=== PATIENT | male | born 1985 | race Caucasian/White ===

== ENCOUNTER → 2016-05-17 | Outpatient (CLI) | payer MEDICARE, OTHER ==
--- NOTE | 2016-05-20 13:51 | XR ---
EXAMINATION TYPE: XR knee complete LT DATE OF EXAM: 05/17/2016 4:42 PM COMPARISON: NONE HISTORY: Injury, pain, fall TECHNIQUE: 3 views left knee FINDINGS: No acute fractures are evident. Joint spaces are preserved. No joint effusion is evident. F ollow-up study can be performed 7-10 days from acute trauma for continued pain. IMPRESSION: 1. Normal left knee
--- NOTE | 2016-05-20 13:52 | XR ---
EXAMINATION TYPE: XR ankle complete LT DATE OF EXAM: 05/17/2016 4:42 PM COMPARISON: 09/09/2013 HISTORY: Fall, pain TECHNIQUE: 3 views left ankle FINDINGS: No acute fractures are evident. Plate and screws from prior open reduction internal fixatio n of the distal fibula is evident. The ankle mortise is intact. Some degenerative change of the talot ibial junction may be present. IMPRESSION: 1. No acute osseous abnormality.
== END | disposition home or self-care (01) ==
LOC: RADXRYALE 16:14
PROVIDERS: ATTEND Physician Assistant Medical
DX: S89.92XA Unspecified injury of left lower leg, initial encounter (principal); S99.912A Unspecified injury of left ankle, initial encounter

== ENCOUNTER → 2016-05-23 | Outpatient (CLI) | payer MEDICARE, OTHER ==
--- NOTE | 2016-05-24 07:37 | XR ---
EXAMINATION TYPE: XR ankle limited LT DATE OF EXAM: 05/23/2016 9:35 AM COMPARISON: NONE HISTORY: Pain TECHNIQUE: 3 views of the left ankle are submitted for evaluation. FINDINGS: There is no evidence for fracture or dislocation. Postoperative plate fixation of the dista l fibula. Ankle mortise is intact. Soft tissues are within normal limits. IMPRESSION: 1. No evidence for acute fracture.
== END | disposition home or self-care (01) ==
LOC: RADXRYALE 09:16
PROVIDERS: ATTEND Physician Assistant Medical
DX: S99.912D Unspecified injury of left ankle, subsequent encounter (principal); M25.572 Pain in left ankle and joints of left foot; X58.XXXD Exposure to other specified factors, subsequent encounter

== ENCOUNTER → 2016-06-20 | Outpatient (CLI) | payer MEDICARE, OTHER ==
--- NOTE | 2016-06-21 07:29 | XR ---
EXAMINATION TYPE: XR wrist complete RT DATE OF EXAM: 06/20/2016 3:25 PM CLINICAL HISTORY: Fall injury last night with pain centered over distal ulna. TECHNIQUE: Frontal, lateral and oblique images of the right wrist are obtained. COMPARISON: None FINDINGS: There is no acute fracture/dislocation evident in the right wrist. The joint spaces in th e right wrist appear within normal limits. The overlying soft tissue appears unremarkable. IMPRESSION: There is no acute fracture or dislocation in the right wrist.
== END | disposition home or self-care (01) ==
LOC: RADXRYALE 15:14
PROVIDERS: ATTEND Physician Assistant Medical
DX: S69.91XA Unspecified injury of right wrist, hand and finger(s), initial encounter (principal)

== ENCOUNTER 2016-11-24 02:30 | Emergency (ER) | payer MEDICARE, OTHER ==
[2016-11-24] MEDS ORDERED: KETOROLAC 60 MG/2 ML VIAL IM STA (02:49)
[2016-11-24] MEDS ORDERED: ORPHENADRINE 30 MG/ML 2 ML VIAL IM STA (02:49)
--- NOTE | 2016-11-24 02:52 | ED ---
General Adult HPI - General Chief complaint: Back Pain/Injury Stated complaint: back/neck pain Time Seen by Provider: 11/24/16 02:45 Source: patient, RN notes reviewed Mode of arrival: ambulatory Limitations: no limitations - History of Present Illness Initial comments: 31-year-old male presents to the emergency Department chief complaint of low back pain that radiates up into the neck. Patient states this started on Friday after he was eating and mowing the weeds in his yard he did have a few falls. Patient states there is been no loss of bowel or bladder function. Patient states he does have back pain from time to time this seems much like that pain is just more intense than his normal pain. Patient states there is no other injuries from his fall. Patient states that he was concerned due to his pains without that he should be seen. Patient states he did not take anything for the pain.Patient denies any recent fever, chills, shortness of breath, chest pain, abdominal pain, nausea vomiting, numbness or tingling, dysuria or hematuria, constipation or diarrhea, headaches or visual changes, or any other current symptoms. - Related Data Previous Rx's Medication Instructions Recorded Ibuprofen [Motrin] 600 mg PO Q6HR PRN #20 tab 11/24/16 Allergies Allergy/AdvReac Type Severity Reaction Status Date / Time No Known Allergies Allergy Verified 11/24/16 02:42 Review of Systems ROS Statement: Those systems with pertinent positive or pertinent negative responses have been documented in the HPI. ROS Other: All systems not noted in ROS Statement are negative. Past Medical History Past Medical History: No Reported History Additional Past Medical History / Comment(s): neuropathy History of Any Multi-Drug Resistant Organisms: None Reported Past Surgical History: Orthopedic Surgery, Tonsillectomy Additional Past Surgical History / Comment(s): left ankle Past Psychological History: Depression Smoking Status: Never smoker Past Alcohol Use History: None Reported Past Drug Use History: None Reported - Past Family History Mother Family Medical History: Hearing Disorder / Deafness Father Family Medical History: Cancer General Exam Limitations: no limitations General appearance: alert, in no apparent distress Head exam: Present: atraumatic, normocephalic, normal inspection ENT exam: Present: normal exam, mucous membranes moist Neck exam: Present: normal inspection. Absent: tenderness, meningismus, lymphadenopathy Respiratory exam: Present: normal lung sounds bilaterally. Absent: respiratory distress, wheezes, rales, rhonchi, stridor Cardiovascular Exam: Present: regular rate, normal rhythm, normal heart sounds. Absent: systolic murmur, diastolic murmur, rubs, gallop, clicks Extremities exam: Present: normal inspection, full ROM, normal capillary refill. Absent: tenderness, pedal edema, joint swelling, calf tenderness Back exam: Present: normal inspection, full ROM, tenderness (Over the midline lumbar spine). Absent: CVA tenderness (R), CVA tenderness (L), muscle spasm, paraspinal tenderness, rash noted Neurological exam: Present: alert, oriented X3 Psychiatric exam: Present: normal affect, normal mood Skin exam: Present: warm, dry, intact, normal color. Absent: rash Course Vital Signs 11/24/16 02:39 Temperature 99 F Pulse Rate 100 Respiratory 18 Rate Blood Pressure 123/79 O2 Sat by Pulse 97 Oximetry Medical Decision Making - Medical Decision Making 30-year-old male presents with back pain. This time patient appears to have a lumbar strain. This time we discussed Motrin Tylenol for pain control. We discussed return parameters and follow-up and all his questions. He stated he understood and he is very plan. This time patient will be discharged home. - Radiology Data Radiology results: image reviewed Interpreted by me: Interpreted by me: Lumbar spine xray: 3 view, no fracture, no dislocation, no bony lesions, no foreign bodies, no soft tissue damage. Waiting official radiology read. Disposition Clinical Impression: Lumbar strain Disposition: HOME SELF-CARE Condition: Stable Instructions: Low Back Strain (ED), Lower Back Exercises (ED) Additional Instructions: Please use medication as discussed. Please follow up with family doctor if symptoms have not improved over the next two days. Please return to the emergency room if your symptoms increase or worsen or for any other concerns. Prescriptions: Ibuprofen [Motrin] 600 mg PO Q6HR PRN #20 tab PRN Reason: Pain Referrals: Titi Aguilar DO [Primary Care Provider] - 1-2 days Time of Disposition: 03:44
--- NOTE | 2016-11-24 03:51 | XR ---
EXAM: XR Lumbar Spine, 2 or 3 Views CLINICAL HISTORY: Reason: Low back pain 3 days. No injury. TECHNIQUE: Frontal and lateral views of the lumbar spine. COMPARISON: Lumbar spine radiographs on 12/03/2015 FINDINGS: Bones: No acute fracture or subluxation identified. No bony lesion. Disc spaces: Stable minimal retrolisthesis of L5 on S1. Stable mild degenerative disc disease. IMPRESSION: No acute abnormality identified.
[2016-11-24 04:02] VITALS: BP 142/68; PULSE 68; RESP 16; TEMP 98.4
== END 2016-11-24 04:00 | disposition home or self-care (01) ==
LOC: EC 02:30
DX: S39.012A Strain of muscle, fascia and tendon of lower back, initial encounter (principal); X58.XXXA Exposure to other specified factors, initial encounter
CPT/HCPCS: 72100; 99283; 96372 ×2; J2360; J1885

== ENCOUNTER 2017-02-01 19:22 | Emergency (ER) | payer MEDICARE, OTHER ==
[2017-02-01 19:57] LABS: Appearance,Urine Clear (Clear); Bilirubin,Urine Negative (Negative); Glucose,Urine (UA) Negative (Negative); Ketones,Urine Negative (Negative); Leukocyte Esterase,Urine Negative (Negative); Nitrite,Urine Negative (Negative); PH, Urine 5.5 (5.0-8.0); Protein,Urine Negative (Negative); Specific Gravity,Urine 1.018 (1.001-1.035); UA Billing (MACRO vs. MICRO) CHEM; Urobilinogen,Urine <2.0 mg/dL (<2.0)
--- NOTE | 2017-02-01 20:35 | ED ---
General Adult HPI - General Chief complaint: Abdominal Pain Stated complaint: Male Time Seen by Provider: 02/01/17 19:48 Source: patient, RN notes reviewed Mode of arrival: ambulatory Limitations: no limitations - History of Present Illness Initial comments: Chief complaint and history of present illness a 31-year-old male here with a complaint of testicular discomfort and low back pain. He reports this started acutely around 5 PM. Patient does have peripheral neuropathy which causes him to have bilateral foot drop. Patient denies any low back injury lifting twisting turning. Denies any nausea sweats or vomiting. No abdominal pain. - Related Data Home Medications Medication Instructions Recorded Confirmed Ibuprofen [Motrin] 800 mg PO TID PRN 02/01/17 02/01/17 Previous Rx's Medication Instructions Recorded Ibuprofen [Motrin] 600 mg PO Q6HR PRN #20 tab 02/01/17 Allergies Allergy/AdvReac Type Severity Reaction Status Date / Time No Known Allergies Allergy Verified 02/01/17 19:42 Review of Systems ROS Statement: Those systems with pertinent positive or pertinent negative responses have been documented in the HPI. Review of systems no visual acuity changes no headache no stiff neck no chest pain or shortness of breath no GI problems. problems include just discomfort to his testes. Patient denies any injuries. Denies being sexually active. No new neuro deficits. All systems were reviewed. Past medical problems significant for neuropathy and history of inherited through the family his grandmother had the same problem. He reports that since age 3 he's had bilateral foot drop. He wears prosthetic devices to keep his ankles at right angles. Nonsmoker nondrinker. ALLERGIES none. ROS Other: All systems not noted in ROS Statement are negative. Past Medical History Past Medical History: No Reported History Additional Past Medical History / Comment(s): neuropathy History of Any Multi-Drug Resistant Organisms: None Reported Past Surgical History: Orthopedic Surgery, Tonsillectomy Additional Past Surgical History / Comment(s): left ankle Past Psychological History: Depression Smoking Status: Never smoker Past Alcohol Use History: None Reported Past Drug Use History: None Reported - Past Family History Mother Family Medical History: Hearing Disorder / Deafness Father Family Medical History: Cancer General Exam - General Exam Comments Initial Comments: General: The patient is awake and alert, and discomfort to both testicles. Starting approximately 5 PM. No direct injury. Left and right field equally uncomfortable. He also complains of mild low back discomfort. States he occasionally has a Linda urinating. Vital signs are temperature 98.5 pulse 97 respiratory rate 16 pulse ox 97% room air blood pressure 157/90 Eye: Pupils are equal, , extra-ocular movements are intact; there is normal conjunctiva bilaterally. No signs of icterus. Ears, nose, mouth and throat: There are moist mucous membranes Neck: The neck is supple, there is no tenderness. Cardiovascular: There is a regular rate and rhythm. No murmur, rub or gallop is appreciated. Respiratory: Lungs are clear to auscultation, respirations are non-labored, breath sounds are equal. No wheezes, stridor, rales, or rhonchi. Gastrointestinal: Soft, non-distended, non-tender abdomen without masses or organomegaly noted. There is no rebound or guarding present. No CVA tenderness. Bowel sounds are unremarkable. [place] normal. Testes normal in size. No pain with examination of the inguinal areas. Normal prostatic reflexes bilaterally. No penile discharge. Back: Mild low back pain Musculoskeletal: Chronic neuropathy necessitating prosthetic devices so he can walk. Neurological: CN II-XII intact, There are no obvious motor or sensory deficits. Coordination appears grossly intact. Speech is normal. No new neurological deficits. Skin: Skin is warm and dry and no rashes or lesions are noted. Limitations: no limitations Course Vital Signs 02/01/17 19:34 Temperature 98.5 F Pulse Rate 97 Respiratory 16 Rate Blood Pressure 157/90 O2 Sat by Pulse 97 Oximetry Medical Decision Making - Medical Decision Making Patient is urine is clean no signs of infection or blood. Patient is also having low back discomfort. No neuro deficits. The patient will this time be placed on ibuprofen 600 mg 1 tablet every 6 hours. Advised to call follow up with his family physician or return emergency room as needed. Clinically no evidence of any pathology to his testicles. Patient states discomfort to his testicles is minimal. He will be treated with ibuprofen advised follow-up with family physician. The pain returns or changes in any fashion to return emergency room as needed. - Lab Data Lab Results 02/01/17 Range/Units 19:45 Urine Color Yellow Urine Appearance Clear (Clear) Urine pH 5.5 (5.0-8.0) Ur Specific [place] 1.018 (1.001-1.035) Urine Protein Negative (Negative) Urine Glucose (UA) Negative (Negative) Urine Ketones Negative (Negative) Urine Blood Negative (Negative) Urine Nitrite Negative (Negative) Urine Bilirubin Negative (Negative) Urine Urobilinogen <2.0 (<2.0) mg/dL Ur Leukocyte Esterase Negative (Negative) Disposition Clinical Impression: Low back pain Disposition: HOME SELF-CARE Condition: Fair Instructions: Low Back Strain (ED), Testicle Pain (ED) Additional Instructions: Take ibuprofen for pain. Follow family physician. Discomfort increases return emergency room. Prescriptions: Ibuprofen [Motrin] 600 mg PO Q6HR PRN #20 tab PRN Reason: Pain Referrals: Titi Aguilar DO [Primary Care Provider] - 1-2 days Time of Disposition: 20:54
[2017-02-01] MEDS ORDERED: IBUPROFEN 600 MG STARTER PACK 4 TAB BTL PO STA (20:51)
[2017-02-01 21:04] VITALS: BP 132/66; PULSE 84; RESP 20; TEMP 98
== END 2017-02-01 21:04 | disposition home or self-care (01) ==
LOC: EC 19:22
DX: M54.5 Low back pain (principal); N50.89 Other specified disorders of the male genital organs; G62.9 Polyneuropathy, unspecified; M21.372 Foot drop, left foot; M21.371 Foot drop, right foot
CPT/HCPCS: 81003; 87086; 99284

== ENCOUNTER 2017-02-18 04:57 | Emergency (ER) | payer MEDICARE, OTHER ==
--- NOTE | 2017-02-18 05:12 | ED ---
General Adult HPI - General Stated complaint: chest pain,arm pain Time Seen by Provider: 02/18/17 05:00 Source: RN notes reviewed - History of Present Illness Initial comments: This is a 31-year-old male comes in stating he has had some chest pain for 3 weeks. Patient states it occurs when he wakes up with a little anxiety. Patient states he sometimes feels short of breath with the pain. Patient states taking a deep breath or moving his arms seems to make the pain worse. And he sometimes gets tingling in both of his fingers. Patient denies any smoking history. Patient denies any diabetes high blood pressure high cholesterol. Patient states he has had this tightness in the middle the night many times before. Patient denies any recent fever chills or cough. Patient denies abdominal pain patient denies nausea vomiting diarrhea. Patient denies any episode diaphoresis. - Related Data Home Medications Medication Instructions Recorded Confirmed Ibuprofen [Motrin] 800 mg PO TID PRN 02/01/17 02/01/17 Previous Rx's Medication Instructions Recorded Ibuprofen [Motrin] 600 mg PO Q6HR PRN #20 tab 02/01/17 Allergies Allergy/AdvReac Type Severity Reaction Status Date / Time No Known Allergies Allergy Verified 02/18/17 05:12 Review of Systems ROS Statement: Those systems with pertinent positive or pertinent negative responses have been documented in the HPI. ROS Other: All systems not noted in ROS Statement are negative. Past Medical History Past Medical History: No Reported History Additional Past Medical History / Comment(s): neuropathy History of Any Multi-Drug Resistant Organisms: None Reported Past Surgical History: Orthopedic Surgery, Tonsillectomy Additional Past Surgical History / Comment(s): left ankle Past Psychological History: Depression Smoking Status: Never smoker Past Alcohol Use History: None Reported Past Drug Use History: None Reported - Past Family History Mother Family Medical History: Hearing Disorder / Deafness Father Family Medical History: Cancer General Exam - General Exam Comments Initial Comments: GENERAL: Patient is well-developed and well-nourished. Patient is nontoxic and well- hydrated and is in no acute distress. ENT: Neck is soft and supple. No significant lymphadenopathy is noted. Oropharynx is clear. Moist mucous membranes. Neck has full range of motion without eliciting any pain. EYES: The sclera were anicteric and conjunctiva were pink and moist. Extraocular movements were intact and pupils were equal round and reactive to light. Eyelids were unremarkable. PULMONARY: Unlabored respirations. Good breath sounds bilaterally. No audible rales rhonchi or wheezing was noted. CARDIOVASCULAR: There is a regular rate and rhythm without any murmurs gallops or rubs. Palpating the patient's chest reproduced the pain. ABDOMEN: Soft and nontender with normal bowel sounds. No palpable organomegaly was noted. There is no palpable pulsatile mass. SKIN: Skin is clear with no lesions or rashes and otherwise unremarkable. NEUROLOGIC: Patient is alert and oriented x3. Cranial nerves II through XII are grossly intact. Motor and sensory are also intact. Normal speech, volume and content. Symmetrical smile. MUSCULOSKELETAL: Normal extremities with adequate strength and full range of motion. No lower extremity swelling or edema. No calf tenderness. LYMPHATICS: No significant lymphadenopathy is noted PSYCHIATRIC: Normal psychiatric evaluation. Normal interpersonal interactions appears functionally intact in deals appropriately with others. No signs of depression. Mild anxiety Course Vital Signs 02/18/17 05:00 Temperature 98.4 F Pulse Rate 96 Respiratory 20 Rate Blood Pressure 149/92 O2 Sat by Pulse 97 Oximetry Medical Decision Making - Medical Decision Making EKG shows normal sinus rhythm at 97 bpm IA interval is 136 dresses 94 QT interval 348 QTC is 441. Patient's EKG shows no ST segment elevation or depression or T wave abnormalities are noted. - Lab Data Result diagrams: 02/18/17 05:30 02/18/17 05:30 Lab Results 02/18/17 02/18/17 02/18/17 Range/Units 05:30 05:30 05:30 WBC 10.5 (3.8-10.6) k/uL RBC 4.25 L (4.30-5.90) m/uL Hgb 14.4 (13.0-17.5) gm/dL Hct 42.7 (39.0-53.0) % MCV 100.4 H (80.0-100.0) fL MCH 33.8 (25.0-35.0) pg MCHC 33.7 (31.0-37.0) g/dL RDW 15.1 (11.5-15.5) % Plt Count 227 (150-450) k/uL Neutrophils % 75 % Lymphocytes % 18 % Monocytes % 4 % Eosinophils % 1 % Basophils % 0 % Neutrophils # 7.9 H (1.3-7.7) k/uL Lymphocytes # 1.8 (1.0-4.8) k/uL Monocytes # 0.4 (0-1.0) k/uL Eosinophils # 0.2 (0-0.7) k/uL Basophils # 0.0 (0-0.2) k/uL Macrocytosis Slight PT (9.0-12.0) sec INR (<1.2) APTT (22.0-30.0) sec Sodium 137 (137-145) mmol/L Potassium 4.2 (3.5-5.1) mmol/L Chloride 104 (98-107) mmol/L Carbon Dioxide 22 (22-30) mmol/L Anion Gap 11 mmol/L BUN 14 (9-20) mg/dL Creatinine 0.60 L (0.66-1.25) mg/dL Est GFR (MDRD) Af Amer >60 (>60 ml/min/1.73 sqM) Est GFR (MDRD) Non-Af >60 (>60 ml/min/1.73 sqM) Glucose 132 H (74-99) mg/dL Calcium 9.5 (8.4-10.2) mg/dL Magnesium 1.9 (1.6-2.3) mg/dL Total Bilirubin 0.4 (0.2-1.3) mg/dL AST 19 (17-59) U/L ALT 42 (21-72) U/L Alkaline Phosphatase 83 (38-126) U/L Total Creatine Kinase 92 (55-170) U/L CK-MB (CK-2) 3.0 H* (0.0-2.4) ng/mL CK-MB (CK-2) Rel Index 3.3 Troponin I <0.012 (0.000-0.034) ng/mL Total Protein 6.8 (6.3-8.2) g/dL Albumin 3.9 (3.5-5.0) g/dL 02/18/17 Range/Units 05:30 WBC (3.8-10.6) k/uL RBC (4.30-5.90) m/uL Hgb (13.0-17.5) gm/dL Hct (39.0-53.0) % MCV (80.0-100.0) fL MCH (25.0-35.0) pg MCHC (31.0-37.0) g/dL RDW (11.5-15.5) % Plt Count (150-450) k/uL Neutrophils % % Lymphocytes % % Monocytes % % Eosinophils % % Basophils % % Neutrophils # (1.3-7.7) k/uL Lymphocytes # (1.0-4.8) k/uL Monocytes # (0-1.0) k/uL Eosinophils # (0-0.7) k/uL Basophils # (0-0.2) k/uL Macrocytosis PT 11.3 (9.0-12.0) sec INR 1.1 (<1.2) APTT 19.5 L (22.0-30.0) sec Sodium (137-145) mmol/L Potassium (3.5-5.1) mmol/L Chloride (98-107) mmol/L Carbon Dioxide (22-30) mmol/L Anion Gap mmol/L BUN (9-20) mg/dL Creatinine (0.66-1.25) mg/dL Est GFR (MDRD) Af Amer (>60 ml/min/1.73 sqM) Est GFR (MDRD) Non-Af (>60 ml/min/1.73 sqM) Glucose (74-99) mg/dL Calcium (8.4-10.2) mg/dL Magnesium (1.6-2.3) mg/dL Total Bilirubin (0.2-1.3) mg/dL AST (17-59) U/L ALT (21-72) U/L Alkaline Phosphatase (38-126) U/L Total Creatine Kinase (55-170) U/L CK-MB (CK-2) (0.0-2.4) ng/mL CK-MB (CK-2) Rel Index Troponin I (0.000-0.034) ng/mL Total Protein (6.3-8.2) g/dL Albumin (3.5-5.0) g/dL Disposition Clinical Impression: Anxiety, Chest wall pain Disposition: HOME SELF-CARE Instructions: Chest Pain (ED) Referrals: Titi Aguilar DO [Primary Care Provider] - 1-2 days Time of Disposition: 06:31
[2017-02-18 05:37] LABS: Basophils % (A) 0 %; CH 34.6; CHCM 34.6; Eosinophils # (A) 0.2 k/uL (0-0.7); Eosinophils % (A) 1 %; HCT 42.7 % (39.0-53.0); HDW 3.14; HGB 14.4 gm/dL (13.0-17.5); Luc # (Auto) 0.16; Luc % (Auto) 2; Lymphocytes # (A) 1.8 k/uL (1.0-4.8); Lymphocytes % (A) 18 %; MCH 33.8 pg (25.0-35.0); MCHC 33.7 g/dL (31.0-37.0); MCV 100.4 fL (80.0-100.0); Macrocytosis Slight; Mean Platelet Volume 6.6; Monocytes # (A) 0.4 k/uL (0-1.0); Monocytes % (A) 4 %; Neutrophils # (A) 7.9 k/uL (1.3-7.7); Neutrophils % (A) 75 %; RBC 4.25 m/uL (4.30-5.90); RDW 15.1 % (11.5-15.5); WBC 10.5 k/uL (3.8-10.6); WBC (Perox) 10.04
[2017-02-18 05:45] LABS: ALT 42 U/L (21-72); AST 19 U/L (17-59); Alkaline Phosphatase 83 U/L (38-126); Anion Gap 11 mmol/L; Blood Urea Nitrogen 14 mg/dL (9-20); Calcium 9.5 mg/dL (8.4-10.2); Carbon Dioxide 22 mmol/L (22-30); Chloride 104 mmol/L (98-107); Glucose 132 mg/dL (74-99); INR 1.1 (<1.2); Magnesium 1.9 mg/dL (1.6-2.3); Non-African American GFR(MDRD) >60 (>60 ml/min/1.73 sqM); Potassium 4.2 mmol/L (3.5-5.1); Prothrombin Time 11.3 sec (9.0-12.0); Sodium 137 mmol/L (137-145); Total Bilirubin 0.4 mg/dL (0.2-1.3); Total Protein 6.8 g/dL (6.3-8.2)
[2017-02-18 06:00] LABS: Partial Thromboplastin Time 19.5 sec (22.0-30.0)
--- NOTE | 2017-02-18 06:03 | XR ---
EXAM: XR Chest, 2 Views CLINICAL HISTORY: Chest pain TECHNIQUE: Frontal and lateral views of the chest. COMPARISON: Chest x-ray dated 10/31/2014 FINDINGS: Lungs: Unremarkable. No consolidation. Pleural space: Unremarkable. No pneumothorax. Heart: Unremarkable. No cardiomegaly. Mediastinum: Unremarkable. Bones/joints: Unremarkable. IMPRESSION: Normal chest x-rays.
[2017-02-18 06:04] LABS: Creatine Kinase 92 U/L (55-170)
[2017-02-18 06:17] LABS: Troponin I <0.012 ng/mL (0.000-0.034)
[2017-02-18 06:40] VITALS: BP 124/58; PULSE 79; RESP 16; TEMP 96.9
== END 2017-02-18 06:39 | disposition home or self-care (01) ==
LOC: EC 04:57
DX: F41.9 Anxiety disorder, unspecified (principal); R07.89 Other chest pain; R06.02 Shortness of breath
CPT/HCPCS: 36415; 71020; 80053; 82550; 82553; 83735; 84484; 85025; 85610; 85730; 93005; 99285

== ENCOUNTER 2017-11-03 15:41 | Emergency (ER) | payer MEDICARE, OTHER ==
[2017-11-03 15:50] VITALS: BP 132/83; PULSE 114; RESP 18; TEMP 98
--- NOTE | 2017-11-03 15:56 | ED ---
Lower Extremity Injury HPI - General Chief Complaint: Extremity Injury, Lower Stated Complaint: foot injury Time Seen by Provider: 11/03/17 15:46 Source: patient, RN notes reviewed Mode of arrival: ambulatory Limitations: no limitations - History of Present Illness Initial Comments: This is a 32-year-old male presents emergency Department with chief complaint of right foot and ankle pain. Patient states that he injured it while mowing the grass. Patient states he tripped and fell. Patient denies any other injuries. Patient states he always wears braces to his lower extremity secondary to neuropathy. Patient denies any notable swelling, bruising. Patient states the pain is along the lateral aspect of his ankle and foot. - Related Data Home Medications Medication Instructions Recorded Confirmed Ibuprofen [Motrin] 800 mg PO TID PRN 02/01/17 02/01/17 Previous Rx's Medication Instructions Recorded Ibuprofen [Motrin] 600 mg PO Q6HR PRN #20 tab 02/01/17 Allergies Allergy/AdvReac Type Severity Reaction Status Date / Time No Known Allergies Allergy Verified 02/18/17 05:12 Review of Systems ROS Statement: Those systems with pertinent positive or pertinent negative responses have been documented in the HPI. ROS Other: All systems not noted in ROS Statement are negative. Past Medical History Past Medical History: No Reported History Additional Past Medical History / Comment(s): neuropathy History of Any Multi-Drug Resistant Organisms: None Reported Past Surgical History: Orthopedic Surgery, Tonsillectomy Additional Past Surgical History / Comment(s): left ankle Past Psychological History: Depression Smoking Status: Never smoker Past Alcohol Use History: Rare Past Drug Use History: None Reported - Past Family History Mother Family Medical History: Hearing Disorder / Deafness Father Family Medical History: Cancer General Exam Limitations: no limitations General appearance: alert, in no apparent distress Head exam: Present: atraumatic, normocephalic, normal inspection Respiratory exam: Present: normal lung sounds bilaterally. Absent: respiratory distress, wheezes, rales, rhonchi, stridor Cardiovascular Exam: Present: regular rate, normal rhythm, normal heart sounds. Absent: systolic murmur, diastolic murmur, rubs, gallop, clicks Extremities exam: Present: other (Right ankle there is tenderness of lateral malleolus and tenderness to lateral right foot there is no obvious deformity no ecchymosis no swelling pedal pulses are present 2+) Skin exam: Present: warm, dry, intact, normal color. Absent: rash Course Vital Signs 11/03/17 15:47 Temperature 98 F Pulse Rate 114 H Respiratory 18 Rate Blood Pressure 132/83 O2 Sat by Pulse 97 Oximetry Medical Decision Making - Medical Decision Making This is a 32-year-old male that presented for right foot and ankle injury. X- rays reviewed by me and radiologist no acute fracture. Patient has a right foot sprain will be discharged this time with conservative treatment rest, ice elevation and ibuprofen. Return parameters were discussed. Disposition Clinical Impression: Right foot sprain Disposition: HOME SELF-CARE Condition: Stable Instructions: Foot Sprain (ED) Additional Instructions: Please return to the Emergency Department if symptoms worsen or any other concerns. Is patient prescribed a controlled substance at d/c from ED?: No Referrals: Titi Aguilar DO [Primary Care Provider] - 1-2 days Time of Disposition: 16:48
--- NOTE | 2017-11-03 16:38 | XR ---
EXAMINATION TYPE: XR foot complete RT DATE OF EXAM: 11/03/2017 COMPARISON: NONE HISTORY: Ankle pain TECHNIQUE: 3 views FINDINGS: I see no fracture nor dislocation. Metatarsals are intact. Joint spaces are normal. IMPRESSION: Normal right foot
--- NOTE | 2017-11-03 16:39 | XR ---
EXAMINATION TYPE: XR ankle complete RT DATE OF EXAM: 11/03/2017 COMPARISON: NONE HISTORY: Ankle pain TECHNIQUE: 3 views FINDINGS: I see no fracture nor dislocation. Joint spaces are normal. Ankle mortise is anatomic. IMPRESSION: Negative right ankle exam
== END 2017-11-03 16:55 | disposition home or self-care (01) ==
LOC: EC 15:41
DX: S93.601A Unspecified sprain of right foot, initial encounter (principal); W01.0XXA Fall on same level from slipping, tripping and stumbling without subsequent striking against object, initial encounter; Y93.89 Activity, other specified
CPT/HCPCS: 99283

== ENCOUNTER → 2017-12-11 | Outpatient (CLI) | payer MEDICARE, OTHER ==
--- NOTE | 2017-12-11 10:52 | XR ---
EXAMINATION TYPE: XR knee complete LT DATE OF EXAM: 12/11/2017 CLINICAL HISTORY: Knee pain after fall injury last week. TECHNIQUE: Three views of the left knee are obtained. COMPARISON: Prior left knee x-ray May 17, 2016 FINDINGS: There is no acute fracture/dislocation evident in left knee. The tri-compartment joint sp aces appear within normal limits. There are 2 persistent ossific densities projecting over the centra l distal femoral epiphysis on frontal view appear to be posterior in location on lateral view, they a re localized to bone on lateral view, frontal view shows some soft tissue extension on current study. Suspect predominantly intraosseous lesions, would favor a nonaggressive etiology. They were present on prior, lateral lesion is seen better on current study however. Sclerotic thin margins are noted. T he overlying soft tissue appears unremarkable. IMPRESSION: There is no acute fracture or dislocation in the left knee. Possible intraosseous lesion s distal femur versus adjacent ossification favoring benign, differential includes prominent fabellas . If patient has persistent pain not related to injury consider further investigation with CT and/or MRI.
== END | disposition home or self-care (01) ==
LOC: RADXRYALE 10:13
PROVIDERS: ATTEND Physician Assistant Medical
DX: M25.562 Pain in left knee (principal)

== ENCOUNTER 2018-01-02 21:18 | Emergency (ER) | payer MEDICARE, OTHER ==
[2018-01-02 21:26] VITALS: BP 145/88; RESP 20; TEMP 98.3
--- NOTE | 2018-01-02 21:56 | XR ---
EXAMINATION TYPE: XR finger RT DATE OF EXAM: 01/02/2018 COMPARISON: NONE HISTORY: Laceration TECHNIQUE: 3 views FINDINGS: 3 views of the right middle finger were obtained. I see no fracture nor dislocation. There is no sign of a foreign body. Joint spaces are normal. IMPRESSION: Minimal soft tissue deformity at the tip of the middle finger. Otherwise negative exam.
--- NOTE | 2018-01-02 21:56 | ED ---
General Adult HPI - General Chief complaint: Wound/Laceration Stated complaint: Lac/Finger Time Seen by Provider: 01/02/18 21:27 Source: patient, RN notes reviewed Mode of arrival: ambulatory Limitations: no limitations - History of Present Illness Initial comments: 32-year-old male presents to the emergency determine for chief complaint of laceration to the distal right third digit. Patient states this occurred when he was closing his screen door after letting his dog again. Patient states he has some tenderness in the distal phalanx of the right third digit. Patient denies any other injuries. Patient states his tetanus is up-to-date in the past 4 years. Patient denies difficulty moving the right third digit. Patient denies history of diabetes. Patient has no other complaints at this time including shortness of breath, chest pain, abdominal pain, nausea or vomiting, headache, or visual changes. - Related Data Home Medications Medication Instructions Recorded Confirmed Ibuprofen [Motrin] 800 mg PO TID PRN 02/01/17 02/01/17 Previous Rx's Medication Instructions Recorded Ibuprofen [Motrin] 600 mg PO Q6HR PRN #20 tab 02/01/17 Allergies Allergy/AdvReac Type Severity Reaction Status Date / Time No Known Allergies Allergy Verified 01/02/18 21:24 Review of Systems ROS Statement: Those systems with pertinent positive or pertinent negative responses have been documented in the HPI. ROS Other: All systems not noted in ROS Statement are negative. Past Medical History Past Medical History: No Reported History Additional Past Medical History / Comment(s): neuropathy History of Any Multi-Drug Resistant Organisms: None Reported Past Surgical History: Orthopedic Surgery, Tonsillectomy Additional Past Surgical History / Comment(s): left ankle Past Psychological History: Depression Smoking Status: Never smoker Past Alcohol Use History: Rare Past Drug Use History: None Reported - Past Family History Mother Family Medical History: Hearing Disorder / Deafness Father Family Medical History: Cancer General Exam Limitations: no limitations General appearance: alert, in no apparent distress Head exam: Present: atraumatic, normocephalic, normal inspection Eye exam: Present: normal appearance. Absent: scleral icterus, conjunctival injection ENT exam: Present: normal exam, mucous membranes moist Neck exam: Present: normal inspection, full ROM. Absent: tenderness, meningismus, lymphadenopathy Respiratory exam: Present: normal lung sounds bilaterally. Absent: respiratory distress, wheezes, rales, rhonchi, stridor Cardiovascular Exam: Present: regular rate, normal rhythm, normal heart sounds. Absent: systolic murmur, diastolic murmur, rubs, gallop, clicks Extremities exam: Present: full ROM (Full range of motion of the right third digit including the MCP, PIP, and DIP joints.), tenderness (Mild tenderness to the distal phalanx of the right third digit), normal capillary refill ( Capillary refill less than 2 seconds and radial pulse 2+ in the right upper extremity), other (Sensation intact in the right third digit. There is a 1 cm superficial laceration to the left third digit. It is well approximated. Bleeding is under control. No drainage or signs of infection such as spreading redness or streaking redness. No foreign bodies noted.) Neurological exam: Present: alert, oriented X3, CN II-XII intact Psychiatric exam: Present: normal affect, normal mood Course Vital Signs 01/02/18 01/02/18 21:24 22:23 Temperature 98.3 F Pulse Rate 116 H 101 H Respiratory 20 Rate Blood Pressure 145/88 O2 Sat by Pulse 98 Oximetry Medical Decision Making - Medical Decision Making 32-year-old male presents to the emergency department for a laceration of the distal right third finger of her about one hour ago. Patient states he slammed it in a sliding door. Patient's tetanus is up-to-date. Patient is a 1 cm laceration to the distal phalanx of the third finger of the right hand. Laceration appears superficial. Patient has full range of motion of the right third digit.. X-ray of the right finger shows no sign of foreign body. Minimal soft tissue deformity at the tip of the 3rd finger. Otherwise negative exam. Patient was soaked in soap and water and cleaned with iodine. Wound was inspected for foreign bodies and none were found as it is very superficial. Laceration was then repaired with Exofin. Patient tolerated this well. I did discuss monitoring for signs of infection such as spreading redness or streaking redness and to return if this occurs. Patient will likely fall off on its own. He will follow-up with primary care in 1-2 days. He is aware to return if he has any worsening symptoms. Patient's heart rate did decrease from 116 to 101, patient states he is still feeling nervous after hitting his finger in the door which is likely the cause of minor tachycardia. Disposition Clinical Impression: Laceration Disposition: HOME SELF-CARE Condition: Good Instructions: Laceration (ED), Skin Adhesive Care (ED) Additional Instructions: Please let glue fall off on its own. Monitor for signs of infection such as spreading redness or streaking redness and return if these occur. Follow-up with primary care in 1-2 days. Return to the emergency department if you have any worsening symptoms. Is patient prescribed a controlled substance at d/c from ED?: No Referrals: Titi Aguilar DO [Primary Care Provider] - 1-2 days Time of Disposition: 22:21
[2018-01-02] MEDS ORDERED: TOPICAL SKIN ADHESIVE 1 EACH AMP TOPICAL ONE (21:59)
[2018-01-02 22:23] VITALS: PULSE 101
== END 2018-01-02 22:25 | disposition home or self-care (01) ==
LOC: EC 21:18
DX: S61.212A Laceration without foreign body of right middle finger without damage to nail, initial encounter (principal); W22.8XXA Striking against or struck by other objects, initial encounter; Y92.009 Unspecified place in unspecified non-institutional (private) residence as the place of occurrence of the external cause
CPT/HCPCS: 99283

== ENCOUNTER 2019-09-20 02:56 | Emergency (ER) | payer MEDICARE, OTHER ==
[2019-09-20 03:13] VITALS: PULSE 86; RESP 18; TEMP 97.9
--- NOTE | 2019-09-20 03:32 | ED ---
Fall HPI - General Chief Complaint: Back Pain/Injury Stated Complaint: fall Time Seen by Provider: 09/20/19 02:58 Source: patient, RN notes reviewed, old records reviewed Mode of arrival: ambulatory - History of Present Illness Initial Comments: This is a 33-year-old male presented with mechanical trip and fall trip and fall falling backwards causing back pain and Botox pain. Patient is able ambulate does present to ER under own power. No loss of bowel or bladder neurological complaint. 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, recurrent falls Fall Witnessed: no Place Fall Occurred: work Loss of Consciousness: none Prolonged Down Time?: no Symptoms Prior to Fall: none Location: back, buttocks Severity: moderate, severe Quality: aching Context: tripped/slipped Associated Symptoms: denies - Related Data Home Medications Medication Instructions Recorded Confirmed Ibuprofen [Motrin] 800 mg PO TID PRN 02/01/17 02/01/17 Previous Rx's Medication Instructions Recorded Ibuprofen [Motrin] 600 mg PO Q6HR PRN #20 tab 02/01/17 Allergies Allergy/AdvReac Type Severity Reaction Status Date / Time No Known Allergies Allergy Verified 09/20/19 03:12 Review of Systems ROS Statement: Those systems with pertinent positive or pertinent negative responses have been documented in the HPI. ROS Other: All systems not noted in ROS Statement are negative. Past Medical History Past Medical History: No Reported History Additional Past Medical History / Comment(s): neuropathy History of Any Multi-Drug Resistant Organisms: None Reported Past Surgical History: Orthopedic Surgery, Tonsillectomy Additional Past Surgical History / Comment(s): left ankle Past Psychological History: Depression Smoking Status: Never smoker Past Alcohol Use History: Rare Past Drug Use History: None Reported - Past Family History Mother Family Medical History: Hearing Disorder / Deafness Father Family Medical History: Cancer General Exam Limitations: no limitations General appearance: alert, in no apparent distress Head exam: Present: atraumatic, normocephalic, normal inspection Eye exam: Present: normal appearance, PERRL, EOMI. Absent: scleral icterus, conjunctival injection, periorbital swelling ENT exam: Present: normal exam, mucous membranes moist Neck exam: Present: normal inspection. Absent: tenderness, meningismus, lymphadenopathy Respiratory exam: Present: normal lung sounds bilaterally. Absent: respiratory distress, wheezes, rales, rhonchi, stridor Cardiovascular Exam: Present: regular rate, normal rhythm, normal heart sounds. Absent: systolic murmur, diastolic murmur, rubs, gallop, clicks GI/Abdominal exam: Present: soft, normal bowel sounds. Absent: distended, tenderness, guarding, rebound, rigid Extremities exam: Present: normal inspection, full ROM, normal capillary refill. Absent: tenderness, pedal edema, joint swelling, calf tenderness Back exam: Present: normal inspection Neurological exam: Present: alert, oriented X3, CN II-XII intact Psychiatric exam: Present: normal affect, normal mood Skin exam: Present: warm, dry, intact, normal color. Absent: rash Course Vital Signs 09/20/19 09/20/19 03:06 05:08 Temperature 97.9 F 97.9 F Pulse Rate 86 86 Respiratory 18 18 Rate Blood Pressure 138/88 138/84 O2 Sat by Pulse 99 99 Oximetry - Reevaluation(s) Reevaluation #1: Medical records reviewed Patient asymptomatic pain is improved with no neurological findings, able to ambulate Medical Decision Making - Medical Decision Making 33 male DF status post mechanical fall a few days. No complaints pain was just been persistent. - Radiology Data Radiology results: report reviewed (X-rays of the spine is negative for acute disease), image reviewed Disposition Clinical Impression: Mechanical back pain, Mid back pain, Thoracic back pain, Fall Disposition: HOME SELF-CARE Condition: Good Instructions (If sedation given, give patient instructions): Acute Low Back Pain (ED) Is patient prescribed a controlled substance at d/c from ED?: No Referrals: Nonstaff,Physician [Primary Care Provider] - 1-2 days
[2019-09-20] MEDS ORDERED: HYDROcodone/APAP 5-325MG 1 EACH TAB PO STA (03:41)
[2019-09-20] MEDS ORDERED: KETOROLAC 60 MG/2 ML VIAL IM STA (03:41)
--- NOTE | 2019-09-20 04:32 | XR ---
EXAMINATION TYPE: XR spine complete AP and Lat DATE OF EXAM: 09/20/2019 COMPARISON: NONE HISTORY: Fall. Neck pain. TECHNIQUE: 9 views FINDINGS: Cervical thoracic and lumbar vertebra have normal alignment. There is mild anterior spurrin g at C5-6 endplates. Posterior elements are intact. There is no thoracic paraspinal mass. There is no compression fracture. The sacroiliac joints appear intact. There are no cervical ribs. IMPRESSION: Minor degenerative disc changes C5-6. Negative exam. No fracture.
[2019-09-20 05:09] VITALS: BP 138/84
== END 2019-09-20 05:20 | disposition home or self-care (01) ==
LOC: EC 02:56
DX: M54.6 Pain in thoracic spine (principal); Z98.890 Other specified postprocedural states; W01.0XXA Fall on same level from slipping, tripping and stumbling without subsequent striking against object, initial encounter; Y93.89 Activity, other specified; Y92.096 Garden or yard of other non-institutional residence as the place of occurrence of the external cause
CPT/HCPCS: 72082; 99284; 96372; J1885

== ENCOUNTER 2021-01-13 06:56 | Emergency (ER) | payer MEDICARE, OTHER ==
[2021-01-13 07:04] VITALS: BP 124/83; PULSE 99; RESP 22; TEMP 98
[2021-01-13] MEDS ORDERED: DICYCLOMINE 20 MG TAB PO STA (07:15)
--- NOTE | 2021-01-13 07:39 | XR ---
EXAMINATION TYPE: XR KUB DATE OF EXAM: 01/13/2021 7:30 AM CLINICAL HISTORY: Lower back pain and constipation. TECHNIQUE: 3 Upright KUB images of the abdomen are obtained. COMPARISON: None. FINDINGS: Some paucity of bowel gas. Gas seen in nondistended stomach. Scattered gas seen in nondiste nded small and large bowel loops. There is no visceromegaly, pneumoperitoneum, or abnormal calcificat ion appreciated. The lung bases are clear and the osseous structures are intact. IMPRESSION: Overall nonspecific strongly favor nonobstructive bowel gas pattern.
[2021-01-13 07:43] LABS: Appearance,Urine Clear (Clear); Bilirubin,Urine Negative (Negative); Blood,Urine Negative (Negative); Color,Urine Yellow; Glucose,Urine (UA) Negative (Negative); Ketones,Urine Negative (Negative); Leukocyte Esterase,Urine Negative (Negative); Nitrite,Urine Negative (Negative); PH, Urine 5.5 (5.0-8.0); Protein,Urine Negative (Negative); Specific Gravity,Urine 1.026 (1.001-1.035); Urobilinogen,Urine <2.0 mg/dL (<2.0)
--- NOTE | 2021-01-13 07:54 | ED ---
Abdominal Pain HPI - General Chief Complaint: Abdominal Pain Stated Complaint: ABD Pain Time Seen by Provider: 01/13/21 07:05 Source: patient, RN notes reviewed Mode of arrival: ambulatory Limitations: no limitations - History of Present Illness Initial Comments: 35-year-old male presents emergency Department with chief complaint lower abdominal cramping. Patient states started approximate one hour prior arrival. No fevers chills denies any nausea vomiting diarrhea or dysuria no hematuria patient states he feels constipated which is not a usual. Patient offers no other complaints. No prior abdominal surgeries. - Related Data Home Medications Medication Instructions Recorded Confirmed Ibuprofen [Motrin] 800 mg PO TID PRN 02/01/17 02/01/17 Previous Rx's Medication Instructions Recorded Ibuprofen [Motrin] 600 mg PO Q6HR PRN #20 tab 02/01/17 Dicyclomine [Bentyl] 20 mg PO TID #15 tablet 01/13/21 Allergies Allergy/AdvReac Type Severity Reaction Status Date / Time No Known Allergies Allergy Verified 01/13/21 07:04 Review of Systems ROS Statement: Those systems with pertinent positive or pertinent negative responses have been documented in the HPI. ROS Other: All systems not noted in ROS Statement are negative. Past Medical History Past Medical History: No Reported History Additional Past Medical History / Comment(s): neuropathy History of Any Multi-Drug Resistant Organisms: None Reported Past Surgical History: Orthopedic Surgery, Tonsillectomy Additional Past Surgical History / Comment(s): left ankle Past Psychological History: Depression Smoking Status: Never smoker Past Alcohol Use History: Rare Past Drug Use History: None Reported - Past Family History Mother Family Medical History: Hearing Disorder / Deafness Father Family Medical History: Cancer General Exam Limitations: no limitations General appearance: alert, in no apparent distress Head exam: Present: atraumatic, normocephalic, normal inspection Eye exam: Present: normal appearance, PERRL, EOMI. Absent: scleral icterus, conjunctival injection, periorbital swelling Respiratory exam: Present: normal lung sounds bilaterally. Absent: respiratory distress, wheezes, rales, rhonchi, stridor Cardiovascular Exam: Present: regular rate, normal rhythm, normal heart sounds. Absent: systolic murmur, diastolic murmur, rubs, gallop, clicks GI/Abdominal exam: Present: soft, normal bowel sounds. Absent: distended, tenderness, guarding, rebound, rigid Back exam: Absent: CVA tenderness (R), CVA tenderness (L) Course Vital Signs 01/13/21 07:02 Temperature 98 F Pulse Rate 99 Respiratory 22 Rate Blood Pressure 124/83 O2 Sat by Pulse 97 Oximetry Medical Decision Making - Medical Decision Making X-rays shows moderate stool and gas, urinalysis unremarkable patient feels improved after Bentyl symptoms started 1 hour prior to arrival with normal vitals. Return parameters were discussed. - Lab Data Lab Results 01/13/21 Range/Units 07:00 Urine Color Yellow Urine Appearance Clear (Clear) Urine pH 5.5 (5.0-8.0) Ur Specific [place] 1.026 (1.001-1.035) Urine Protein Negative (Negative) Urine Glucose (UA) Negative (Negative) Urine Ketones Negative (Negative) Urine Blood Negative (Negative) Urine Nitrite Negative (Negative) Urine Bilirubin Negative (Negative) Urine Urobilinogen <2.0 (<2.0) mg/dL Ur Leukocyte Esterase Negative (Negative) Disposition Clinical Impression: Abdominal pain Disposition: HOME SELF-CARE Condition: Stable Instructions (If sedation given, give patient instructions): Abdominal Pain (ED) Additional Instructions: Please return to the Emergency Department if symptoms worsen or any other concerns. Prescriptions: Dicyclomine [Bentyl] 20 mg PO TID #15 tablet Is patient prescribed a controlled substance at d/c from ED?: No Referrals: Louie Stockton MD [Primary Care Provider] - 1-2 days Time of Disposition: 07:53
== END 2021-01-13 08:01 | disposition home or self-care (01) ==
LOC: EC 06:56
DX: R10.30 Lower abdominal pain, unspecified (principal)
CPT/HCPCS: 74018; 81003; 99284

== ENCOUNTER 2021-08-25 13:38 | Emergency (ER) | payer MEDICARE, OTHER ==
[2021-08-25 13:50] VITALS: BP 132/80; PULSE 90; RESP 18; TEMP 98.6
--- NOTE | 2021-08-25 15:56 | XR ---
EXAMINATION TYPE: XR knee complete RT DATE OF EXAM: 08/25/2021 COMPARISON: NONE HISTORY: Pain TECHNIQUE: 3 views FINDINGS: I see no fracture nor dislocation. Knee joint spaces are normal. There are no pathologic ca lcifications. IMPRESSION: Negative right knee exam.
--- NOTE | 2021-08-25 15:57 | XR ---
EXAMINATION TYPE: XR ankle complete RT DATE OF EXAM: 08/25/2021 COMPARISON: 11/03/2017 HISTORY: Pain TECHNIQUE: 3 views FINDINGS: Ankle mortise is anatomic. I see no fracture nor dislocation. Joint spaces are normal. IMPRESSION: Negative right ankle exam. No change.
--- NOTE | 2021-08-25 15:58 | XR ---
EXAMINATION TYPE: XR foot complete RT DATE OF EXAM: 08/25/2021 COMPARISON: NONE HISTORY: Pain TECHNIQUE: 3 views FINDINGS: There is nondisplaced transverse fracture across the base of the third and fourth metatarsa ls. The toes appear intact. Joint spaces are normal. IMPRESSION: Acute metatarsal fractures.
--- NOTE | 2021-08-25 16:29 | ED ---
Lower Extremity Injury HPI - General Chief Complaint: Extremity Injury, Lower Stated Complaint: RT foot and knee pain, Fell Time Seen by Provider: 08/25/21 16:12 Source: patient, RN notes reviewed Mode of arrival: wheelchair Limitations: no limitations - History of Present Illness Initial Comments: This is a pleasant 35-year-old male who presents after tripping and his room and injuring his right foot and right leg. Patient complaining of sharp pain which is exacerbated by attempted ambulation, movement, palpation. Denies any other injuries. No distal paresthesias. No headache, no fever or chills, no changes in vision or hearing, no sore throat or difficulty with speech, no neck pain, no chest pain or shortness of breath, no abdominal pain, no nausea or vomiting, no changes in urination or bowel movements, no numbness or tingling, no skin rashes or lesions. 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 Patient has his own shop clerk. - Related Data Home Medications Medication Instructions Recorded Confirmed Ibuprofen [Motrin] 800 mg PO TID PRN 02/01/17 02/01/17 Previous Rx's Medication Instructions Recorded Ibuprofen [Motrin] 600 mg PO Q6HR PRN #20 tab 02/01/17 Dicyclomine [Bentyl] 20 mg PO TID #15 tablet 01/13/21 Allergies Allergy/AdvReac Type Severity Reaction Status Date / Time No Known Allergies Allergy Verified 08/25/21 13:50 Review of Systems ROS Statement: Those systems with pertinent positive or pertinent negative responses have been documented in the HPI. ROS Other: All systems not noted in ROS Statement are negative. Past Medical History Past Medical History: No Reported History Additional Past Medical History / Comment(s): neuropathy History of Any Multi-Drug Resistant Organisms: None Reported Past Surgical History: Orthopedic Surgery, Tonsillectomy Additional Past Surgical History / Comment(s): left ankle Past Psychological History: Depression Smoking Status: Never smoker Past Alcohol Use History: Rare Past Drug Use History: None Reported - Past Family History Mother Family Medical History: Hearing Disorder / Deafness Father Family Medical History: Cancer General Exam Limitations: no limitations General appearance: alert, in no apparent distress Head exam: Present: atraumatic, normocephalic, normal inspection Eye exam: Present: normal appearance, PERRL, EOMI. Absent: scleral icterus, conjunctival injection, periorbital swelling ENT exam: Present: normal exam, mucous membranes moist Neck exam: Present: normal inspection, full ROM. Absent: tenderness, meningismus, lymphadenopathy Respiratory exam: Present: normal lung sounds bilaterally. Absent: respiratory distress, wheezes, rales, rhonchi, stridor Cardiovascular Exam: Present: regular rate, normal rhythm, normal heart sounds. Absent: systolic murmur, diastolic murmur, rubs, gallop, clicks GI/Abdominal exam: Present: soft, normal bowel sounds. Absent: distended, tenderness, guarding, rebound, rigid Extremities exam: Present: normal inspection, full ROM, tenderness, normal capillary refill, other (Tenderness to the dorsum of the foot which is mild due to the patient's neuropathy. Neurovascular status intact. Skin closed. No crepitus. No proximal or distal injuries.). Absent: pedal edema, joint swelling, calf tenderness Back exam: Present: normal inspection Neurological exam: Present: alert, oriented X3, CN II-XII intact Psychiatric exam: Present: normal affect, normal mood Skin exam: Present: warm, dry, intact, normal color. Absent: rash Course Vital Signs 08/25/21 13:48 Temperature 98.6 F Pulse Rate 90 Respiratory 18 Rate Blood Pressure 132/80 O2 Sat by Pulse 98 Oximetry Procedures - Orthopedic Splinting/Casting Injury #1 Side: right Lower Extremity Injury Location: short leg (Posterior mold), foot Lower Extremity Immobilizer: posterior splint, Gaurav wrap, fiberglass cast Other Orthopedic Equipment: walker (Patient has his own walker, neurovascular status intact both pre-and post-application.) Medical Decision Making - Medical Decision Making Metatarsal fractures per radiology. I did review these films myself. Patient appears to have a fracture to the proximal end of the third and fourth metatarsals. These are closed, nondisplaced. Patient placed in a splint. Patient has known neuropathy due to previous medical condition. Vascular access appears to be normal. - Radiology Data Radiology results: report reviewed, image reviewed Disposition Clinical Impression: Closed fracture of metatarsal of right foot Narrative: Closed, proximal right third and fourth metatarsal fractures right foot, nondisplaced Disposition: HOME SELF-CARE Condition: Good Instructions (If sedation given, give patient instructions): Foot Fracture in Adults (ED), Splint Care (ED) Additional Instructions: Follow-up with your regular physician as directed. Return to the ER immediately if any symptoms worsen, new symptoms arise, or any other problems develop. Use a walker at all times. Follow-up with your shop clerk on Friday as planned. Is patient prescribed a controlled substance at d/c from ED?: No Referrals: Pancho Vega DPM [STAFF PHYSICIAN] - As Soon As Possible Time of Disposition: 16:52
== END 2021-08-25 17:23 | disposition home or self-care (01) ==
LOC: EC 13:38
DX: S92.301A Fracture of unspecified metatarsal bone(s), right foot, initial encounter for closed fracture (principal); W18.30XA Fall on same level, unspecified, initial encounter
CPT/HCPCS: 29515; 99284

== ENCOUNTER 2022-02-20 12:26 | Inpatient (IN) | payer MEDICARE, MEDICAID ==
--- NOTE | 2022-02-20 15:17 | ED ---
Psych HPI - General Chief Complaint: Psychiatric Symptoms Stated Complaint: mental health Time Seen by Provider: 02/20/22 14:47 Source: patient, EMS, RN notes reviewed Mode of arrival: EMS Limitations: no limitations - History of Present Illness Initial Comments: 36-year-old male presents emergency Department with chief complaint of a psychiatric help. Patient is currently very paranoid, having difficulty at home cc orally stress. Patient denies any suicidal or homicidal denies illicit drug use no alcohol abuse. Patient states this is from the stress of taking care of his mother states that he cannot do this anymore. Patient states she's can have a breakdown. - Related Data Home Medications Medication Instructions Recorded Confirmed Clindamycin Phosphate [Cleocin T 1 applic TOPICAL BID 02/20/22 02/20/22 1%] Nugenix Free Testosterone Booster 3 cap PO DAILY 02/20/22 02/20/22 Nugenix Multivitamin 2 tab PO DAILY 02/20/22 02/20/22 Nugenix Pm 4 cap PO HS 02/20/22 02/20/22 Nugenix Ultimate 4 tab PO DAILY 02/20/22 02/20/22 Nugenix Vitality Booster 3 cap PO DAILY 02/20/22 02/20/22 Nystatin [Nystop] 1 applic TOPICAL BID 02/20/22 02/20/22 Omeprazole 40 mg PO DAILY 02/20/22 02/20/22 Semaglutide [Ozempic] See Taper SQ WE 02/20/22 02/20/22 Vitamin D3(Unknown) 1 tab PO DAILY 02/20/22 02/20/22 metFORMIN HCL 1,000 mg PO BID 02/20/22 02/20/22 Allergies Allergy/AdvReac Type Severity Reaction Status Date / Time No Known Allergies Allergy Verified 02/20/22 17:45 Review of Systems ROS Statement: Those systems with pertinent positive or pertinent negative responses have been documented in the HPI. ROS Other: All systems not noted in ROS Statement are negative. Past Medical History Past Medical History: No Reported History Additional Past Medical History / Comment(s): neuropathy History of Any Multi-Drug Resistant Organisms: None Reported Past Surgical History: Orthopedic Surgery, Tonsillectomy Additional Past Surgical History / Comment(s): left ankle Past Psychological History: Depression Smoking Status: Never smoker Past Alcohol Use History: Rare Past Drug Use History: None Reported - Past Family History Mother Family Medical History: Hearing Disorder / Deafness Father Family Medical History: Cancer General Exam Limitations: no limitations General appearance: alert, in no apparent distress Head exam: Present: atraumatic, normocephalic, normal inspection Eye exam: Present: normal appearance, PERRL, EOMI. Absent: scleral icterus, conjunctival injection, periorbital swelling ENT exam: Present: normal exam, mucous membranes moist Neck exam: Present: normal inspection, full ROM. Absent: tenderness, meningismus, lymphadenopathy Respiratory exam: Present: normal lung sounds bilaterally. Absent: respiratory distress, wheezes, rales, rhonchi, stridor Cardiovascular Exam: Present: regular rate, normal rhythm, normal heart sounds. Absent: systolic murmur, diastolic murmur, rubs, gallop, clicks GI/Abdominal exam: Present: soft, normal bowel sounds. Absent: distended, tenderness, guarding, rebound, rigid Course Vital Signs 02/20/22 02/20/22 13:11 19:19 Temperature 98.2 F 98.5 F Pulse Rate 86 97 Respiratory 16 14 Rate Blood Pressure 143/83 116/74 O2 Sat by Pulse 100 97 Oximetry Medical Decision Making - Lab Data Lab Results 02/20/22 02/20/22 Range/Units 15:31 19:18 Urine Opiates Screen Not Detected (NotDetected) Ur Oxycodone Screen Not Detected (NotDetected) Urine Methadone Screen Not Detected (NotDetected) Ur Propoxyphene Screen Not Detected (NotDetected) Ur Barbiturates Screen Not Detected (NotDetected) U Tricyclic Antidepress Not Detected (NotDetected) Ur Phencyclidine Scrn Not Detected (NotDetected) Ur Amphetamines Screen Not Detected (NotDetected) U Methamphetamines Scrn Not Detected (NotDetected) U Benzodiazepines Scrn Not Detected (NotDetected) Urine Cocaine Screen Not Detected (NotDetected) U Marijuana (THC) Screen Not Detected (NotDetected) Coronavirus (PCR) Not Detected (Not Detectd) Disposition Clinical Impression: Depression Disposition: [facility] Time of Disposition: 06:00
[2022-02-20 15:52] LABS: Amphetamine Screen,Urine Not Detected (NotDetected); Barbiturate Screen,Urine Not Detected (NotDetected); Benzodiazepines Screen,Urine Not Detected (NotDetected); Cocaine Screen,Urine Not Detected (NotDetected); Methadone Screen, Urine Not Detected (NotDetected); Opiate Screen,Urine Not Detected (NotDetected); Oxycodone Screen, Urine Not Detected (NotDetected); Phencyclidine Screen,Urine Not Detected (NotDetected); Tricyclic Antidepressant,Urine Not Detected (NotDetected); Urn Cannabinoid Scrn Not Detected (NotDetected)
[2022-02-20] MEDS ORDERED: MAGNESIUM HYDROXIDE 2,400 MG/10 ML CUP PO PRN (21:20)
[2022-02-20] MEDS ORDERED: haloperidoL 5 MG TAB PO PRN (21:20)
[2022-02-20] MEDS ORDERED: HALOPERIDOL LACTATE 5 MG/ML 1 ML VIAL IM PRN (21:20)
[2022-02-20] MEDS ORDERED: LORazepam 1 MG/0.5 ML VIAL IM PRN (21:20)
[2022-02-20] MEDS ORDERED: MAG HYDROX/AL HYDROX/SIMETH 30 ML CUP PO PRN (21:20)
[2022-02-20] MEDS ORDERED: LORazepam 1 MG TAB PO PRN (21:20)
[2022-02-21] MEDS: PANTOPRAZOLE 40 MG TABLET PO SCH (07:40)
[2022-02-21] MEDS: NICOTINE 14MG/24HR PATCH TRANSDERM SCH (07:40)
[2022-02-21] MEDS: metFORMIN 500 MG TAB PO SCH ×2 (07:40→20:05)
[2022-02-21] MEDS: CHOLECALCIFEROL 25 MCG (1000 IU) TABLET PO SCH (07:40)
[2022-02-21 07:41] LABS: Glucose,Whole Blood 117 mg/dL (70-110)
[2022-02-21] MEDS: NYSTATIN 100,000 UNIT/GM POWD 15 GM TOPICAL SCH ×2 (07:41→20:06)
[2022-02-21] MEDS: NON FORMULARY DRUG (Clindamycin Phosphate [Cleocin T 1%] 60 ML Lotion) TOPICAL SCH ×2 (07:42→20:06)
[2022-02-21 10:17] LABS: Basophils % (A) 0 %; Eosinophils # (A) 0.1 k/uL (0-0.7); Eosinophils % (A) 1 %; HCT 41.4 % (39.0-53.0); HGB 14.2 gm/dL (13.0-17.5); Lymphocytes # (A) 1.5 k/uL (1.0-4.8); Lymphocytes % (A) 16 %; MCH 35.4 pg (25.0-35.0); MCHC 34.1 g/dL (31.0-37.0); MCV 103.8 fL (80.0-100.0); Macrocytosis Slight; Mean Platelet Volume 7.4; Monocytes # (A) 0.3 k/uL (0-1.0); Monocytes % (A) 3 %; Neutrophils # (A) 7.2 k/uL (1.3-7.7); Neutrophils % (A) 79 %; Platelet Count 230 k/uL (150-450); RBC 3.99 m/uL (4.30-5.90); RDW 14.7 % (11.5-15.5); WBC 9.2 k/uL (3.8-10.6)
[2022-02-21 10:28] LABS: ALT 51 U/L (4-49); AST 40 U/L (17-59); African American GFR (CKD) >90 (>60 ml/min/1.73 sqM); Albumin 4.4 g/dL (3.5-5.0); Alkaline Phosphatase 88 U/L (38-126); Anion Gap 15 mmol/L; Bilirubin, Delta 0.1 mg/dL (0.0-0.2); Bilirubin,Unconjugated 0.4 mg/dL (0.0-1.1); Blood Urea Nitrogen 15 mg/dL (9-20); Calcium 9.4 mg/dL (8.4-10.2); Carbon Dioxide 24 mmol/L (22-30); Chloride 102 mmol/L (98-107); Glucose 148 mg/dL (74-99); Non-African American GFR(CKD) >90 (>60 ml/min/1.73 sqM); Potassium 4.4 mmol/L (3.5-5.1); Sodium 141 mmol/L (137-145); Total Bilirubin 0.5 mg/dL (0.2-1.3); Total Protein 7.2 g/dL (6.3-8.2)
[2022-02-21 13:00] LABS: Glucose,Whole Blood 86 mg/dL (70-110)
--- NOTE | 2022-02-21 13:00 | P.CONS ---
History of Present Illness - History of Present Illness This is a pleasant 36 years old male with past medical history of bilateral l ower extremity neuropathy since childhood that he uses brace to help him walk, he has also history of depression he was admitted to the mental health unit. Apparently patient was admitted to the mental health unit because of his burn no kinking and difficulty dealing with daily distress. Medical consult was requested 14 medical management. Patient was lying in his bed comfortable. Relaxed and he denies any specific symptoms. No chest pain or dyspnea. No abdominal pain or vomiting or diarrhea. No urgency or burning. No headache weakness numbness or dizziness. Patient states that he has history of bilateral foot and lower extremity neuropathy since childhood, he has bilateral foot drop and he was braces to help him walk and now he has a wheelchair at bedside. Patient was asked medical staff to resume his brace, however because medical team has not experienced about the safety uses .'s of Sandra braces therefore going to ask for physical therapy management. Also patient states that he hasn't seen a neurologist for the last 5 years, we would recommend patient follow up with a neurologist as an outpatient as well. Patient is hemodynamically stable. Vitals unremarkable cbc, bmp and liver enzymes, alt slightly up at 51. tsh normal 2.2. urine drug screen is negative. coronal varus not detected Review of Systems CONSTITUTIONAL: No fever, no malaise, no fatigue. HEENT: No recent visual problems or hearing problems. Denied any sore throat. CARDIOVASCULAR: No orthopnea, PND, no palpitations, no syncope. PULMONARY: No shortness of breath, no cough, no hemoptysis. GASTROINTESTINAL: No diarrhea, no nausea, no vomiting, no abdominal pain. Normoactive bowel sounds. NEUROLOGICAL: No headaches, no weakness, no numbness. HEMATOLOGICAL: Denies any bleeding or petechiae. GENITOURINARY: Denies any burning micturition, frequency, or urgency. MUSCULOSKELETAL/RHEUMATOLOGICAL: Denies any joint pain, swelling, or any muscle pain. ENDOCRINE: Denies any polyuria or polydipsia. Past Medical History Past Medical History: No Reported History Additional Past Medical History / Comment(s): neuropathy History of Any Multi-Drug Resistant Organisms: None Reported Past Surgical History: Orthopedic Surgery, Tonsillectomy Additional Past Surgical History / Comment(s): left ankle Past Psychological History: Depression Smoking Status: Never smoker Past Alcohol Use History: Rare Past Drug Use History: None Reported - Past Family History Mother Family Medical History: Hearing Disorder / Deafness Father Family Medical History: Cancer Medications and Allergies Home Medications Medication Instructions Recorded Confirmed Type Clindamycin Phosphate [Cleocin T 1 applic TOPICAL BID 02/20/22 02/20/22 History 1%] Nugenix Free Testosterone Booster 3 cap PO DAILY 02/20/22 02/20/22 History Nugenix Multivitamin 2 tab PO DAILY 02/20/22 02/20/22 History Nugenix Pm 4 cap PO HS 02/20/22 02/20/22 History Nugenix Ultimate 4 tab PO DAILY 02/20/22 02/20/22 History Nugenix Vitality Booster 3 cap PO DAILY 02/20/22 02/20/22 History Nystatin [Nystop] 1 applic TOPICAL BID 02/20/22 02/20/22 History Omeprazole 40 mg PO DAILY 02/20/22 02/20/22 History Semaglutide [Ozempic] See Taper SQ WE 02/20/22 02/20/22 History Vitamin D3(Unknown) 1 tab PO DAILY 02/20/22 02/20/22 History metFORMIN HCL 1,000 mg PO BID 02/20/22 02/20/22 History Allergies Allergy/AdvReac Type Severity Reaction Status Date / Time No Known Allergies Allergy Verified 02/20/22 17:45 Physical Exam Vitals: Vital Signs Temp Pulse Pulse Resp BP BP Pulse Ox 02/20/22 22:49 97.5 F L 103 H 20 122/85 98 02/20/22 19:19 98.5 F 97 14 116/74 97 02/20/22 13:11 98.2 F 86 16 143/83 100 Intake and Output 02/20/22 02/21/22 02/21/22 22:59 06:59 14:59 Other: Weight 138.9 kg -GENERAL: The patient is alert and oriented x3, not in any acute distress. Obese HEENT: Pupils are round and equally reacting to light. EOMI. No scleral icterus. No conjunctival pallor. Normocephalic, atraumatic. No pharyngeal erythema. No thyromegaly. CARDIOVASCULAR: S1 and S2 present. No murmurs, rubs, or gallops. PULMONARY: Chest is clear to auscultation, no wheezing or crackles. ABDOMEN: Soft, nontender, nondistended, normoactive bowel sounds. No palpable organomegaly. MUSCULOSKELETAL: No joint swelling or deformity. EXTREMITIES: No cyanosis, clubbing, or pedal edema. -NEUROLOGICAL: Gross neurological examination did not reveal any focal deficits. Chronic bilateral foot drops, he has normal dorsi or plantar flexion on either ankle joint SKIN: No rashes. no petechiae. Results CBC & Chem 7: 02/21/22 09:39 02/21/22 09:39 Labs: Abnormal Lab Results - Last 24 Hours (Table) 02/21/22 02/21/22 02/21/22 Range/Units 07:40 09:39 09:39 RBC 3.99 L (4.30-5.90) m/uL MCV 103.8 H (80.0-100.0) fL MCH 35.4 H (25.0-35.0) pg Glucose 148 H (74-99) mg/dL POC Glucose (mg/dL) 117 H (70-110) mg/dL ALT 51 H (4-49) U/L Assessment and Plan Assessment: - Depression, paranoid thinking and other psychiatric illnesses: Management as per sec primary team - Chronic bilateral lower extremity neuropathy since childhood, patient uses a braces As an outpatient, last for physical therapy evaluation and follow-up with the neurologist as an outpatient, Dr. Frank history suggested for the patient - Obesity: Follow-up outpatient We recommend patient follow up with PCP in one week after discharge Thank you for consulting us, we will sign off the case. Please call us as needed
[2022-02-21] MEDS: FERROUS SULFATE 325 MG TAB PO SCH (13:17)
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
[2022-02-21 15:01] LABS: Chol/HDL Ratio 3.87 Ratio; LDL Cholesterol,Calculated 92.2 mg/dL (0.0-131.0)
[2022-02-21 17:37] LABS: Glucose,Whole Blood 113 mg/dL (70-110)
[2022-02-22] MEDS: NYSTATIN 100,000 UNIT/GM POWD 15 GM TOPICAL SCH ×2 (07:55→20:03)
[2022-02-22] MEDS: CHOLECALCIFEROL 25 MCG (1000 IU) TABLET PO SCH (07:55)
[2022-02-22] MEDS: PANTOPRAZOLE 40 MG TABLET PO SCH (07:55)
[2022-02-22] MEDS: metFORMIN 500 MG TAB PO SCH ×2 (07:55→20:03)
[2022-02-22] MEDS: NON FORMULARY DRUG (Clindamycin Phosphate [Cleocin T 1%] 60 ML Lotion) TOPICAL SCH ×2 (07:56→20:02)
[2022-02-22] MEDS: NICOTINE 14MG/24HR PATCH TRANSDERM SCH (09:21)
[2022-02-22] MEDS: ACETAMINOPHEN TAB 325 MG TAB PO PRN (12:59)
[2022-02-22 13:07] LABS: Glucose,Whole Blood 106 mg/dL (70-110)
--- NOTE | 2022-02-22 13:33 | P.PN ---
Progress Note - Text Progress Note Date: 02/22/22 Interval History: Patient was seen wandering the hallways and was directable and agreeable to speak with press writer in the office. Currently, the patient maintains that he does not want to start any medication for depression. He does admit that he continues to feel increased stress in regards to his financial situation as well as his relationship with his mother. However, the patient is currently denying any suicidal or homicidal ideation, intention, and/or plan. He did sign an AMA form for discharge but is up on Friday. We discussed that we will hold him until Friday to observe for any issues or concerns and to address the initial concerns of his homicidal ideation towards his mother. He was informed that we will perform a duty to warn. Mental Status Exam: General Appearance: Patient appears to be stated age is alert, directable, and cooperative. Improved hygiene and grooming today. Behavior: Patient is calmly seated without any agitated behavior. Blank stares. Speech: Patient's speech is fluent and nonpressured. Monotone. Mood/Affect: Mood is improving mildly, affect is congruent and constricted. Slightly oppositional. Suicidality/Homicidality: Patient denies having any suicidal or homicidal ideation intent or plan. Perceptions: Patient denies any visual hallucinations and denies any auditory hallucinations Though content/process: There is no evidence of any delusional thought content and thought process is linear and goal-directed. Memory and concentration: AOX3, grossly intact for the purposes of this session Judgment and insight: Fair Vital Signs Temp 98.4 F 02/22/22 07:02 Pulse 97 02/22/22 07:02 Resp 16 02/22/22 07:02 BP 120/71 02/22/22 07:02 Pulse Ox 98 02/20/22 22:49 FiO2 Laboratory Results WBC 9.2 k/uL (3.8-10.6) 02/21/22 09:39 RBC 3.99 m/uL (4.30-5.90) L 02/21/22 09:39 Hgb 14.2 gm/dL (13.0-17.5) 02/21/22 09:39 Hct 41.4 % (39.0-53.0) 02/21/22 09:39 MCV 103.8 fL (80.0-100.0) H 02/21/22 09:39 MCH 35.4 pg (25.0-35.0) H 02/21/22 09:39 MCHC 34.1 g/dL (31.0-37.0) 02/21/22 09:39 RDW 14.7 % (11.5-15.5) 02/21/22 09:39 Plt Count 230 k/uL (150-450) 02/21/22 09:39 MPV 7.4 02/21/22 09:39 Neutrophils % 79 % 02/21/22 09:39 Lymphocytes % 16 % 02/21/22 09:39 Monocytes % 3 % 02/21/22 09:39 Eosinophils % 1 % 02/21/22 09:39 Basophils % 0 % 02/21/22 09:39 Neutrophils # 7.2 k/uL (1.3-7.7) 02/21/22 09:39 Lymphocytes # 1.5 k/uL (1.0-4.8) 02/21/22 09:39 Monocytes # 0.3 k/uL (0-1.0) 02/21/22 09:39 Eosinophils # 0.1 k/uL (0-0.7) 02/21/22 09:39 Basophils # 0.0 k/uL (0-0.2) 02/21/22 09:39 Macrocytosis Slight 02/21/22 09:39 Sodium 141 mmol/L (137-145) 02/21/22 09:39 Potassium 4.4 mmol/L (3.5-5.1) 02/21/22 09:39 Chloride 102 mmol/L (98-107) 02/21/22 09:39 Carbon Dioxide 24 mmol/L (22-30) 02/21/22 09:39 Anion Gap 15 mmol/L 02/21/22 09:39 BUN 15 mg/dL (9-20) 02/21/22 09:39 Creatinine 0.77 mg/dL (0.66-1.25) 02/21/22 09:39 Est GFR (CKD-EPI)AfAm >90 (>60 ml/min/1.73 sqM) 02/21/22 09:39 Est GFR (CKD-EPI)NonAf >90 (>60 ml/min/1.73 sqM) 02/21/22 09:39 Glucose 148 mg/dL (74-99) H 02/21/22 09:39 POC Glucose (mg/dL) 106 mg/dL (70-110) 02/22/22 13:03 POC Glu Investigator Claims ID Buzz Garcia 02/22/22 13:[address] Glu mg/dL 123 02/21/22 09:39 Hemoglobin A1c 5.9 % (0.0-6.0) 02/21/22 09:39 Calcium 9.4 mg/dL (8.4-10.2) 02/21/22 09:39 Total Bilirubin 0.5 mg/dL (0.2-1.3) 02/21/22 09:39 Conjugated Bilirubin 0.0 mg/dL (0.0-0.3) 02/21/22 09:39 Unconjugated Bilirubin 0.4 mg/dL (0.0-1.1) 02/21/22 09:39 Delta Bilirubin 0.1 mg/dL (0.0-0.2) 02/21/22 09:39 AST 40 U/L (17-59) 02/21/22 09:39 ALT 51 U/L (4-49) H 02/21/22 09:39 Alkaline Phosphatase 88 U/L (38-126) 02/21/22 09:39 Total Protein 7.2 g/dL (6.3-8.2) 02/21/22 09:39 Albumin 4.4 g/dL (3.5-5.0) 02/21/22 09:39 Triglycerides 136.00 mg/dL (0.00-149.00) 02/21/22 09:39 Cholesterol 161.00 mg/dL (0.00-200.00) 02/21/22 09:39 LDL Cholesterol, Calc 92.2 mg/dL (0.0-131.0) 02/21/22 09:39 VLDL Cholesterol, Calc 27.20 mg/dL (5.00-40.00) 02/21/22 09:39 HDL Cholesterol 41.60 mg/dL (40.00-60.00) 02/21/22 09:39 Cholesterol/HDL Ratio 3.87 Ratio 02/21/22 09:39 TSH 2.270 mIU/L (0.465-4.680) 02/21/22 09:39 Urine Opiates Screen Not Detected (NotDetected) 02/20/22 15:31 Ur Oxycodone Screen Not Detected (NotDetected) 02/20/22 15:31 Urine Methadone Screen Not Detected (NotDetected) 02/20/22 15:31 Ur Propoxyphene Screen Not Detected (NotDetected) 02/20/22 15:31 Ur Barbiturates Screen Not Detected (NotDetected) 02/20/22 15:31 U Tricyclic Antidepress Not Detected (NotDetected) 02/20/22 15:31 Ur Phencyclidine Scrn Not Detected (NotDetected) 02/20/22 15:31 Ur Amphetamines Screen Not Detected (NotDetected) 02/20/22 15:31 U Methamphetamines Scrn Not Detected (NotDetected) 02/20/22 15:31 U Benzodiazepines Scrn Not Detected (NotDetected) 02/20/22 15:31 Urine Cocaine Screen Not Detected (NotDetected) 02/20/22 15:31 U Marijuana (THC) Screen Not Detected (NotDetected) 02/20/22 15:31 Coronavirus (PCR) Not Detected (Not Detectd) 02/20/22 19:18 Assessment 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 Patient has signed adult voluntary form. -Medications: We discussed the possible initiation of Cymbalta in order to help address his neuropathy as well as symptoms of depression and anxiety. The patient is not this time. He is voluntary and therefore has a right to refuse medications. -When necessary Ativan and Haldol for agitation/aggression. -SW on board for discharge planning. Encouraged the patient to participate in milieu.
[2022-02-22] MEDS: FERROUS SULFATE 325 MG TAB PO SCH (17:34)
[2022-02-23] MEDS: PANTOPRAZOLE 40 MG TABLET PO SCH (08:02)
[2022-02-23] MEDS: NICOTINE 14MG/24HR PATCH TRANSDERM SCH (08:02)
[2022-02-23] MEDS: CHOLECALCIFEROL 25 MCG (1000 IU) TABLET PO SCH (08:02)
[2022-02-23] MEDS: metFORMIN 500 MG TAB PO SCH ×3 (08:03→18:45)
[2022-02-23] MEDS: NON FORMULARY DRUG (Clindamycin Phosphate [Cleocin T 1%] 60 ML Lotion) TOPICAL SCH ×2 (08:03→20:05)
[2022-02-23] MEDS: NYSTATIN 100,000 UNIT/GM POWD 15 GM TOPICAL SCH ×2 (08:04→20:22)
[2022-02-23] MEDS: ACETAMINOPHEN TAB 325 MG TAB PO PRN (08:06)
[2022-02-23] MEDS: FERROUS SULFATE 325 MG TAB PO SCH (12:57)
[2022-02-24] MEDS: metFORMIN 500 MG TAB PO SCH ×2 (08:36→17:19)
[2022-02-24] MEDS: CHOLECALCIFEROL 25 MCG (1000 IU) TABLET PO SCH (08:37)
[2022-02-24] MEDS: PANTOPRAZOLE 40 MG TABLET PO SCH (08:37)
[2022-02-24] MEDS: NICOTINE 14MG/24HR PATCH TRANSDERM SCH (08:38)
[2022-02-24] MEDS: NYSTATIN 100,000 UNIT/GM POWD 15 GM TOPICAL SCH ×2 (08:38→20:47)
[2022-02-24] MEDS: NON FORMULARY DRUG (Clindamycin Phosphate [Cleocin T 1%] 60 ML Lotion) TOPICAL SCH ×2 (08:38→20:24)
[2022-02-24] MEDS: FERROUS SULFATE 325 MG TAB PO SCH (13:11)
[2022-02-24] MEDS ORDERED: LOPERAMIDE 2 MG CAP PO PRN (14:19)
--- NOTE | 2022-02-24 14:37 | P.PN ---
Progress Note - Text Progress Note Date: 02/23/22 Interval history: Patient was seen playing cards with peer and was directable and agreeable to speak with creative writer. He is calm and cooperative but appears to minimize his depression. At this time patient denies any suicidal or homicidal ideation, intent or plan. He denies any auditory or visual hallucinations. He continues to decline a trial of an antidepressant. Mental status exam: General Appearance: Patient appears to be stated age, is obese with fair hygiene. Behavior: No agitated behavior. Patient is calm and directable. Speech: Patient's speech is fluent and non-pressured. Mood/Affect: Mood is "good", affect is mildly depressed. Suicidality/Homicidality: Patient denies having any suicidal or homicidal ideation, intent or plan. Perceptions: Patient denies any auditory or visual hallucinations. Though content/process: There is no evidence of any delusional thought content and thought process is linear. Memory and concentration: AOX3, grossly intact for the purposes of this session Judgment and insight: improving mildly Assessment/Plan: Continue with current diagnosis. Patient continues to meet criteria for inpatient psychiatric admission for symptom stabilization and safety. Patient will be maintained on current psychotropic medication regimen. Monitor for medication compliance and for any psychotropic medication side effects. Will continue to monitor ongoing response to treatment. Encouraged participation in milieu.
--- NOTE | 2022-02-24 23:19 | P.PN ---
Progress Note - Text Progress Note Date: 02/24/22 Interval history: Patient was found in bed with covers on. He states he is not feeling well and thinks he has the flu. Nurse was notified, order flu and COVID tests, and inform medical doctor. Flu and COVID test returned negative later in the day. Patient continues to be calm and cooperative, but objectively appears to minimize his depression. At this time, patient denies any suicidal or homicidal ideation, intent or plan. He denies any auditory or visual hallucinations. He continues to decline a trial of an antidepressant. Vital signs reviewed and he is afebrile. Mental status exam: General Appearance: Patient appears to be stated age, is obese with fair hygiene. Behavior: No agitated behavior. Patient is calm and directable. He is laying in bed with covers on. Speech: Patient's speech is fluent and non-pressured. Mood/Affect: Mood is "good", affect is mildly depressed. Suicidality/Homicidality: Patient denies having any suicidal or homicidal ideation, intent or plan. Perceptions: Patient denies any auditory or visual hallucinations. Though content/process: There is no evidence of any delusional thought content and thought process is linear. Memory and concentration: AOX3, grossly intact for the purposes of this session Judgment and insight: improving mildly Assessment/Plan: Continue with current diagnosis. Patient continues to meet criteria for inpatient psychiatric admission for symptom stabilization and safety. He continues to decline antidepressant. Medical doctor notified to evaluate patient. COVID and flu tests are negative. Will continue to monitor ongoing response to treatment. Encouraged participation in milieu.
[2022-02-25 07:19] VITALS: BP 121/77; PULSE 89; RESP 14; TEMP 98
[2022-02-25] MEDS: PANTOPRAZOLE 40 MG TABLET PO SCH (08:38)
[2022-02-25] MEDS: CHOLECALCIFEROL 25 MCG (1000 IU) TABLET PO SCH (08:38)
[2022-02-25] MEDS: metFORMIN 500 MG TAB PO SCH (08:38)
[2022-02-25] MEDS: NYSTATIN 100,000 UNIT/GM POWD 15 GM TOPICAL SCH (08:39)
[2022-02-25] MEDS: NICOTINE 14MG/24HR PATCH TRANSDERM SCH (08:40)
[2022-02-25] MEDS: NON FORMULARY DRUG (Clindamycin Phosphate [Cleocin T 1%] 60 ML Lotion) TOPICAL SCH (08:40)
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
[2022-02-27] MEDS ORDERED: NON FORMULARY DRUG (Semaglutide [Ozempic] 0.25 MG/0.2 ML Each) SQ SCH (09:00)
== END 2022-02-25 12:40 | disposition home or self-care (01) | DRG 882 ==
LOC: EC 12:26 → 3MHU 21:16
PROVIDERS: ADMIT Psychiatry & Neurology Psychiatry; ATTEND Psychiatry & Neurology Psychiatry
DX: F43.25 Adjustment disorder with mixed disturbance of emotions and conduct (principal); F41.9 Anxiety disorder, unspecified; G57.93 Unspecified mononeuropathy of bilateral lower limbs; M21.371 Foot drop, right foot; M21.372 Foot drop, left foot; R45.850 Homicidal ideations; Z20.822 Contact with and (suspected) exposure to COVID-19; Z79.84 Long term (current) use of oral hypoglycemic drugs
CPT/HCPCS: 80053; 80061; 80306; 82075; 82248; 83036; 84443; 85025; 87502; 87635; 99285

== ENCOUNTER 2022-06-04 12:23 | Emergency (ER) | payer MEDICARE, OTHER ==
[2022-06-04 12:28] VITALS: RESP 18; TEMP 97.6
--- NOTE | 2022-06-04 12:43 | ED ---
General Adult HPI - General Chief complaint: Fall Stated complaint: fall, head injury Time Seen by Provider: 06/04/22 12:29 Source: patient, RN notes reviewed Mode of arrival: ambulatory Limitations: no limitations - History of Present Illness Initial comments: 36-year-old male presents emergency Department with chief complaint of slip and fall on ice. Patient states she's taken to trash and fell. Patient complains of head trauma. He states he did not lose consciousness but complains of head pain. Patient has a neck, back pain states he also twisted his knee complains of some left knee pain he does wear braces which are chronic of his knee, ankle. Patient denies any paresthesias otherwise denies any other trauma. - Related Data Home Medications Medication Instructions Recorded Confirmed Clindamycin Phosphate [Cleocin T 1 applic TOPICAL BID 02/20/22 02/20/22 1%] Nugenix Free Testosterone Booster 3 cap PO DAILY 02/20/22 02/20/22 Nugenix Multivitamin 2 tab PO DAILY 02/20/22 02/20/22 Nugenix Pm 4 cap PO HS 02/20/22 02/20/22 Nugenix Ultimate 4 tab PO DAILY 02/20/22 02/20/22 Nugenix Vitality Booster 3 cap PO DAILY 02/20/22 02/20/22 Nystatin [Nystop] 1 applic TOPICAL BID 02/20/22 02/20/22 Omeprazole 40 mg PO DAILY 02/20/22 02/20/22 Semaglutide [Ozempic] See Taper SQ WE 02/20/22 02/20/22 Vitamin D3(Unknown) 1 tab PO DAILY 02/20/22 02/20/22 metFORMIN HCL 1,000 mg PO BID 02/20/22 02/20/22 Previous Rx's Medication Instructions Recorded Ferrous Sulfate [Iron (65 MG 325 mg PO W/LUNCH 30 Days tab 02/25/22 Elemental)] Allergies Allergy/AdvReac Type Severity Reaction Status Date / Time No Known Allergies Allergy Verified 06/04/22 12:27 Review of Systems ROS Statement: Those systems with pertinent positive or pertinent negative responses have been documented in the HPI. ROS Other: All systems not noted in ROS Statement are negative. Past Medical History Past Medical History: No Reported History Additional Past Medical History / Comment(s): neuropathy History of Any Multi-Drug Resistant Organisms: None Reported Past Surgical History: Orthopedic Surgery, Tonsillectomy Additional Past Surgical History / Comment(s): left ankle Past Psychological History: Depression Smoking Status: Never smoker Past Alcohol Use History: Rare Past Drug Use History: None Reported - Past Family History Mother Family Medical History: Hearing Disorder / Deafness Father Family Medical History: Cancer General Exam Limitations: no limitations General appearance: alert, in no apparent distress Head exam: Present: atraumatic, normocephalic, normal inspection Eye exam: Present: normal appearance, PERRL, EOMI. Absent: scleral icterus, conjunctival injection, periorbital swelling ENT exam: Present: normal exam, normal oropharynx, mucous membranes moist Neck exam: Present: normal inspection, full ROM. Absent: tenderness, meningismus, lymphadenopathy Respiratory exam: Present: normal lung sounds bilaterally. Absent: respiratory distress, wheezes, rales, rhonchi, stridor Cardiovascular Exam: Present: regular rate, normal rhythm, normal heart sounds. Absent: systolic murmur, diastolic murmur, rubs, gallop, clicks Extremities exam: Present: normal inspection, full ROM, normal capillary refill. Absent: tenderness, pedal edema, joint swelling, calf tenderness Back exam: Present: full ROM. Absent: tenderness Neurological exam: Present: alert, oriented X3, CN II-XII intact, reflexes normal. Absent: motor sensory deficit Skin exam: Present: warm, dry, intact, normal color. Absent: rash Course Vital Signs 06/04/22 12:24 Temperature 97.6 F Pulse Rate 99 Respiratory 18 Rate Blood Pressure 143/90 O2 Sat by Pulse 99 Oximetry Medical Decision Making - Medical Decision Making Was pt. sent in by a medical professional or institution (, PA, CORRUGATOR SUPERVISOR, urgent care, hospital, or usp...) When possible be specific @ -No Did you speak to anyone other than the patient for history (EMS, parent, family, police, friend...)? What history was obtained from this source @ -No Did you review nursing and triage notes (agree or disagree)? Why? @ -I reviewed and agree with nursing and triage notes Were old charts reviewed (outside hosp., previous admission, EMS record, old EKG, old radiological studies, urgent care reports/EKG's, usp records)? Report findings @ -No old charts were reviewed Differential Diagnosis (chest pain, altered mental status, abdominal pain women, abdominal pain men, vaginal bleeding, weakness, fever, dyspnea, syncope, headache, dizziness, GI bleed, back pain, seizure, CVA, palpatations, mental health)? @ -Head contusion, intracranial hemorrhage, skull fracture, left knee sprain, femur fracture, tibia fracture, this list is not all inclusive EKG interpreted by me (3pts min.). @ -None X-rays interpreted by me (1pt min.). @ -X-ray of the left knee shows no acute abnormality CT interpreted by me (1pt min.). @ -CT of brain does not show any evidence of scrotal hemorrhage, skull fracture or mass effect. U/S interpreted by me (1pt. min.). @ -None done What testing was considered but not performed or refused? (CT, X-rays, U/S, labs)? Why? @ -None What meds were considered but not given or refused? Why? @ -None Did you discuss the management of the patient with other professionals (professionals i.e. , PA, CORRUGATOR SUPERVISOR, lab, RT, psych nurse, social services aide, visually impaired teacher, teacher, licensing officer, rn case manager)? Give summary @ -No Was smoking cessation discussed for >3mins.? @ -No Was critical care preformed (if so, how long)? @ -No Were there social determinants of health that impacted care today? How? (Homelessness, low income, unemployed, alcoholism, drug addiction, transportation, low edu. Level, literacy, decrease access to med. care, [facility], rehab)? @ -No Was there de-escalation of care discussed even if they declined (Discuss DNR or withdrawal of care, Hospice)? DNR status @ -No What co-morbidities impacted this encounter? (DM, HTN, Smoking, COPD, CAD, Cancer, CVA, ARF, Chemo, Hep., AIDS, mental health diagnosis, sleep apnea, morbid obesity)? @ -None Was patient admitted / discharged? Hospital course, mention meds given and route, prescriptions, significant lab abnormalities, going to OR and other pertinent info. @ -Discharge patient has close head injury, no intracranial hemorrhage, x-ray of the left knee was negative showing left knee sprain. Undiagnosed new problem with uncertain prognosis? @ -No Drug Therapy requiring intensive monitoring for toxicity (Heparin, Nitro, Insulin, Cardizem)? @ -No Were any procedures done? @ -No Diagnosis/symptom? @ -Head contusion Acute, or Chronic, or Acute on Chronic? @ -Acute Uncomplicated (without systemic symptoms) or Complicated (systemic symptoms)? @ -Uncomplicated Side effects of treatment? @ -No Exacerbation, Progression, or Severe Exacerbation? @ -No Poses a threat to life or bodily function? How? (Chest pain, USA, [place], pneumonia, PE, COPD, DKA, ARF, appy, cholecystitis, CVA, Diverticulitis, Homicidal, Suicidal, threat to staff... and all critical care pts) @ -No Diagnosis/symptom? @ -Left knee sprain Acute, or Chronic, or Acute on Chronic? @ -Acute Uncomplicated (without systemic symptoms) or Complicated (systemic symptoms)? @ -Uncomplicated Side effects of treatment? @ -none Exacerbation, Progression, or Severe Exacerbation @ -no Poses a threat to life or bodily function? @ -no Disposition Clinical Impression: Fall, Head contusion, Left knee sprain Disposition: HOME SELF-CARE Condition: Stable Instructions (If sedation given, give patient instructions): Head Injury (ED) Additional Instructions: Please return to the Emergency Department if symptoms worsen or any other concerns. Is patient prescribed a controlled substance at d/c from ED?: No Referrals: Louie Stockton MD [Primary Care Provider] - 1-2 days Titi Mcclain DO [Doctor of Osteopathic Medicine] - 1-2 days Time of Disposition: 14:05
--- NOTE | 2022-06-04 13:06 | CT ---
EXAMINATION TYPE: CT brain wo con DATE OF EXAM: 06/04/2022 COMPARISON: 08/16/2011 HISTORY: FALL, HIT HEAD, pain CT DLP: 1110.4 mGycm. Automated Exposure Control for Dose Reduction was Utilized. TECHNIQUE: CT scan of the head is performed without contrast. FINDINGS: There is no acute intracranial hemorrhage, mass effect, or midline shift identified. The ventricles and sulci are within normal limits in size. The globes are intact and the visualized sin uses are clear. Cerebellar tonsils are low-lying in position at the level magnum. IMPRESSION: No acute intracranial hemorrhage, mass effect, or midline shift is seen.
--- NOTE | 2022-06-04 13:57 | XR ---
EXAMINATION TYPE: XR knee complete LT DATE OF EXAM: 06/04/2022 1:47 PM INDICATION: Patient age:Male; 36 years old; Reason for study: pain; PHH. COMPARISON: Knee radiograph 12/11/2017 TECHNIQUE: The Left knee(s) was examined in 3 projections. Frontal, lateral and oblique. FINDINGS: No evidence of any acute osseous pathology, joint space narrowing, soft tissue swelling, or joint effusion is noted. There are 2 unchanged ossific densities project over the central distal f emoral epiphysis in the posterior knee. IMPRESSION: 1. No acute osseous pathology. 2. Stable ossific densities within the posterior knee and considered benign. These may represent fabe lla.
[2022-06-04 14:19] VITALS: BP 128/73; PULSE 93
== END 2022-06-04 14:21 | disposition home or self-care (01) ==
LOC: EC 12:23
DX: S83.92XA Sprain of unspecified site of left knee, initial encounter (principal); S00.93XA Contusion of unspecified part of head, initial encounter; F32.A Depression, unspecified; Z79.84 Long term (current) use of oral hypoglycemic drugs; W00.0XXA Fall on same level due to ice and snow, initial encounter
CPT/HCPCS: 70450; 99284

== ENCOUNTER 2022-12-10 13:56 | Emergency (ER) | payer MEDICARE, OTHER ==
[2022-12-10 14:06] VITALS: TEMP 97.8
--- NOTE | 2022-12-10 14:10 | ED ---
General Adult HPI - General Stated complaint: chest pain Time Seen by Provider: 12/10/22 13:56 Source: patient, RN notes reviewed, old records reviewed - History of Present Illness Initial comments: This is a 37-year-old male who presents emergency Department with a past medical history significant for anxiety. Patient states every time he gets stressed he starts have some chest pain. Patient states today he was stressed because his bills were being paid. Patient states he started having some chest pain was sharp and lasted 5 seconds and he denies any associated symptoms. Patient denies any shortness of breath or diaphoretic episodes. Patient denies any abdominal pain patient nausea. Patient denied a fever. Patient denies any symptoms currently. Patient denies any diabetes hypertension high cholesterol. Patient denies any smoking. - Related Data Home Medications Medication Instructions Recorded Confirmed Clindamycin Phosphate [Cleocin T 1 applic TOPICAL BID 02/20/22 02/20/22 1%] Nugenix Free Testosterone Booster 3 cap PO DAILY 02/20/22 02/20/22 Nugenix Multivitamin 2 tab PO DAILY 02/20/22 02/20/22 Nugenix Pm 4 cap PO HS 02/20/22 02/20/22 Nugenix Ultimate 4 tab PO DAILY 02/20/22 02/20/22 Nugenix Vitality Booster 3 cap PO DAILY 02/20/22 02/20/22 Nystatin [Nystop] 1 applic TOPICAL BID 02/20/22 02/20/22 Omeprazole 40 mg PO DAILY 02/20/22 02/20/22 Semaglutide [Ozempic] See Taper SQ WE 02/20/22 02/20/22 Vitamin D3(Unknown) 1 tab PO DAILY 02/20/22 02/20/22 metFORMIN HCL 1,000 mg PO BID 02/20/22 02/20/22 Previous Rx's Medication Instructions Recorded Ferrous Sulfate [Iron (65 MG 325 mg PO W/LUNCH 30 Days tab 02/25/22 Elemental)] Allergies Allergy/AdvReac Type Severity Reaction Status Date / Time No Known Allergies Allergy Verified 06/04/22 12:27 Review of Systems ROS Statement: Those systems with pertinent positive or pertinent negative responses have been documented in the HPI. ROS Other: All systems not noted in ROS Statement are negative. Past Medical History Past Medical History: No Reported History Additional Past Medical History / Comment(s): neuropathy History of Any Multi-Drug Resistant Organisms: None Reported Past Surgical History: Orthopedic Surgery, Tonsillectomy Additional Past Surgical History / Comment(s): left ankle Past Psychological History: Depression Smoking Status: Never smoker Past Alcohol Use History: Rare Past Drug Use History: None Reported - Past Family History Mother Family Medical History: Hearing Disorder / Deafness Father Family Medical History: Cancer General Exam - General Exam Comments Initial Comments: GENERAL: Patient is well-developed and well-nourished. Patient is nontoxic and well- hydrated and is in no acute distress. ENT: Neck is soft and supple. No significant lymphadenopathy is noted. Oropharynx is clear. Moist mucous membranes. Neck has full range of motion without eliciting any pain. EYES: The sclera were anicteric and conjunctiva were pink and moist. Extraocular movements were intact and pupils were equal round and reactive to light. Eyelids were unremarkable. PULMONARY: Unlabored respirations. Good breath sounds bilaterally. No audible rales rhonchi or wheezing was noted. CARDIOVASCULAR: There is a regular rate and rhythm without any murmurs gallops or rubs. ABDOMEN: Soft and nontender with normal bowel sounds. SKIN: Skin is clear with no lesions or rashes and otherwise unremarkable. NEUROLOGIC: Patient is alert and oriented x3. Cranial nerves II through XII are grossly intact. Motor and sensory are also intact. Normal speech, volume and content. Symmetrical smile. MUSCULOSKELETAL: Normal extremities with adequate strength and full range of motion. No lower extremity swelling or edema. No calf tenderness. LYMPHATICS: No significant lymphadenopathy is noted PSYCHIATRIC: Normal psychiatric evaluation. Course Vital Signs 12/10/22 12/10/22 13:58 14:29 Temperature 97.8 F Pulse Rate 85 92 Respiratory 18 16 Rate Blood Pressure 131/80 111/77 O2 Sat by Pulse 97 99 Oximetry Medical Decision Making - Medical Decision Making EKG was interpreted by myself EKG shows a sinus rhythm at 95 bpm MS interval 141 QRSs 106 QT interval 07/05/1989 QTC is 391. Patient's EKG shows no ST segment elevation or depression. Patient does have Q waves in leads II, III, and F aVF which were seen her previous EKG. Was pt. sent in by a medical professional or institution (, PA, CORONARY CLINICAL SPECIALIST, urgent care, hospital, or snf...) When possible be specific @ -Patient was sent in by Dr. McPhilimy Did you speak to anyone other than the patient for history (EMS, parent, family, police, friend...)? What history was obtained from this source @ -No Did you review nursing and triage notes (agree or disagree)? Why? @ -I reviewed and agree with nursing and triage notes Were old charts reviewed (outside hosp., previous admission, EMS record, old EKG , old radiological studies, urgent care reports/EKG's, snf records)? Report findings @ -I reviewed old EKGs in old lab work as well as old radiological studies Differential Diagnosis (chest pain, altered mental status, abdominal pain women, abdominal pain men, vaginal bleeding, weakness, fever, dyspnea, syncope, headache, dizziness, GI bleed, back pain, seizure, CVA, palpatations, mental health, musculoskeletal)? @ -Differential Chest Pain: Stable Angina, Unstable Angina, STEMI, NSTEMI Aortic Dissection, Pneumothorax, Musculoskeletal, Esophageal Spasm GERD, Cholecystitis, Pancreatitis, Zoster, this is not meant to be an all-inclusive list. EKG interpreted by me (3pts min.). @ -As above X-rays interpreted by me (1pt min.). @ -Chest x-ray shows no acute abnormality CT interpreted by me (1pt min.). @ -None done U/S interpreted by me (1pt. min.). @ -None done What testing was considered but not performed or refused? (CT, X-rays, U/S, labs)? Why? @ -None What meds were considered but not given or refused? Why? @ -None Did you discuss the management of the patient with other professionals (professionals i.e. , PA, CORONARY CLINICAL SPECIALIST, lab, RT, psych nurse, social science instructor, bell neck hammerer, teacher, consular officer, leather case finisher)? Give summary @ -No Was smoking cessation discussed for >3mins.? @ -No Was critical care preformed (if so, how long)? @ -No Were there social determinants of health that impacted care today? How? (Homelessness, low income, unemployed, alcoholism, drug addiction, transportation, low edu. Level, literacy, decrease access to med. care, residential, rehab)? @ -No Was there de-escalation of care discussed even if they declined (Discuss DNR or withdrawal of care, Hospice)? DNR status @ -No What co-morbidities impacted this encounter? (DM, HTN, Smoking, COPD, CAD, Ca ncer, CVA, ARF, Chemo, Hep., AIDS, mental health diagnosis, sleep apnea, morbid obesity)? @ -None Was patient admitted / discharged? Hospital course, mention meds given and route, prescriptions, significant lab abnormalities, going to OR and other pertinent info. @ -Patient was not having any chest pain in the emergency department. Patient stated it only occurs when he is under stress and he was under stress prior to the chest pain occurring. Patient states the chest pain only lasted 5 seconds Undiagnosed new problem with uncertain prognosis? @ -No Drug Therapy requiring intensive monitoring for toxicity (Heparin, Nitro, Insulin, Cardizem)? @ -No Were any procedures done? @ -No Diagnosis/symptom? @ -Atypical chest pain Acute, or Chronic, or Acute on Chronic? @ -Acute Uncomplicated (without systemic symptoms) or Complicated (systemic symptoms)? @ -Complicated Side effects of treatment? @ -No Exacerbation, Progression, or Severe Exacerbation? @ -No Poses a threat to life or bodily function? How? (Chest pain, USA, [place], pneumonia, PE, COPD, DKA, ARF, appy, cholecystitis, CVA, Diverticulitis, Homicidal, Farheen cidal, threat to staff... and all critical care pts) @ -Noo - Lab Data Result diagrams: 12/10/22 14:24 12/10/22 14:24 Lab Results 12/10/22 12/10/22 12/10/22 Range/Units 14:24 14:24 14:24 WBC 9.7 (3.8-10.6) k/uL RBC 4.05 L (4.30-5.90) m/uL Hgb 14.1 (13.0-17.5) gm/dL Hct 40.0 (39.0-53.0) % MCV 98.6 (80.0-100.0) fL MCH 34.8 (25.0-35.0) pg MCHC 35.3 (31.0-37.0) g/dL RDW 14.0 (11.5-15.5) % Plt Count 210 (150-450) k/uL MPV 7.4 Neutrophils % 71 % Lymphocytes % 21 % Monocytes % 4 % Eosinophils % 2 % Basophils % 0 % Neutrophils # 6.9 (1.3-7.7) k/uL Lymphocytes # 2.1 (1.0-4.8) k/uL Monocytes # 0.4 (0-1.0) k/uL Eosinophils # 0.2 (0-0.7) k/uL Basophils # 0.0 (0-0.2) k/uL PT 10.6 (9.0-12.0) sec INR 1.0 (<1.2) APTT 25.2 (22.0-30.0) sec Sodium 139 (137-145) mmol/L Potassium 3.9 (3.5-5.1) mmol/L Chloride 107 (98-107) mmol/L Carbon Dioxide 22 (22-30) mmol/L Anion Gap 10 mmol/L BUN 13 (9-20) mg/dL Creatinine 0.65 L (0.66-1.25) mg/dL Est GFR (CKD-EPI)AfAm >90 (>60 ml/min/1.73 sqM) Est GFR (CKD-EPI)NonAf >90 (>60 ml/min/1.73 sqM) Glucose 101 H (74-99) mg/dL Calcium 9.4 (8.4-10.2) mg/dL Magnesium 1.9 (1.6-2.3) mg/dL Total Bilirubin 0.4 (0.2-1.3) mg/dL AST 22 (17-59) U/L ALT 24 (4-49) U/L Alkaline Phosphatase 70 (38-126) U/L Troponin I (0.000-0.034) ng/mL Total Protein 6.9 (6.3-8.2) g/dL Albumin 4.0 (3.5-5.0) g/dL 12/10/22 Range/Units 14:24 WBC (3.8-10.6) k/uL RBC (4.30-5.90) m/uL Hgb (13.0-17.5) gm/dL Hct (39.0-53.0) % MCV (80.0-100.0) fL MCH (25.0-35.0) pg MCHC (31.0-37.0) g/dL RDW (11.5-15.5) % Plt Count (150-450) k/uL MPV Neutrophils % % Lymphocytes % % Monocytes % % Eosinophils % % Basophils % % Neutrophils # (1.3-7.7) k/uL Lymphocytes # (1.0-4.8) k/uL Monocytes # (0-1.0) k/uL Eosinophils # (0-0.7) k/uL Basophils # (0-0.2) k/uL PT (9.0-12.0) sec INR (<1.2) APTT (22.0-30.0) sec Sodium (137-145) mmol/L Potassium (3.5-5.1) mmol/L Chloride (98-107) mmol/L Carbon Dioxide (22-30) mmol/L Anion Gap mmol/L BUN (9-20) mg/dL Creatinine (0.66-1.25) mg/dL Est GFR (CKD-EPI)AfAm (>60 ml/min/1.73 sqM) Est GFR (CKD-EPI)NonAf (>60 ml/min/1.73 sqM) Glucose (74-99) mg/dL Calcium (8.4-10.2) mg/dL Magnesium (1.6-2.3) mg/dL Total Bilirubin (0.2-1.3) mg/dL AST (17-59) U/L ALT (4-49) U/L Alkaline Phosphatase (38-126) U/L Troponin I <0.012 (0.000-0.034) ng/mL Total Protein (6.3-8.2) g/dL Albumin (3.5-5.0) g/dL Disposition Clinical Impression: Atypical chest pain, Anxiety Disposition: HOME SELF-CARE Condition: Good Instructions (If sedation given, give patient instructions): Chest Pain (ED) Is patient prescribed a controlled substance at d/c from ED?: No Referrals: Louie Stockton MD [Primary Care Provider] - 1-2 days Time of Disposition: 15:14
[2022-12-10 14:34] LABS: Basophils % (A) 0 %; Eosinophils # (A) 0.2 k/uL (0-0.7); Eosinophils % (A) 2 %; HGB 14.1 gm/dL (13.0-17.5); Lymphocytes # (A) 2.1 k/uL (1.0-4.8); Lymphocytes % (A) 21 %; MCH 34.8 pg (25.0-35.0); MCHC 35.3 g/dL (31.0-37.0); MCV 98.6 fL (80.0-100.0); Mean Platelet Volume 7.4; Monocytes # (A) 0.4 k/uL (0-1.0); Monocytes % (A) 4 %; Neutrophils # (A) 6.9 k/uL (1.3-7.7); Neutrophils % (A) 71 %; Platelet Count 210 k/uL (150-450); RBC 4.05 m/uL (4.30-5.90); WBC 9.7 k/uL (3.8-10.6)
[2022-12-10 14:42] LABS: Partial Thromboplastin Time 25.2 sec (22.0-30.0); Prothrombin Time 10.6 sec (9.0-12.0)
--- NOTE | 2022-12-10 14:42 | XR ---
EXAMINATION TYPE: XR chest 2V DATE OF EXAM: 12/10/2022 COMPARISON: 02/18/2017 HISTORY: Chest pain TECHNIQUE: Frontal and lateral views of the chest are obtained. FINDINGS: There is no focal air space opacity. No evidence for pneumothorax. No pleural effusion. The cardiac silhouette size is within normal limits. The osseous structures are grossly intact. IMPRESSION: 1. No acute cardiopulmonary process.
[2022-12-10 14:46] LABS: ALT 24 U/L (4-49); AST 22 U/L (17-59); African American GFR (CKD) >90 (>60 ml/min/1.73 sqM); Alkaline Phosphatase 70 U/L (38-126); Anion Gap 10 mmol/L; Blood Urea Nitrogen 13 mg/dL (9-20); Calcium 9.4 mg/dL (8.4-10.2); Carbon Dioxide 22 mmol/L (22-30); Chloride 107 mmol/L (98-107); Glucose 101 mg/dL (74-99); Magnesium 1.9 mg/dL (1.6-2.3); Non-African American GFR(CKD) >90 (>60 ml/min/1.73 sqM); Potassium 3.9 mmol/L (3.5-5.1); Sodium 139 mmol/L (137-145); Total Bilirubin 0.4 mg/dL (0.2-1.3); Total Protein 6.9 g/dL (6.3-8.2)
[2022-12-10 15:37] VITALS: BP 101/66; PULSE 90; RESP 18
== END 2022-12-10 15:37 | disposition home or self-care (01) ==
LOC: EC 13:56 → EEVIPCON 13:56 → EC 15:37
DX: F41.9 Anxiety disorder, unspecified (principal); R07.89 Other chest pain; Z79.899 Other long term (current) drug therapy
CPT/HCPCS: 36415; 71046; 80053; 83735; 84484; 85025; 85610; 85730; 93005; 99285

== ENCOUNTER 2023-04-22 07:16 | Emergency (ER) | payer MEDICARE, OTHER ==
[2023-04-22 07:53] VITALS: RESP 18
--- NOTE | 2023-04-22 08:09 | ED ---
General Adult HPI - General Chief complaint: Upper Respiratory Infection Stated complaint: ILENE Time Seen by Provider: 04/22/23 07:31 Source: patient, RN notes reviewed Mode of arrival: ambulatory Limitations: no limitations - History of Present Illness Initial comments: 37-year-old male with no significant past medical history presents the emergency department with a chief complaint of shortness of breath. Patient reports shortness of breath that he describes as chest tightness every time he takes a breath in. He reports this is been constant over the last 2 days. He experiences at rest and with exertion. Denies any known fevers, chills, cough, congestion, headache fever, chest pain or palpitations. Hhe denies history of asthma or COPD. He is not taking any medications for his symptoms. - Related Data Home Medications Medication Instructions Recorded Confirmed Clindamycin Phosphate [Cleocin T 1 applic TOPICAL BID 02/20/22 02/20/22 1%] Nugenix Free Testosterone Booster 3 cap PO DAILY 02/20/22 02/20/22 Nugenix Multivitamin 2 tab PO DAILY 02/20/22 02/20/22 Nugenix Pm 4 cap PO HS 02/20/22 02/20/22 Nugenix Ultimate 4 tab PO DAILY 02/20/22 02/20/22 Nugenix Vitality Booster 3 cap PO DAILY 02/20/22 02/20/22 Nystatin [Nystop] 1 applic TOPICAL BID 02/20/22 02/20/22 Omeprazole 40 mg PO DAILY 02/20/22 02/20/22 Semaglutide [Ozempic] See Taper SQ WE 02/20/22 02/20/22 Vitamin D3(Unknown) 1 tab PO DAILY 02/20/22 02/20/22 metFORMIN HCL 1,000 mg PO BID 02/20/22 02/20/22 Previous Rx's Medication Instructions Recorded Ferrous Sulfate [Iron (65 MG 325 mg PO W/LUNCH 30 Days tab 02/25/22 Elemental)] Allergies Allergy/AdvReac Type Severity Reaction Status Date / Time No Known Allergies Allergy Verified 04/22/23 07:23 Review of Systems ROS Statement: Those systems with pertinent positive or pertinent negative responses have been documented in the HPI. ROS Other: All systems not noted in ROS Statement are negative. Past Medical History Past Medical History: No Reported History, Diabetes Mellitus Additional Past Medical History / Comment(s): neuropathy History of Any Multi-Drug Resistant Organisms: None Reported Past Surgical History: Orthopedic Surgery, Tonsillectomy Additional Past Surgical History / Comment(s): left ankle Past Psychological History: Depression Smoking Status: Never smoker Past Alcohol Use History: Rare Past Drug Use History: None Reported - Past Family History Mother Family Medical History: Hearing Disorder / Deafness Father Family Medical History: Cancer General Exam - General Exam Comments Initial Comments: General: Alert, in no acute distress Head: atraumatic normocephalic. Eyes PERRL, EOMI intact, mucous membranes moist Respiratory: Lungs clear to auscultation bilaterally Cardiovascular: Heart rate regular and rhythm Abdominal: Soft without guarding or rebound Extremities: Normal inspection with full range of motion and normal capillary refill Neuroogic: alert and oriented 3, CN II-XII intact, able to ambulate with steady gait Skin: warm dry and intact with normal color Limitations: no limitations Course Vital Signs 04/22/23 04/22/23 04/22/23 07:21 07:35 10:42 Temperature 98.9 F 97.9 F Pulse Rate 95 76 Respiratory 20 18 18 Rate Blood Pressure 117/78 116/76 O2 Sat by Pulse 98 97 Oximetry - Reevaluation(s) Reevaluation #1: 04/22/23 10:36 Reevaluated. Patient reports symptomatically improvement status post medications. He reports that he will have chest pain when he is anxious. He reports that he is anxious due to his mother. Switched to different nursing homes He is agreeable with the plan for discharge home. EKG Findings - EKG Comments: EKG Findings:: I interpreted the following: EKG performed at 10:30 rate 83 bpm normal sinus rhythm GA interval 141, QRS dictation 104, QT/QTc 350/390 Medical Decision Making - Medical Decision Making Was pt. sent in by a medical professional or institution (, PA, FARM WORKER, urgent care, hospital, or prison...) When possible be specific @ -[No] Did you speak to anyone other than the patient for history (EMS, parent, family, police, friend...)? What history was obtained from this source @ -[No] Did you review nursing and triage notes (agree or disagree)? Why? @ -[I reviewed and agree with nursing and triage notes] Were old charts reviewed (outside hosp., previous admission, EMS record, old EKG, old radiological studies, urgent care reports/EKG's, prison records)? Report findings @ -Yes Differential Diagnosis (chest pain, altered mental status, abdominal pain women, abdominal pain men, vaginal bleeding, weakness, fever, dyspnea, syncope, headache, dizziness, GI bleed, back pain, seizure, CVA, palpatations, mental health, musculoskeletal)? @ -[not applicable] EKG interpreted by me (3pts min.). @ -[As above] X-rays interpreted by me (1pt min.). @ Does Not reveal any focal consolidation or cardiomegaly CT interpreted by me (1pt min.). @ -[None done] U/S interpreted by me (1pt. min.). @ -[None done] What testing was considered but not performed or refused? (CT, X-rays, U/S, labs)? Why? @ -[None] What meds were considered but not given or refused? Why? @ -[None] Did you discuss the management of the patient with other professionals (professionals i.e. , PA, FARM WORKER, lab, RT, psych nurse, elementary school social worker, obedience trainer, teacher, guest services officer, special education case manager)? Give summary @ -[No] Was smoking cessation discussed for >3mins.? @ -[No] Was critical care preformed (if so, how long)? @ -[No] Were there social determinants of health that impacted care today? How? (Homelessness, low income, unemployed, alcoholism, drug addiction, transportation, low edu. Level, literacy, decrease access to med. care, senior care, rehab)? @ -[No] Was there de-escalation of care discussed even if they declined (Discuss DNR or withdrawal of care, Hospice)? DNR status @ -[No] What co-morbidities impacted this encounter? (DM, HTN, Smoking, COPD, CAD, Cancer, CVA, ARF, Chemo, Hep., AIDS, mental health diagnosis, sleep apnea, morbid obesity)? @ -[None] Was patient admitted / discharged? Hospital course, mention meds given and route, prescriptions, significant lab abnormalities, going to OR and other pertinent info. @ -Discharged. This is a pleasant 37-year-old male who presents the emergency department with a chief complaint of chest pain. Patient has a history and physical exam performed. Vital signs are stable. Heart rate regular rate and rhythm, sensation bilaterally abdomen soft nontender patient had chest x-ray, EKG and vital signs which were unremarkable. He was provided Toradol with synthetic improvement. Verbalizing no longer feels anxious and feels any chest tightness. Patient's heart scores 1. I do not believe his symptoms are cardiac in nature. I discussed the results in detail with the patient verbalized understanding and questions were addressed. His agreeable with the plan for discharge home. case was discussed with Dr. miller, ED attending who presents the Undiagnosed new problem with uncertain prognosis? @ -[No] Drug Therapy requiring intensive monitoring for toxicity (Heparin, Nitro, Insulin, Cardizem)? @ -[No] Were any procedures done? @ -[No] Diagnosis/symptom? @ -Chest Pain - Anxiety Acute, or Chronic, or Acute on Chronic? @ -Acute Uncomplicated (without systemic symptoms) or Complicated (systemic symptoms)? @ -Uncomplicated Side effects of treatment? @ -[No] Exacerbation, Progression, or Severe Exacerbation? @ -[No] Poses a threat to life or bodily function? How? (Chest pain, [place], [place], pneumonia, PE, COPD, DKA, ARF, appy, cholecystitis, CVA, Diverticulitis, Homicidal, Suicidal, threat to staff... and all critical care pts) @ -Low likelihood - Lab Data Lab Results 04/22/23 Range/Units 07:33 Influenza Type A (PCR) Not Detected (Not Detectd) Influenza Type B (PCR) Not Detected (Not Detectd) RSV (PCR) Not Detected (Not Detectd) SARS-CoV-2 (PCR) Not Detected (Not Detectd) Disposition Clinical Impression: Chest pain Disposition: HOME SELF-CARE Condition: Stable Instructions (If sedation given, give patient instructions): Chest Pain (ED) Additional Instructions: Monitor symptoms closely Return to the nearest emergency department if worsening pain, shortness of breath develop Is patient prescribed a controlled substance at d/c from ED?: No Referrals: Louie Stockton MD [Primary Care Provider] - 1-2 days Time of Disposition: 10:36
--- NOTE | 2023-04-22 08:56 | XR ---
EXAMINATION TYPE: XR chest 2V DATE OF EXAM: 04/22/2023 COMPARISON: None HISTORY: 37-year-old male with cough TECHNIQUE: PA and lateral views FINDINGS: The cardiomediastinal silhouette, aorta, and pulmonary vasculature are within normal limits. Lungs an d pleural spaces are clear. IMPRESSION: No acute cardiopulmonary process.
[2023-04-22] MEDS ORDERED: KETOROLAC 15 MG/ML 1 ML VIAL IM STA (09:07)
[2023-04-22 10:49] VITALS: BP 116/76; PULSE 76; TEMP 97.9
== END 2023-04-22 10:44 | disposition home or self-care (01) ==
LOC: EC 07:16
DX: R07.89 Other chest pain (principal); E11.40 Type 2 diabetes mellitus with diabetic neuropathy, unspecified; F32.A Depression, unspecified; Z20.822 Contact with and (suspected) exposure to COVID-19; Z79.84 Long term (current) use of oral hypoglycemic drugs; Z79.899 Other long term (current) drug therapy
CPT/HCPCS: 93005; 87636; 71046; 99285; 96372; J1885

== ENCOUNTER 2023-05-02 08:08 | Emergency (ER) | payer MEDICARE, OTHER ==
[2023-05-02 08:41] VITALS: RESP 18
--- NOTE | 2023-05-02 09:01 | ED ---
General Adult HPI - General Chief complaint: Extremity Injury, Upper Stated complaint: R arm pain Time Seen by Provider: 05/02/23 08:09 Source: patient Mode of arrival: ambulatory - History of Present Illness Initial comments: Dictation was produced using ncyclo dictation software. please excuse any grammatical, word or spelling errors. Chief Complaint: 37-year-old male presents with pain and bruising to the right forearm History of Present Illness: 37-year-old male presents emergency department for pain and bruising of the right forearm. Patient states that he was lifting tires. He is forearm to help lift a tires. Complains of some pain. He noticed bruising to the area. Denies any loss of function or sensation in his right hand. The ROS documented in this emergency department record has been reviewed and confirmed by me. Those systems with pertinent positive or negative responses have been documented in the HPI. All other systems are other negative and/or noncontributory. - Related Data Home Medications Medication Instructions Recorded Confirmed Clindamycin Phosphate [Cleocin T 1 applic TOPICAL BID 02/20/22 02/20/22 1%] Nugenix Free Testosterone Booster 3 cap PO DAILY 02/20/22 02/20/22 Nugenix Multivitamin 2 tab PO DAILY 02/20/22 02/20/22 Nugenix Pm 4 cap PO HS 02/20/22 02/20/22 Nugenix Ultimate 4 tab PO DAILY 02/20/22 02/20/22 Nugenix Vitality Booster 3 cap PO DAILY 02/20/22 02/20/22 Nystatin [Nystop] 1 applic TOPICAL BID 02/20/22 02/20/22 Omeprazole 40 mg PO DAILY 02/20/22 02/20/22 Semaglutide [Ozempic] See Taper SQ WE 02/20/22 02/20/22 Vitamin D3(Unknown) 1 tab PO DAILY 02/20/22 02/20/22 metFORMIN HCL 1,000 mg PO BID 02/20/22 02/20/22 Previous Rx's Medication Instructions Recorded Ferrous Sulfate [Iron (65 MG 325 mg PO W/LUNCH 30 Days tab 02/25/22 Elemental)] Allergies Allergy/AdvReac Type Severity Reaction Status Date / Time No Known Allergies Allergy Verified 05/02/23 08:22 Review of Systems ROS Statement: Those systems with pertinent positive or pertinent negative responses have been documented in the HPI. ROS Other: All systems not noted in ROS Statement are negative. Past Medical History Past Medical History: Diabetes Mellitus Additional Past Medical History / Comment(s): neuropathy History of Any Multi-Drug Resistant Organisms: None Reported Past Surgical History: Orthopedic Surgery, Tonsillectomy Additional Past Surgical History / Comment(s): left ankle Past Psychological History: Depression Smoking Status: Never smoker Past Alcohol Use History: Rare Past Drug Use History: None Reported - Past Family History Mother Family Medical History: Hearing Disorder / Deafness Father Family Medical History: Cancer General Exam - General Exam Comments Initial Comments: Visual Physical Exam Vital signs reviewed General: Well-appearing, nontoxic, no acute distress. Head: Normocephalic, atraumatic Eyes: PERRLA, EOMI ENT: Airway patent Chest: Nonlabored breathing Skin: No visual rash, normal skin tone Neuro: Alert and oriented 3 Musculoskeletal: No gross abnormalities Right arm: Bruising to the anterior forearm with palpatory tenderness over the ecchymoses Course Vital Signs 05/02/23 08:19 Temperature 98.3 F Pulse Rate 97 Respiratory 18 Rate Blood Pressure 115/76 O2 Sat by Pulse 98 Oximetry Medical Decision Making - Medical Decision Making Was pt. sent in by a medical professional or institution (FRENANDO Nelson, SCREW MACHINE SET UP OPERATOR TOOL, urgent care, hospital, or retirement...) When possible be specific @ -No Did you speak to anyone other than the patient for history (EMS, parent, family, police, friend...)? What history was obtained from this source @ -No Did you review nursing and triage notes (agree or disagree)? Why? @ -I reviewed and agree with nursing and triage notes Were old charts reviewed (outside hosp., previous admission, EMS record, old EKG, old radiological studies, urgent care reports/EKG's, retirement records)? Report findings @ -No old charts were reviewed Differential Diagnosis (chest pain, altered mental status, abdominal pain women, abdominal pain men, vaginal bleeding, musculoskeletal, weakness, fever, dyspnea, syncope, headache, dizziness, GI bleed, back pain, seizure, CVA, palpatations, mental health)? @ -not applicable EKG interpreted by me (3pts min.). @ -None done X-rays interpreted by me (1pt min.). @ -X-ray right forearm shows no acute processes CT interpreted by me (1pt min.). @ -None done U/S interpreted by me (1pt. min.). @ -None done What testing was considered but not performed or refused? (CT, X-rays, U/S, labs)? Why? @ -None What meds were considered but not given or refused? Why? @ -None Did you discuss the management of the patient with other professionals (professionals i.e. Dr., PA, SCREW MACHINE SET UP OPERATOR TOOL, lab, RT, psych nurse, case management social worker, plant equipment engineer, teacher, event security officer, family caseworker)? Give summary @ -No Was smoking cessation discussed for >3mins.? @ -No Was critical care preformed (if so, how long)? @ -No Were there social determinants of health that impacted care today? How? (Homelessness, low income, unemployed, alcoholism, drug addiction, trans portation, low edu. Level, literacy, decrease access to med. care, senior care, rehab)? @ -No Was there de-escalation of care discussed even if they declined (Discuss DNR or withdrawal of care, Hospice)? DNR status @ -No What co-morbidities impacted this encounter? (DM, HTN, Smoking, COPD, CAD, Cancer, CVA, ARF, Chemo, Hep., AIDS, mental health diagnosis, sleep apnea, morbid obesity)? @ -None Was patient admitted / discharged? Hospital course, mention meds given and route, prescriptions, significant lab abnormalities, going to OR and other pertinent info. @ -37-year-old male presents emergency department for right forearm pain after lifting tires. He has bruising to the right forearm area. Vital signs are stable. Patient well-appearing. X-rays unremarkable. Patient discharged. Undiagnosed new problem with uncertain prognosis? @ -No Drug Therapy requiring intensive monitoring for toxicity (Heparin, Nitro, Insulin, Cardizem)? @ -No Were any procedures done? @ -No Diagnosis/symptom? Acute, or Chronic, or Acute on Chronic? Uncomplicated (without systemic symptoms) or Complicated (systemic symptoms)? @ -Arm contusion Side effects of treatment? @ -No Exacerbation, Progression, or Severe Exacerbation? @ -No Poses a threat to life or bodily function? How? (Chest pain, [place], [place], pneumonia, PE, COPD, DKA, ARF, appy, cholecystitis, CVA, Diverticulitis, Homicidal, Suicidal, threat to staff... and all critical care pts) @ -No Disposition Clinical Impression: Ecchymosis of forearm Disposition: HOME SELF-CARE Condition: Good Instructions (If sedation given, give patient instructions): Contusion in Adults (ED) Is patient prescribed a controlled substance at d/c from ED?: No Referrals: Louie Stockton MD [Primary Care Provider] - 1-2 days Time of Disposition: 09:23
--- NOTE | 2023-05-02 09:16 | XR ---
EXAMINATION TYPE: XR forearm RT DATE OF EXAM: 05/02/2023 COMPARISON: NONE HISTORY: 37-year-old male bruising and swelling, forearm pain TECHNIQUE: 2 views FINDINGS: There is mild volar sided soft tissue swelling noted. No retained radiopaque foreign body s een. No periostitis or osteomyelitis or underlying acute fracture. IMPRESSION: Some volar sided soft tissue swelling along the forearm. No underlying retained radiopaqu e foreign body or acute osseous abnormality seen.
[2023-05-02 09:55] VITALS: BP 120/76; PULSE 89; TEMP 98.1
== END 2023-05-02 09:39 | disposition home or self-care (01) ==
LOC: EEVIPCON 08:08 → EC 08:08
DX: S50.11XA Contusion of right forearm, initial encounter (principal); E11.40 Type 2 diabetes mellitus with diabetic neuropathy, unspecified; Z79.84 Long term (current) use of oral hypoglycemic drugs; X50.0XXA Overexertion from strenuous movement or load, initial encounter
CPT/HCPCS: 99283

== ENCOUNTER 2023-06-06 13:53 | Emergency (ER) | payer MEDICARE, OTHER ==
--- NOTE | 2023-06-06 14:46 | ED ---
Animal Bite HPI - General Chief Complaint: Animal Bite Stated Complaint: Cat bite finger/chest Time Seen by Provider: 06/06/23 14:27 Source: patient, RN notes reviewed Mode of arrival: ambulatory Limitations: no limitations - History of Present Illness Initial Comments: This is a 37-year-old male who presents to the emergency department for a cat bite. States that he was bitten by a stray cat earlier today in the chest and arms. Denies any substantial pain associated with this. Unsure when his last tetanus vaccine was. MD Complaint: animal bite - Related Data Home Medications Medication Instructions Recorded Confirmed Clindamycin Phosphate [Cleocin T 1 applic TOPICAL BID 02/20/22 02/20/22 1%] Nugenix Free Testosterone Booster 3 cap PO DAILY 02/20/22 02/20/22 Nugenix Multivitamin 2 tab PO DAILY 02/20/22 02/20/22 Nugenix Pm 4 cap PO HS 02/20/22 02/20/22 Nugenix Ultimate 4 tab PO DAILY 02/20/22 02/20/22 Nugenix Vitality Booster 3 cap PO DAILY 02/20/22 02/20/22 Nystatin [Nystop] 1 applic TOPICAL BID 02/20/22 02/20/22 Omeprazole 40 mg PO DAILY 02/20/22 02/20/22 Semaglutide [Ozempic] See Taper SQ WE 02/20/22 02/20/22 Vitamin D3(Unknown) 1 tab PO DAILY 02/20/22 02/20/22 metFORMIN HCL 1,000 mg PO BID 02/20/22 02/20/22 Previous Rx's Medication Instructions Recorded Ferrous Sulfate [Iron (65 MG 325 mg PO W/LUNCH 30 Days tab 02/25/22 Elemental)] Amoxic-Pot Clav 875-125Mg 1 tab PO BID 10 Days #20 tab 06/06/23 [Augmentin 875-125] Allergies Allergy/AdvReac Type Severity Reaction Status Date / Time No Known Allergies Allergy Verified 06/06/23 14:25 Review of Systems ROS Statement: Those systems with pertinent positive or pertinent negative responses have been documented in the HPI. ROS Other: All systems not noted in ROS Statement are negative. Past Medical History Past Medical History: No Reported History, Diabetes Mellitus Additional Past Medical History / Comment(s): neuropathy History of Any Multi-Drug Resistant Organisms: None Reported Past Surgical History: Orthopedic Surgery, Tonsillectomy Additional Past Surgical History / Comment(s): left ankle Past Psychological History: Depression Smoking Status: Never smoker Past Alcohol Use History: Rare Past Drug Use History: None Reported - Past Family History Mother Family Medical History: Hearing Disorder / Deafness Father Family Medical History: Cancer General Exam Limitations: no limitations General appearance: alert, in no apparent distress Head exam: Present: atraumatic, normocephalic, normal inspection Respiratory exam: Present: normal lung sounds bilaterally. Absent: respiratory distress, wheezes, rales, rhonchi, stridor Cardiovascular Exam: Present: regular rate, normal rhythm, normal heart sounds. Absent: systolic murmur, diastolic murmur, rubs, gallop, clicks Neurological exam: Present: alert, oriented X3, CN II-XII intact Psychiatric exam: Present: normal affect, normal mood Skin exam: Present: other (Superficial bite wounds to the bilateral forearms and right chest. No active bleeding. No deep puncture wounds.) Course Vital Signs 06/06/23 06/06/23 14:23 15:49 Temperature 98.1 F 98.2 F Pulse Rate 89 90 Respiratory 18 18 Rate Blood Pressure 139/86 123/83 O2 Sat by Pulse 99 97 Oximetry Medical Decision Making - Medical Decision Making This is a 37-year-old male who presents to the emergency department for a cat bite. Was pt. sent in by a medical professional or institution? @ -No Did you speak to anyone other than the patient for history? @ -No Did you review nursing and triage notes? @ -Yes, and I agree, it is accurate with regards to the patient's symptoms. Were old charts reviewed? @ -No Differential Diagnosis? @ -Differential Cat Bite: Animal bite, cellulitis, injury, dermatitis, this is not meant to be an all- inclusive list. EKG interpreted by me (3pts min.)? @ -Not obtained X-rays interpreted by me (1pt min.)? @ -Not obtained CT interpreted by me (1pt min.)? @ -Not obtained U/S interpreted by me (1pt. min.)? @ -Not obtained What testing was considered but not performed? (CT, X-rays, U/S, labs)? Why? @ -None What meds were considered but not given? Why? @ -None Did you discuss the management of the patient with other professionals? @ -No Did you reconcile home meds? @ -No Was smoking cessation discussed for >3mins.? @ -No Was critical care preformed (if so, how long)? @ -No Were there social determinants of health that impacted care today? How? (Homelessness, low income, unemployed, alcoholism, drug addiction, transportati on, low edu. Level, literacy, decrease access to med. care, nursing home, rehab)? @ -No Was there de-escalation of care discussed even if they declined? (Discuss DNR or withdrawal of care, Hospice)? @ -No What co-morbidities impacted this encounter? (DM, HTN, Smoking, COPD, CAD, Cancer, CVA, Hep., AIDS, mental health diagnosis, sleep apnea, morbid obesity)? @ -None Was patient admitted / discharged? @ -Discharged. Physical examination demonstrates several superficial cat bites. There are no deep wounds that required repair. Patient's tetanus status was updated. An initial dose of Augmentin was administered in the emergency department. Advised the patient that because this was a stray cat, we should proceed with the rabies vaccination, and the patient is in agreement with this. First rabies vaccine and rabies immunoglobulin administered in the emergency department. He was given a prescription to have the rabies vaccine repeated on days 3, 7, and 14. Rx for ten-day course of Augmentin provided with dosing instructions reviewed. Advised ibuprofen and Tylenol as needed for pain relief. Undiagnosed new problem with uncertain prognosis? @ -None Drug Therapy requiring intensive monitoring for toxicity (Heparin, Nitro, Insulin, Cardizem)? @ -None Were any procedures done? @ -None Diagnosis/symptom? @ -Cat bite Acute, or Chronic, or Acute on Chronic? @ -Acute Uncomplicated (without systemic symptoms) or Complicated (systemic symptoms)? @ -Uncomplicated Side effects of treatment? @ -None Exacerbation, Progression, or Severe Exacerbation] @ -Not applicable Poses a threat to life or bodily function? @ -Unlikely, unless this were to lead to infection. Return precautions reviewed in depth, the patient is instructed to return to the emergency department with any new, worsening, or concerning symptoms. Patient verbalized understanding. This case was discussed in detail with the attending ED physician, Dr. Wilkins Presentation, findings, and treatment plan discussed in detail as well. Disposition Clinical Impression: Cat bite Disposition: HOME SELF-CARE Instructions (If sedation given, give patient instructions): Animal Bite (ED) Additional Instructions: Return to the emergency department with any new, worsening, or concerning symptoms. Take the antibiotic as prescribed for 10 days. You will need to have the rabies vaccine repeated on days 3 (06/09/23), 7 (06/13/23) and 14 (06/20/23). Alternate with ibuprofen and Tylenol as needed for pain relief. Follow up with your primary care provider in 1-2 days. Prescriptions: Amoxic-Pot Clav 875-125Mg [Augmentin 875-125] 1 tab PO BID 10 Days #20 tab Is patient prescribed a controlled substance at d/c from ED?: No Referrals: Louie Stockton MD [Primary Care Provider] - 1-2 days Time of Disposition: 14:45
[2023-06-06 15:07] VITALS: RESP 18
[2023-06-06] MEDS: AMOXIC-POT CLAV 875-125MG 1 EACH TAB PO STA (15:25)
[2023-06-06] MEDS: DIPH,PERTUS(ACELL)TETVAC-LF 0.5 ML VIAL IM ONE (15:26)
[2023-06-06] MEDS: RABIES VACCINE (PCEC) 2.5 UNIT KIT IM ONE (15:27)
[2023-06-06] MEDS: RABIES IMM GLOB 300 UNIT/2 ML VIAL IM ONE (15:29)
[2023-06-06 16:04] VITALS: BP 123/83; PULSE 90; TEMP 98.2
== END 2023-06-06 16:23 | disposition home or self-care (01) ==
LOC: EC 13:53
DX: S21.159A Open bite of unspecified front wall of thorax without penetration into thoracic cavity, initial encounter (principal); E11.9 Type 2 diabetes mellitus without complications; Z20.3 Contact with and (suspected) exposure to rabies; Z23 Encounter for immunization; Z86.59 Personal history of other mental and behavioral disorders; Z79.84 Long term (current) use of oral hypoglycemic drugs; Z20.822 Contact with and (suspected) exposure to COVID-19; W55.01XA Bitten by cat, initial encounter
CPT/HCPCS: 87635; 90377; 90471; 90472; 90675; 90715; 96372; 99283

== ENCOUNTER 2023-07-05 18:30 | Inpatient (IN) | payer MEDICARE, MEDICAID ==
--- NOTE | 2023-07-05 19:12 | ED ---
Psych HPI - General Source: patient, RN notes reviewed Mode of arrival: ambulatory <Sherley Salomon - Last Filed: 07/05/23 19:11> - General Source: patient, RN notes reviewed, old records reviewed <Mohan Singer - Last Filed: 07/09/23 05:58> - General Chief Complaint: Psychiatric Symptoms Stated Complaint: Mental health Time Seen by Provider: 07/05/23 19:11 - History of Present Illness Initial Comments: Patient is a 37-year-old male presented to ER with chief complaint of mental health evaluation. Patient states he has been taking care of his mother who is bedbound and he has had thoughts of hurting her. Denies any plan. Denies any SI or hallucinations. (Sherley Salomon) Patient is a 37-year-old male who presents for psychiatric evaluation. Patient's mother is bedbound and was brought in as he may have abandoned her and has been having thoughts of going to hurting her. Denies any specific plans or intents. Denies suicidal ideations, plans, or attempts. Denies hallucinations. Has no other acute complaints at this time. Does follow-up with a head sawyer automatic. Has a history of diabetes. Presents for further evaluation at this time. Previously was on Ozempic but currently states he is no longer on it. (Mohan Singer) - Related Data Home Medications Medication Instructions Recorded Confirmed Omeprazole 40 mg PO DAILY PRN 02/20/22 07/06/23 Ibuprofen [Motrin] 800 mg PO Q6H PRN 07/06/23 07/06/23 Allergies Allergy/AdvReac Type Severity Reaction Status Date / Time No Known Allergies Allergy Verified 07/06/23 15:56 Review of Systems ROS Other: All systems not noted in ROS Statement are negative. <Sherley Salomon - Last Filed: 07/05/23 19:11> ROS Other: All systems not noted in ROS Statement are negative. <Mohan Singer - Last Filed: 07/09/23 05:58> ROS Statement: Those systems with pertinent positive or pertinent negative responses have been documented in the HPI. Review of Systems: CONST: Denies fever EYES: Denies blurry vision ENT: Denies nasal congestion C/V: Denies Chest pain RESP: Denies shortness of breath GI: Denies abdominal pain : Denies dysuria SKIN: Denies rash. MSK: Denies joint pain. NEURO: Denies headache (Mohan Singer) Past Medical History Past Medical History: No Reported History, Diabetes Mellitus Additional Past Medical History / Comment(s): neuropathy History of Any Multi-Drug Resistant Organisms: None Reported Past Surgical History: Orthopedic Surgery, Tonsillectomy Additional Past Surgical History / Comment(s): left ankle Past Psychological History: Depression Smoking Status: Never smoker - Past Family History Mother Family Medical History: Hearing Disorder / Deafness Father Family Medical History: Cancer <Sherley Salomon - Last Filed: 07/05/23 19:11> General Exam Limitations: no limitations <Sherley Salomon - Last Filed: 07/05/23 19:11> <Mohan Singer - Last Filed: 07/09/23 05:58> - General Exam Comments Initial Comments: Visual Physical Exam Vital signs reviewed General: Well-appearing, nontoxic, no acute distress. Head: Normocephalic, atraumatic Eyes: PERRLA, EOMI ENT: Airway patent Chest: Nonlabored breathing Skin: No visual rash, normal skin tone Neuro: Alert and oriented 3 Musculoskeletal: No gross abnormalities (Sherley Salomon) General: Appears in no acute distress. HEAD: Normal with no signs of head trauma. EYES: EOMI. ENT: Hearing grossly intact, normal oropharynx. RESPIRATORY: Clear breath sounds bilaterally. No wheezes, rales, or rhonchi. C/V: Regular rate and rhythm. S1 and S2 auscultated, peripheral pulses 2+ and intact throughout ABD: Abd is soft, nontender, nondistended EXT: no obvious deformity SKIN: No rashes or lesions observed on exposed skin. NEURO: Alert and oriented x 4. (Mohan Singer) Course Vital Signs 07/05/23 07/06/23 07/06/23 18:43 00:38 07:54 Temperature 98 F 97.8 F Pulse Rate 85 96 78 Respiratory 16 20 18 Rate Blood Pressure 160/80 133/90 120/74 O2 Sat by Pulse 99 99 99 Oximetry 07/06/23 12:22 Temperature Pulse Rate 87 Respiratory 18 Rate Blood Pressure 128/75 O2 Sat by Pulse 98 Oximetry Medical Decision Making <Sherley Salomon - Last Filed: 07/05/23 19:11> - Lab Data Result diagrams: 07/07/23 14:33 07/07/23 14:33 <Mohan Singer - Last Filed: 07/09/23 05:58> - Medical Decision Making I performed the quick note portion of this chart. Electronically signed by Sherley Salomon PA-C (Sherley Salomon) Was pt. sent in by a medical professional or institution (, FERNANDO, STORES CLERK, urgent care, hospital, or residential...) When possible be specific @ -No Did you speak to anyone other than the patient for history (EMS, parent, family, police, friend...)? What history was obtained from this source @ -No Did you review nursing and triage notes (agree or disagree)? Why? @ -I reviewed and agree with nursing and triage notes Were old charts reviewed (outside hosp., previous admission, EMS record, old EKG, old radiological studies, urgent care reports/EKG's, residential records)? Report findings @ -Old charts reviewed Differential Diagnosis (chest pain, altered mental status, abdominal pain women, abdominal pain men, vaginal bleeding, weakness, fever, dyspnea, syncope, headache, dizziness, GI bleed, back pain, seizure, CVA, palpatations, mental health, musculoskeletal)? @ -Differential Mental Health Depression, anxiety, bipolar, psychosis, schizophrenia, borderline personality, situational depression, adjustment disorder, behavioral disorder, brain tumor, malingering, substance abuse, encephalopathy, medication reaction, dementia, hypothyroidism, degenerative neurologic disorder, lupus.... This is not meant to be all-inclusive list EKG interpreted by me (3pts min.). @ -None done X-rays interpreted by me (1pt min.). @ -None done CT interpreted by me (1pt min.). @ -None done U/S interpreted by me (1pt. min.). @ -None done What testing was considered but not performed or refused? (CT, X-rays, U/S, labs)? Why? @ -None What meds were considered but not given or refused? Why? @ -None Did you discuss the management of the patient with other professionals (professionals i.e. FERNANDO Nelson, STORES CLERK, lab, RT, psych nurse, dialysis social worker, inspector and unloader, teacher, supply officer, telephonic nurse case manager)? Give summary @ -EPS notified of the consult Was smoking cessation discussed for >3mins.? @ -No Was critical care preformed (if so, how long)? @ -No Were there social determinants of health that impacted care today? How? (Homelessness, low income, unemployed, alcoholism, drug addiction, transportation, low edu. Level, literacy, decrease access to med. care, skilled nursing, rehab)? @ -No Was there de-escalation of care discussed even if they declined (Discuss DNR or withdrawal of care, Hospice)? DNR status @ -No What co-morbidities impacted this encounter? (DM, HTN, Smoking, COPD, CAD, Cancer, CVA, ARF, Chemo, Hep., AIDS, mental health diagnosis, sleep apnea, morbid obesity)? @ -None Was patient admitted / discharged? Hospital course, mention meds given and route, prescriptions, significant lab abnormalities, going to OR and other pertinent info. @ -Patient presents for thoughts of wanting to hurt his mother who is bedbound. Presents for psychiatric evaluation. Vital signs within acceptable limits. He was placed in green scrubs. Sitter was ordered. BAT is 0. UDS is pending. At this time, patient is medically cleared for evaluation by psychiatry. Disposition pending psychiatric evaluation. EPS notified of the consult. Patient eventually evaluated by EPS after my shift and he does meet inpatient psychiatric criteria. Patient was admitted to the psychiatric unit. Undiagnosed new problem with uncertain prognosis? @ -No Drug Therapy requiring intensive monitoring for toxicity (Heparin, Nitro, Insulin, Cardizem)? @ -No Were any procedures done? @ -No Diagnosis/symptom? @ -Encounter for psychiatric evaluation, homicidal ideations Acute, or Chronic, or Acute on Chronic? @ -Acute Uncomplicated (without systemic symptoms) or Complicated (systemic symptoms)? @ -Complicated Side effects of treatment? @ -None Exacerbation, Progression, or Severe Exacerbation] @ -No Poses a threat to life or bodily function? @ -Yes (Mohan Singer) - Lab Data Lab Results 07/06/23 07/06/23 07/06/23 Range/Units 00:38 01:36 03:11 POC Glucose (mg/dL) 140 H (70-110) mg/dL POC Glu Jawbone Puller ID Bryanna Garcia Urine Color Yellow Urine Appearance Clear (Clear) Urine pH 6.0 (5.0-8.0) Ur Specific Crane 1.028 (1.001-1.035) Urine Protein Negative (Negative) Urine Glucose (UA) Negative (Negative) Urine Ketones Negative (Negative) Urine Blood Negative (Negative) Urine Nitrite Negative (Negative) Urine Bilirubin Negative (Negative) Urine Urobilinogen <2.0 (<2.0) mg/dL Ur Leukocyte Esterase Negative (Negative) Urine Opiates Screen Not Detected (NotDetected) Ur Oxycodone Screen Not Detected (NotDetected) Urine Methadone Screen Not Detected (NotDetected) Ur Barbiturates Screen Not Detected (NotDetected) U Tricyclic Antidepress Not Detected (NotDetected) Ur Phencyclidine Scrn Not Detected (NotDetected) Ur Amphetamines Screen Not Detected (NotDetected) U Methamphetamines Scrn Not Detected (NotDetected) U Benzodiazepines Scrn Not Detected (NotDetected) Urine Cocaine Screen Not Detected (NotDetected) U Marijuana (THC) Screen Not Detected (NotDetected) SARS-CoV-2 (PCR) (Not Detectd) 07/06/23 Range/Units 14:00 POC Glucose (mg/dL) (70-110) mg/dL POC Glu Jawbone Puller ID Urine Color Urine Appearance (Clear) Urine pH (5.0-8.0) Ur Specific Crane (1.001-1.035) Urine Protein (Negative) Urine Glucose (UA) (Negative) Urine Ketones (Negative) Urine Blood (Negative) Urine Nitrite (Negative) Urine Bilirubin (Negative) Urine Urobilinogen (<2.0) mg/dL Ur Leukocyte Esterase (Negative) Urine Opiates Screen (NotDetected) Ur Oxycodone Screen (NotDetected) Urine Methadone Screen (NotDetected) Ur Barbiturates Screen (NotDetected) U Tricyclic Antidepress (NotDetected) Ur Phencyclidine Scrn (NotDetected) Ur Amphetamines Screen (NotDetected) U Methamphetamines Scrn (NotDetected) U Benzodiazepines Scrn (NotDetected) Urine Cocaine Screen (NotDetected) U Marijuana (THC) Screen (NotDetected) SARS-CoV-2 (PCR) Not Detected (Not Detectd) Disposition <Sherley Salomon - Last Filed: 07/05/23 19:11> <Mohan Singer - Last Filed: 07/09/23 05:58> Clinical Impression: Homicidal ideations, Encounter for psychiatric assessment Disposition: ADMITTED IP TO THIS HOSP Condition: Stable
[2023-07-06 01:11] LABS: Amphetamine Screen,Urine Not Detected (NotDetected); Barbiturate Screen,Urine Not Detected (NotDetected); Benzodiazepines Screen,Urine Not Detected (NotDetected); Cocaine Screen,Urine Not Detected (NotDetected); Methadone Screen, Urine Not Detected (NotDetected); Opiate Screen,Urine Not Detected (NotDetected); Oxycodone Screen, Urine Not Detected (NotDetected); Phencyclidine Screen,Urine Not Detected (NotDetected); Tricyclic Antidepressant,Urine Not Detected (NotDetected); Urn Cannabinoid Scrn Not Detected (NotDetected)
[2023-07-06 03:13] LABS: Glucose,Whole Blood 140 mg/dL (70-110)
[2023-07-06] MEDS ORDERED: HALOPERIDOL LACTATE 5 MG/ML 1 ML VIAL IM PRN (15:55)
[2023-07-06] MEDS ORDERED: haloperidoL 5 MG TAB PO PRN (15:55)
[2023-07-06] MEDS ORDERED: LORazepam 1 MG TAB PO PRN (15:55)
[2023-07-06] MEDS ORDERED: MAGNESIUM HYDROXIDE 2,400 MG/30 ML CUP PO PRN (15:55)
[2023-07-06] MEDS ORDERED: ACETAMINOPHEN TAB 325 MG TAB PO PRN (15:55)
[2023-07-06] MEDS ORDERED: MAG HYDROX/AL HYDROX/SIMETH 355 ML BOTTLE PO PRN (15:55)
[2023-07-06] MEDS ORDERED: LORazepam 2 MG/ML INJ IM PRN (15:55)
[2023-07-07 01:49] LABS: Appearance,Urine Clear (Clear); Bilirubin,Urine Negative (Negative); Blood,Urine Negative (Negative); Color,Urine Yellow; Glucose,Urine (UA) Negative (Negative); Ketones,Urine Negative (Negative); Leukocyte Esterase,Urine Negative (Negative); Nitrite,Urine Negative (Negative); Protein,Urine Negative (Negative); Specific Gravity,Urine 1.028 (1.001-1.035); Urobilinogen,Urine <2.0 mg/dL (<2.0)
[2023-07-07] MEDS: IBUPROFEN 600 MG TAB PO PRN (07:59)
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
[2023-07-07 14:58] LABS: Basophils % (A) 1 %; Eosinophils # (A) 0.1 k/uL (0-0.7); Eosinophils % (A) 1 %; HCT 43.8 % (39.0-53.0); Lymphocytes # (A) 1.9 k/uL (1.0-4.8); Lymphocytes % (A) 20 %; MCH 33.9 pg (25.0-35.0); MCHC 34.2 g/dL (31.0-37.0); MCV 98.9 fL (80.0-100.0); Macrocytosis Slight; Mean Platelet Volume 7.6; Monocytes # (A) 0.4 k/uL (0-1.0); Monocytes % (A) 4 %; Neutrophils # (A) 6.7 k/uL (1.3-7.7); Neutrophils % (A) 73 %; Platelet Count 183 k/uL (150-450); RBC 4.43 m/uL (4.30-5.90); RDW 14.5 % (11.5-15.5); WBC 9.2 k/uL (3.8-10.6)
[2023-07-07 15:39] LABS: ALT 21 U/L (4-49); AST 23 U/L (17-59); African American GFR (CKD) >90 (>60 ml/min/1.73 sqM); Albumin 3.9 g/dL (3.5-5.0); Alkaline Phosphatase 79 U/L (38-126); Anion Gap 7 mmol/L; Bilirubin, Delta 0.2 mg/dL (0.0-0.2); Bilirubin,Unconjugated 0.2 mg/dL (0.0-1.1); Blood Urea Nitrogen 18 mg/dL (9-20); Calcium 9.3 mg/dL (8.4-10.2); Carbon Dioxide 26 mmol/L (22-30); Chloride 108 mmol/L (98-107); Glucose 128 mg/dL (74-99); Non-African American GFR(CKD) >90 (>60 ml/min/1.73 sqM); Potassium 4.1 mmol/L (3.5-5.1); Sodium 141 mmol/L (137-145); Total Bilirubin 0.4 mg/dL (0.2-1.3); Total Protein 6.6 g/dL (6.3-8.2)
[2023-07-07 17:51] LABS: Glucose,Whole Blood 111 mg/dL (70-110)
[2023-07-08 02:31] LABS: Chol/HDL Ratio 4.78 Ratio; LDL Cholesterol,Calculated 89.2 mg/dL (0.0-131.0)
--- NOTE | 2023-07-08 04:21 | P.MDCNMH ---
History of Present Illness H&P Date: 07/08/23 Chief Complaint: Medical evaluation 37-year-old male with no significant past medical history Patient coming in for mental health evaluation, he takes care of his bedbound mo m however he admits to having negative thoughts towards his mom and hurting her. Came in seeking help Patient otherwise denies any suicidal thoughts or hallucinations denies any fevers chills nausea vomiting abdominal pain chest pain trouble breathing denies any changes in bowel or urinary habits Patient denies tobacco smoking illicit drug or heavy alcohol review of systems Pertinent positives as noted in HPI. All other systems were reviewed and are negative on exam Constitutional: No acute distress, conversant, pleasant Eyes: Anicteric sclerae, moist conjunctiva, Pupils equal round reactive to light ENMT: NC/AT Lungs: Clear to auscultation Clear to percussion Normal respiratory effort, no accessory muscle use Cardiovascular: Heart regular in rate and rhythm, No murmurs, gallops, or rubs No peripheral edema Abdominal: Soft Nontender, no guarding, rebound or rigidity Abdomen moving with respiration Normoactive bowel sounds Extremities: No digital cyanosis No clubbing Pedal pulses intact and symmetrical Radial pulses intact and symmetrical No calf tenderness Psychiatric: Alert and oriented to person, place and time Neuro Muscles Strength 5/5 in all 4 extremities Sensation to light touch grossly present throughout Cranial nerves II-XII grossly intact Past Medical History Past Medical History: No Reported History, Diabetes Mellitus Additional Past Medical History / Comment(s): neuropathy History of Any Multi-Drug Resistant Organisms: None Reported Past Surgical History: Orthopedic Surgery, Tonsillectomy Additional Past Surgical History / Comment(s): left ankle Past Anesthesia/Blood Transfusion Reactions: No Reported Reaction Past Psychological History: Depression Smoking Status: Never smoker Past Alcohol Use History: None Reported, Rare Past Drug Use History: None Reported - Past Family History Mother Family Medical History: Hearing Disorder / Deafness Father Family Medical History: Cancer Medications and Allergies Home Medications Medication Instructions Recorded Confirmed Type Omeprazole 40 mg PO DAILY PRN 02/20/22 07/06/23 History Ibuprofen [Motrin] 800 mg PO Q6H PRN 07/06/23 07/06/23 History Allergies Allergy/AdvReac Type Severity Reaction Status Date / Time No Known Allergies Allergy Verified 07/06/23 15:56 Physical Exam Vitals: Vital Signs Temp Pulse Resp BP Pulse Ox 07/08/23 01:41 98 F 83 16 123/77 97 07/07/23 06:00 97.3 F L 85 97 H 131/76 Cranial Nerve Examination - Cranial Nerves Cranial Nerve II- Optic: Intact Cranial Nerve III- Oculomotor: Intact Cranial Nerve IV- Trochlear: Intact Cranial Nerve V- Trigeminal: Intact Cranial Nerve - Abducens: Intact Cranial Nerve VII- Facial: Intact Cranial Nerve VIII- Auditory: Intact Cranial Nerve IX- Glossopharyngeal: Intact Cranial Nerve X- Vagus: Intact Cranial Nerve XI- Accessory: Intact Cranial Nerve XII- Hypoglossal: Intact Results CBC & Chem 7: 07/07/23 14:33 07/07/23 14:33 Labs: Abnormal Lab Results - Last 24 Hours (Table) 07/07/23 07/07/23 Range/Units 14:33 17:49 Chloride 108 H (98-107) mmol/L Glucose 128 H (74-99) mg/dL POC Glucose (mg/dL) 111 H (70-110) mg/dL Triglycerides 242.00 H (0.00-149.00) mg/dL VLDL Cholesterol, Calc 48.40 H (5.00-40.00) mg/dL HDL Cholesterol 36.40 L (40.00-60.00) mg/dL Assessment and Plan Assessment: History of peripheral neuropathy 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
[2023-07-08] MEDS: PANTOPRAZOLE 40 MG TABLET PO PRN (09:06)
--- NOTE | 2023-07-08 11:32 | P.PN ---
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 Mood disorder unspecified Major neurocognitive disorder/developmental disorder unspecified Rule out autism spectrum disorder Neurologic disorder unspecified with peripheral neuropathy Date 07/08/2023 Subjective data: The patient was seen chart was reviewed and case discussed with the nursing staff Patient was laying comfortably in bed and appeared to be no acute physical dis tress She denies that he is having any suicidal or homicidal ideations He denies any thoughts of wanting to hurt his mother He says that he wants to go with independent living Patient however has no clear understanding of his financial support that is set up and monitored or maintain by the payee and the guardian from the state He also declined any medication intervention for any mood disturbances or agitation and denies that he has any Mental status examination: General Appearance: Patient appears to be stated age, obese in hospital gown Patient is currently laying in bed comfortably Behavior: No agitated behavior. Patient is calm and directable. Speech: Patient's speech is fluent and non-pressured. Mood/Affect: Mood is good, affect is congruent and constricted. Suicidality/Homicidality: Patient denies having any suicidal or homicidal ideation intent or plan. However admits having homicidal thoughts towards his mother Perceptions: Patient denies any auditory or visual hallucinations. Though content/process: There is no evidence of any delusional thought content and thought process is linear and goal-directed. 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 Patient has signed adult voluntary form and medication consent and is placed in patient's chart. -Medications : Patient has a guardian and we do not have enough information at this time regarding if patient has a surrogate decision maker for his medical needs before he started any new medications -Ativan and Haldol PRN for agitation/aggression -Patient was informed of the risks, benefits and side effects of the medication and patient verbally consented to taking the medications. Patient signed med consent form and was placed in chart. -Internal Medicine consult to perform medical evaluation and physical. -SW on board for discharge planning. Encourage patient to participate in groups to work on coping skills. child protective services specialist will explore his current situation regarding his placement recommendations Objective - Vital Signs Vital signs: Vital Signs Temp 98 F 07/08/23 01:41 Pulse 83 07/08/23 01:41 Resp 16 07/08/23 01:41 BP 123/77 07/08/23 01:41 Pulse Ox 97 07/08/23 01:41 FiO2 - Labs CBC & Chem 7: 07/07/23 14:33 07/07/23 14:33 Labs: Abnormal Lab Results - Last 24 Hours (Table) 07/07/23 07/07/23 Range/Units 14:33 17:49 Chloride 108 H (98-107) mmol/L Glucose 128 H (74-99) mg/dL POC Glucose (mg/dL) 111 H (70-110) mg/dL Triglycerides 242.00 H (0.00-149.00) mg/dL VLDL Cholesterol, Calc 48.40 H (5.00-40.00) mg/dL HDL Cholesterol 36.40 L (40.00-60.00) mg/dL
--- NOTE | 2023-07-08 14:17 | P.CNNES ---
History of Present Illness Consult date: 07/08/23 Requesting physician: Jamal Espitia Reason for Consult: Severe Neuropathy in all extremities History of Present Illness: Patient is a 37-year-old male, with history of Fcuehbk-Zkqiu-Kafba disease. Patient was admitted for some homicidal thoughts. Neurology consulted for his neuropathy. Patient states that his symptoms of neuropathy started since he was a child. He used to fall frequently and trips easily. He developed foot drop in his late 20s and started using bilateral foot brace. His hands become affected in mid 30s. He hardly can use utensils anymore. He holds spoon like a developer analyst. Patient has developed some intermittent numbness in the feet, his wrists and hands. It is not all the time. He still falls especially if he is too tired. Denies any problem with bowel bladder control. He does have some tremors. He believes that he inherited neuropathy from his mother, who also recently has developed right foot drop. Patient's mother is currently bedbound related to her CHF and also has incontinence of urine. Patient is the main caregiver, which was burning him out. Patient denies any tobacco use. He drinks alcohol about 1 to 2 cans of beer almost every night. He was diagnosed with diabetes 3 years ago, was started on Ozempic and metformin. His blood sugars has normalized therefore the me dications were discontinued in May 2023. Vital signs with initial blood pressure 160/80, pulse 85 temperature 98.0. Subsequent blood pressures have been running normal. Blood test shows normal CBC, CMP, UA, urine drug screen. Coronavirus PCR negative. Cholesterol 174, LDL 89, HDL 36 and triglycerides 242. Hemoglobin A1c 5.7. Patient had a CT head performed 06/04/2022 for fall, hit head and pain, which revealed no acute intracranial hemorrhage, mass effect or midline shift. Patient's previous B12 was 427, vitamin B6 7, MMA 0.12. Family history: Patient states that his mother suffers from CMT. Patient's mother has 2 biological children. His only sister lives in [place], and he has not had any contact with her since 2014. He does not know if she is symp tomatic. Patient's mother had a maternal aunt, who from cancer. Patient has maternal aunt Katherin and uncle Campbell, who are alive, but patient does not know if they are symptomatic. Uncle Bill has adopted children and aunt Faith has no children. Patient's maternal aunt who of cancer, does not know if anyone in the family is symptomatic. Apparently patient's maternal grandmother also had CMT. Patient states he was tested for CMT when he was a child in a [facility], does not know if genetic testing was ever done or not. He has not seen a neurologist since 2013. Review of Systems Constitutional: Reports weight gain, Denies chills, Denies fever Eyes: denies blurred vision, denies diplopia, denies pain, denies loss of vision Ears: deny: decreased hearing, ear discharge Ears, nose, mouth and throat: Denies headache, Denies sore throat, Denies vertigo Cardiovascular: Denies chest pain, Denies shortness of breath Respiratory: Denies cough, Denies excessive sputum Gastrointestinal: Reports heartburn, Reports indigestion, Reports nausea (after breakfast today), Denies abdominal pain, Denies diarrhea, Denies vomiting Genitourinary: Denies dysuria, Denies incontinence Musculoskeletal: Reports neck pain, Denies low back pain Integumentary: Denies pruritus, Denies rash Neurological: Reports as per HPI Psychiatric: Denies anxiety, Denies depression Endocrine: Reports fatigue, Reports weight change Past Medical History Past Medical History: No Reported History, Diabetes Mellitus Additional Past Medical History / Comment(s): neuropathy History of Any Multi-Drug Resistant Organisms: None Reported Past Surgical History: Orthopedic Surgery, Tonsillectomy Additional Past Surgical History / Comment(s): left ankle Past Anesthesia/Blood Transfusion Reactions: No Reported Reaction Past Psychological History: Depression Smoking Status: Never smoker Past Alcohol Use History: None Reported, Rare Past Drug Use History: None Reported - Past Family History Mother Family Medical History: Hearing Disorder / Deafness Father Family Medical History: Cancer Medications and Allergies Home Medications Medication Instructions Recorded Confirmed Type Omeprazole 40 mg PO DAILY PRN 02/20/22 07/06/23 History Ibuprofen [Motrin] 800 mg PO Q6H PRN 07/06/23 07/06/23 History Allergies Allergy/AdvReac Type Severity Reaction Status Date / Time No Known Allergies Allergy Verified 07/06/23 15:56 Physical Examination - Vital Signs Vital Signs: Vital Signs Temp Pulse Resp BP Pulse Ox 07/08/23 01:41 98 F 83 16 123/77 97 Patient is a young male, in no acute distress. Patient is alert awake oriented to time place and person. Speech and language functions are normal. Patient can name and repeat very well. No aphasia or dysarthria. Attention, concentration and fund of knowledge is adequate. On cranial nerve examination, pupils are equal, round and reacting to light, visual buck are full on confrontation, with no neglect on double simultaneous stimulation. Extraocular muscles are intact with no nystagmus. Face is symmetric, tongue protrudes to the midline. Palatal elevation and sensation normal, hearing and shoulder shrug normal, facial sensation normal. On muscle strength testing, there is no pronator drift and the strength is normal in bilateral deltoid, biceps, triceps, wrist extension and wrist flexion. However he is weak in finger extension 4, finger flexion 5-, interossei 3+4-. In the lower limbs his hip flexion, hip adduction, hip abduction, knee extension, knee flexion are all normal. He has bilateral foot drop. He is using bilateral foot brace. Deep tendon reflexes are symmetric 1+ at the biceps, 1 brachioradialis, 0 at the knees and ankles. Plantars flat. Sensory to light touch is equal in the arms distally and proximally. He has decreased sensation for touch up to the mid calves bilaterally. Cerebellar function showed no ataxia for [id number]-fj-[id number] testing. No dysdiadochokinesia. Cannot check for osho-[id number] testing. Patient has atrophy of the interosseous muscles of the hands and feet. Gait: Patient walks with a steppage gait because of bilateral foot drop. He was using bilateral foot brace but no other device. On general examination, there is no carotid bruit or murmur, S1-S2 audible. Chest is clear on consultation. Abdomen is soft nontender. No organomegaly, bowel sounds present. No peripheral edema. Results - Laboratory Findings CBC and BMP: 07/07/23 14:33 07/07/23 14:33 Abnormal Lab Findings: Abnormal Labs 07/06/23 07/07/23 07/07/23 03:11 14:33 17:49 Chloride 108 H Glucose 128 H POC Glucose (mg/dL) 140 H 111 H Triglycerides 242.00 H VLDL Cholesterol, Calc 48.40 H HDL Cholesterol 36.40 L Assessment and Plan Assessment: * Vxstesh-Wxnyk-Ypxgp disease (presumed as per patient's report). He inherited this neuropathy from his mother. Inflammatory and diabetic neuropathy unlikely because of the duration of symptoms, and preserved proximal reflexes in the upper limbs. * Bilateral foot drop, uses foot brace due to above. * History of diabetes, now in remission, off medication for diabetes. * Obesity * Homicidal thoughts. Plan: * We will check B12, folate, B6, MMA, CK, aldolase. TSH is normal 1.14 * Hemoglobin A1c 5.7. * Patient was recommended to follow-up with neuromuscular specialist at a tertiary care center like [facility] or [facility]. He may be referred to [facility] clinic for long-term management of his CMT. * Neurology will follow sporadically. Thank you for the consult.
[2023-07-09 07:30] VITALS: RESP 14
--- NOTE | 2023-07-09 08:51 | P.PN ---
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 Mood disorder unspecified Major neurocognitive disorder/developmental disorder unspecified Rule out autism spectrum disorder Neurologic disorder unspecified with peripheral neuropathy Date 07/09/2023 Subjective data: The interview was a petition of the previous day The patient was seen chart was reviewed and case discussed with the nursing staff Patient was laying comfortably in bed and appeared to be no acute physical distress She denies that he is having any suicidal or homicidal ideations He denies any thoughts of wanting to hurt his mother He says that he wants to go with independent living Patient however has no clear understanding of his financial support that is set up and monitored or maintain by the payee and the guardian from the state He also declined any medication intervention for any mood disturbances or agitation and denies that he has any Mental status examination: General Appearance: Patient appears to be stated age, obese in hospital gown Patient is currently laying in bed comfortably Behavior: No agitated behavior. Patient is calm and directable. Speech: Patient's speech is fluent and non-pressured. Mood/Affect: Mood is good, affect is congruent and constricted. Suicidality/Homicidality: Patient denies having any suicidal or homicidal ideation intent or plan. However admits having homicidal thoughts towards his mother Perceptions: Patient denies any auditory or visual hallucinations. Though content/process: There is no evidence of any delusional thought content and thought process is linear and goal-directed. 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 Patient has signed adult voluntary form and medication consent and is placed in patient's chart. -Medications : Patient has a guardian and we do not have enough information at this time regarding if patient has a surrogate decision maker for his medical needs before he started any new medications -Ativan and Haldol PRN for agitation/aggression -Patient was informed of the risks, benefits and side effects of the medication and patient verbally consented to taking the medications. Patient signed med consent form and was placed in chart. -Internal Medicine consult to perform medical evaluation and physical. -SW on board for discharge planning. Encourage patient to participate in groups to work on coping skills. resident services supervisor will explore his current situation regarding his placement recommendations Active Medications Generic Name Dose Route Start Last Admin Trade Name Freq PRN Reason Stop Dose Admin Acetaminophen 650 mg 07/06/23 15:55 Acetaminophen Tab 325 Mg Tab PO Q4HR PRN Mild Pain (Scale 1 to 3) Al Hydroxide/Mg Hydroxide 30 ml 07/06/23 15:55 Mag Hydrox/Al Hydrox/Simeth 355 Ml Bottle PO Q4HR PRN GI Upset Haloperidol 5 mg 07/06/23 15:55 Haloperidol 5 Mg Tab PO Q6HR PRN Agitation Haloperidol Lactate 5 mg 07/06/23 15:55 Haloperidol Lactate 5 Mg/Ml 1 Ml Vial IM Q6HR PRN Severe Agitation Ibuprofen 600 mg 07/06/23 15:55 07/07/23 23:48 Ibuprofen 600 Mg Tab PO 600 mg Q6HR PRN Administration Moderate Pain (Scale 4 to 6) Lorazepam 1 mg 07/06/23 15:55 Lorazepam 1 Mg Tab PO Q6HR PRN Anxiety Lorazepam 1 mg 07/06/23 15:55 Lorazepam 2 Mg/Ml Inj IM Q6HR PRN Severe Agitation Magnesium Hydroxide 2,400 mg 07/06/23 15:55 Magnesium Hydroxide 2,400 Mg/30 Ml Cup PO DAILY PRN Constipation Pantoprazole Sodium 40 mg 07/08/23 04:20 07/09/23 08:33 Pantoprazole 40 Mg Tablet PO 40 mg [id number] PRN Administration acid reflux Objective - Vital Signs Vital signs: Vital Signs Temp 97.6 F 07/09/23 06:50 Pulse 65 07/09/23 06:50 Resp 14 07/09/23 06:50 BP 116/67 07/09/23 06:50 Pulse Ox 98 07/09/23 06:50 FiO2 - Labs CBC & Chem 7: 07/07/23 14:33 07/07/23 14:33
--- NOTE | 2023-07-10 08:16 | P.PN ---
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 Mood disorder unspecified Major neurocognitive disorder/developmental disorder unspecified Rule out autism spectrum disorder Neurologic disorder unspecified with peripheral neuropathy Date 07/10/2023 Subjective data: The patient was seen chart was reviewed and case discussed with the nursing staff The patient is not very forthcoming today and remains somewhat guarded and wit hdrawn since the incident where he insulted one of the patients by making some lewd remarks and when confronted signed a 5 day notice Patient states that he would go to the long term and also he needs to go to his house to take back some of his belongings Patient is aware that his mother is living there and he had made threats to harm her which creates a dangerous situation at this time Patient did not deny or admit of any suicidal or homicidal thoughts at this time Remains guarded and superficial Mental status examination: General Appearance: Patient appears to be stated age, obese in hospital gown Patient is currently laying in bed comfortably Behavior: No agitated behavior. Patient is guarded and superficial Speech: Patient's speech is fluent and non-pressured. Mood/Affect: Mood is good, affect is congruent and constricted. Suicidality/Homicidality: Patient denies having any suicidal or homicidal ideation intent or plan. However admits having homicidal thoughts towards his mother Perceptions: Patient denies any auditory or visual hallucinations. Though content/process: There is no evidence of any delusional thought content and thought process is linear and goal-directed. 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 Patient has signed adult voluntary form and medication consent and is placed in patient's chart. -Medications : Patient has a guardian and we do not have enough information at this time regarding if patient has a surrogate decision maker for his medical needs before he started any new medications -Ativan and Haldol PRN for agitation/aggression -Patient was informed of the risks, benefits and side effects of the medication and patient verbally consented to taking the medications. Patient signed med consent form and was placed in chart. -Internal Medicine consult to perform medical evaluation and physical. -SW on board for discharge planning. Encourage patient to participate in groups to work on coping skills. outpatient services director will explore his current situation regarding his placement recommendations Active Medications Generic Name Dose Route Start Last Admin Trade Name Freq PRN Reason Stop Dose Admin Acetaminophen 650 mg 07/06/23 15:55 Acetaminophen Tab 325 Mg Tab PO Q4HR PRN Mild Pain (Scale 1 to 3) Al Hydroxide/Mg Hydroxide 30 ml 07/06/23 15:55 Mag Hydrox/Al Hydrox/Simeth 355 Ml Bottle PO Q4HR PRN GI Upset Haloperidol 5 mg 07/06/23 15:55 Haloperidol 5 Mg Tab PO Q6HR PRN Agitation Haloperidol Lactate 5 mg 07/06/23 15:55 Haloperidol Lactate 5 Mg/Ml 1 Ml Vial IM Q6HR PRN Severe Agitation Ibuprofen 600 mg 07/06/23 15:55 07/07/23 23:48 Ibuprofen 600 Mg Tab PO 600 mg Q6HR PRN Administration Moderate Pain (Scale 4 to 6) Lorazepam 1 mg 07/06/23 15:55 Lorazepam 1 Mg Tab PO Q6HR PRN Anxiety Lorazepam 1 mg 07/06/23 15:55 Lorazepam 2 Mg/Ml Inj IM Q6HR PRN Severe Agitation Magnesium Hydroxide 2,400 mg 07/06/23 15:55 Magnesium Hydroxide 2,400 Mg/30 Ml Cup PO DAILY PRN Constipation Pantoprazole Sodium 40 mg 07/08/23 04:20 07/09/23 08:33 Pantoprazole 40 Mg Tablet PO 40 mg [id number] PRN Administration acid reflux Objective - Vital Signs Vital signs: Vital Signs Temp 97.2 F L 07/10/23 07:05 Pulse 64 07/10/23 07:05 Resp 14 07/10/23 07:05 BP 114/62 07/10/23 07:05 Pulse Ox 98 07/09/23 06:50 FiO2 - Labs CBC & Chem 7: 07/07/23 14:33 07/07/23 14:33
[2023-07-10] MEDS: FOLIC ACID 1 MG TAB PO SCH (09:52)
[2023-07-10] MEDS: CYANOCOBALAMIN 500 MCG TAB PO SCH (09:52)
[2023-07-11 07:12] VITALS: BP 110/63; PULSE 68; TEMP 97.3
--- NOTE | 2023-07-11 08:35 | P.PN ---
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 Mood disorder unspecified Major neurocognitive disorder/developmental disorder unspecified Rule out autism spectrum disorder Neurologic disorder unspecified with peripheral neuropathy Date 07/11/2023 Subjective data: The patient was seen chart was reviewed and case discussed with the nursing staff When seen today patient was laying in bed and states that he was fine Patient reports that things have changed since last we spoke and that his mother will be a day assisted-living and plans to let the son stay in the house She said that she is also willing to turn over the house in his name He states that otherwise doing fine he states that he needs to go home so he can take care of his cat he denies any suicidal or homicidal ideations Mental status examination: General Appearance: Patient appears to be stated age, obese in hospital gown Patient is currently laying in bed comfortably Behavior: No agitated behavior. Patient is guarded and superficial Speech: Patient's speech is fluent and non-pressured. Mood/Affect: Mood is good, affect is congruent and constricted. Suicidality/Homicidality: Patient denies having any suicidal or homicidal ideation intent or plan. However admits having homicidal thoughts towards his mother Perceptions: Patient denies any auditory or visual hallucinations. Though content/process: There is no evidence of any delusional thought content and thought process is linear and goal-directed. 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 Patient has signed adult voluntary form and medication consent and is placed in patient's chart. -Medications : Patient has a guardian and we do not have enough information at this time regarding if patient has a surrogate decision maker for his medical needs before he started any new medications -Ativan and Haldol PRN for agitation/aggression -Patient was informed of the risks, benefits and side effects of the medication and patient verbally consented to taking the medications. Patient signed med consent form and was placed in chart. -Internal Medicine consult to perform medical evaluation and physical. -SW on board for discharge planning. Encourage patient to participate in groups to work on coping skills. We'll discuss in the staff meeting regarding if the above arrangements are true to the point and if the patient is safe enough to return back to home with the mother is not director of ancillary services will explore his current situation regarding his placement recommendations Active Medications Generic Name Dose Route Start Last Admin Trade Name Freq PRN Reason Stop Dose Admin Acetaminophen 650 mg 07/06/23 15:55 Acetaminophen Tab 325 Mg Tab PO Q4HR PRN Mild Pain (Scale 1 to 3) Al Hydroxide/Mg Hydroxide 30 ml 07/06/23 15:55 Mag Hydrox/Al Hydrox/Simeth 355 Ml Bottle PO Q4HR PRN GI Upset Haloperidol 5 mg 07/06/23 15:55 Haloperidol 5 Mg Tab PO Q6HR PRN Agitation Haloperidol Lactate 5 mg 07/06/23 15:55 Haloperidol Lactate 5 Mg/Ml 1 Ml Vial IM Q6HR PRN Severe Agitation Ibuprofen 600 mg 07/06/23 15:55 07/07/23 23:48 Ibuprofen 600 Mg Tab PO 600 mg Q6HR PRN Administration Moderate Pain (Scale 4 to 6) Lorazepam 1 mg 07/06/23 15:55 Lorazepam 1 Mg Tab PO Q6HR PRN Anxiety Lorazepam 1 mg 07/06/23 15:55 Lorazepam 2 Mg/Ml Inj IM Q6HR PRN Severe Agitation Magnesium Hydroxide 2,400 mg 07/06/23 15:55 Magnesium Hydroxide 2,400 Mg/30 Ml Cup PO DAILY PRN Constipation Pantoprazole Sodium 40 mg 07/08/23 04:20 07/09/23 08:33 Pantoprazole 40 Mg Tablet PO 40 mg [id number] PRN Administration acid reflux Objective - Vital Signs Vital signs: Vital Signs Temp 97.3 F L 07/11/23 06:43 Pulse 68 07/11/23 06:43 Resp 14 07/11/23 06:43 BP 110/63 07/11/23 06:43 Pulse Ox 98 07/09/23 06:50 FiO2 - Labs CBC & Chem 7: 07/07/23 14:33 07/07/23 14:33
== END 2023-07-11 14:02 | disposition home or self-care (01) | DRG 882 ==
LOC: EC 18:30 → 3MHU 07-06 15:43
PROVIDERS: ADMIT Psychiatry & Neurology Psychiatry; ATTEND Psychiatry & Neurology Psychiatry
DX: F43.25 Adjustment disorder with mixed disturbance of emotions and conduct (principal); Z68.41 Body mass index [BMI] 40.0-44.9, adult; R45.851 Suicidal ideations; F03.93 Unspecified dementia, unspecified severity, with mood disturbance; G60.0 Hereditary motor and sensory neuropathy; R45.850 Homicidal ideations; E11.9 Type 2 diabetes mellitus without complications; Z11.52 Encounter for screening for COVID-19; E66.9 Obesity, unspecified; M21.371 Foot drop, right foot; M21.372 Foot drop, left foot; Z59.6 Low income; Z79.899 Other long term (current) drug therapy
CPT/HCPCS: 36415; 80053; 80061; 80306; 81003; 82075; 82085; 82248; 82550; 82607; 82746; 83036; 83921; 84207; 84443; 85025; 87635; 99285

== ENCOUNTER 2023-09-18 20:23 | Emergency (ER) | payer MEDICARE, MEDICAID ==
--- NOTE | 2023-09-18 21:25 | ED ---
General Adult HPI - General Chief complaint: Psychiatric Symptoms Stated complaint: Suicidal Ideations Time Seen by Provider: 09/18/23 20:26 Source: patient Mode of arrival: EMS Limitations: no limitations - History of Present Illness Initial comments: Dictation was produced using [employer] dictation software. please excuse any grammatical, word or spelling errors. Chief Complaint: 37-year-old male presents to the emergency department for suicidal ideation History of Present Illness: Patient 37-year-old male states that he is suicidal. Patient does not have a plan. States that he his fiance made him suicidal because she tries to control his life including what he looks out on his phone and also what he wears. Patient states that he made a suicidal attempt when he was younger. Has not however had any attempts since then. Patient not homicidal. Denies any visual auditory hallucinations. The ROS documented in this emergency department record has been reviewed and confirmed by me. Those systems with pertinent positive or negative responses have been documented in the HPI. All other systems are other negative and/or noncontributory. - Related Data Home Medications Medication Instructions Recorded Confirmed Omeprazole 40 mg PO DAILY PRN 02/20/22 07/06/23 Ibuprofen [Motrin] 800 mg PO Q6H PRN 07/06/23 07/06/23 Allergies Allergy/AdvReac Type Severity Reaction Status Date / Time No Known Allergies Allergy Verified 07/06/23 15:56 Review of Systems ROS Statement: Those systems with pertinent positive or pertinent negative responses have been documented in the HPI. ROS Other: All systems not noted in ROS Statement are negative. Past Medical History Past Medical History: No Reported History, Diabetes Mellitus Additional Past Medical History / Comment(s): neuropathy, foot drop History of Any Multi-Drug Resistant Organisms: None Reported Past Surgical History: Orthopedic Surgery, Tonsillectomy Additional Past Surgical History / Comment(s): left ankle Past Anesthesia/Blood Transfusion Reactions: No Reported Reaction Past Psychological History: Depression Smoking Status: Never smoker Past Alcohol Use History: None Reported, Rare Past Drug Use History: None Reported - Past Family History Mother Family Medical History: Hearing Disorder / Deafness Father Family Medical History: Cancer General Exam - General Exam Comments Initial Comments: General: Well-appearing, nontoxic, no acute distress. Head: Normocephalic, atraumatic Eyes: PERRLA, EOMI ENT: Airway patent Chest: Nonlabored breathing Skin: No visual rash, normal skin tone Neuro: Alert and oriented 3 Musculoskeletal: No gross abnormalities Limitations: no limitations Course Vital Signs 09/18/23 20:27 Temperature 97.9 F Pulse Rate 87 Respiratory 16 Rate Blood Pressure 120/84 O2 Sat by Pulse 97 Oximetry Medical Decision Making - Medical Decision Making Was pt. sent in by a medical professional or institution (, PA, HEATSET WINDER OPERATOR, urgent care, hospital, or penitentiary...) When possible be specific @ -No Did you speak to anyone other than the patient for history (EMS, parent, family, police, friend...)? What history was obtained from this source @ -No Did you review nursing and triage notes (agree or disagree)? Why? @ -I reviewed and agree with nursing and triage notes Were old charts reviewed (outside hosp., previous admission, EMS record, old EKG, old radiological studies, urgent care reports/EKG's, penitentiary records)? Report findings @ -No old charts were reviewed Differential Diagnosis (chest pain, altered mental status, abdominal pain women, abdominal pain men, vaginal bleeding, musculoskeletal, weakness, fever, dyspnea, syncope, headache, dizziness, GI bleed, back pain, seizure, CVA, palpatations, mental health)? @ -Differential Mental Health: Depression, anxiety, bipolar, psychosis, schizophrenia, borderline personality, situational depression, adjustment disorder, behavioral disorder, brain tumor, malingering, substance abuse, encephalopathy, medication reaction, dementia, hypothyroidism, degenerative neurologic disorder, lupus.... This is not meant to be all-inclusive list EKG interpreted by me (3pts min.). @ -None done X-rays interpreted by me (1pt min.). @ -None done CT interpreted by me (1pt min.). @ -None done U/S interpreted by me (1pt. min.). @ -None done What testing was considered but not performed or refused? (CT, X-rays, U/S, labs)? Why? @ -None What meds were considered but not given or refused? Why? @ -None Did you discuss the management of the patient with other professionals (professionals i.e. , FERNANDO, HEATSET WINDER OPERATOR, lab, RT, psych nurse, social worker school, sprinkler installer, teacher, credit risk officer, rifle case repairer)? Give summary @ -No Was smoking cessation discussed for >3mins.? @ -No Was critical care preformed (if so, how long)? @ -No Were there social determinants of health that impacted care today? How? (Homelessness, low income, unemployed, alcoholism, drug addiction, transportation, low edu. Level, literacy, decrease access to med. care, half-way, rehab)? @ -No Was there de-escalation of care discussed even if they declined (Discuss DNR or withdrawal of care, Hospice)? DNR status @ -No What co-morbidities impacted this encounter? (DM, HTN, Smoking, COPD, CAD, Cancer, CVA, ARF, Chemo, Hep., AIDS, mental health diagnosis, sleep apnea, morbid obesity)? @ -None Was patient admitted / discharged? Hospital course, mention meds given and route, prescriptions, significant lab abnormalities, going to OR and other pertinent info. @ -37-year-old male presents to the emergency department for suicidal ideation. Vital signs stable. Patient well-appearing at the bedside. Physical examination is benign. Patient has no medical complaints. Patiently medically cleared for EPS Patient seen and evaluated by EPS and recommended discharge. Undiagnosed new problem with uncertain prognosis? @ -No Drug Therapy requiring intensive monitoring for toxicity (Heparin, Nitro, Insulin, Cardizem)? @ -No Were any procedures done? @ -No Diagnosis/symptom? Acute, or Chronic, or Acute on Chronic? Uncomplicated (without systemic symptoms) or Complicated (systemic symptoms)? @ -Suicidal ideation Side effects of treatment? @ -No Exacerbation, Progression, or Severe Exacerbation? @ -No Poses a threat to life or bodily function? How? (Chest pain, [place], [place], pneumonia, PE, COPD, DKA, ARF, appy, cholecystitis, CVA, Diverticulitis, Homicidal, Suicidal, threat to staff... and all critical care pts) @ -yes Disposition Clinical Impression: Suicidal ideation Disposition: HOME SELF-CARE Condition: Good Instructions (If sedation given, give patient instructions): Suicide Prevention (ED) Is patient prescribed a controlled substance at d/c from ED?: No Referrals: Jack Stockton MD [Primary Care Provider] - 1-2 days Time of Disposition: 22:10
[2023-09-18 22:45] VITALS: BP 135/88; PULSE 88; RESP 18; TEMP 98.6
== END 2023-09-18 22:34 | disposition home or self-care (01) ==
LOC: EC 20:23
DX: R45.851 Suicidal ideations (principal)
CPT/HCPCS: 82075; 99284

== ENCOUNTER 2023-11-02 22:11 | Emergency (ER) | payer MEDICARE, OTHER ==
[2023-11-02 22:19] VITALS: BP 124/87; PULSE 87; RESP 18
--- NOTE | 2023-11-02 22:28 | ED ---
Back Pain HPI - General Chief Complaint: Back Pain/Injury Stated Complaint: Back Pain Time Seen by Provider: 11/02/23 22:14 Source: patient, EMS Limitations: no limitations - History of Present Illness Initial Comments: This patient is a 38-year-old man who presents with back pain. The patient states that he was doing laundry tonight. He had bent down to put laundry into the machine and when he stood up he felt sudden sharp pain. There was no blow to the back. There was no fall. Denies weakness or numbness of the extremities. There is been no change in bladder or bowel control. No saddle anesthesia MD Complaint: back injury -: hour(s) Similar Symptoms Previously: Yes Place: home Radiation: none Severity: moderate Consistency: constant Improves With: immobilization Worsens With: movement Context: turning/twisting Treatments Prior to Arrival: NSAIDS - Related Data Home Medications Medication Instructions Recorded Confirmed Omeprazole 40 mg PO DAILY PRN 02/20/22 07/06/23 Ibuprofen [Motrin] 800 mg PO Q6H PRN 07/06/23 07/06/23 Previous Rx's Medication Instructions Recorded Ibuprofen [Motrin] 800 mg PO Q8H #21 tab 11/02/23 methocarbamoL [Robaxin-750] 1,500 mg PO TID #42 tab 11/02/23 Allergies Allergy/AdvReac Type Severity Reaction Status Date / Time No Known Allergies Allergy Verified 07/06/23 15:56 Review of Systems ROS Statement: Those systems with pertinent positive or pertinent negative responses have been documented in the HPI. ROS Other: All systems not noted in ROS Statement are negative. Constitutional: Denies: fever, chills, weakness Respiratory: Denies: cough, dyspnea Cardiovascular: Denies: chest pain, edema Gastrointestinal: Denies: abdominal pain, diarrhea, constipation Genitourinary: Denies: dysuria, frequency, hematuria Musculoskeletal: Reports: as per HPI, back pain Neurological: Denies: weakness, numbness Past Medical History Past Medical History: No Reported History, Diabetes Mellitus Additional Past Medical History / Comment(s): neuropathy, foot drop History of Any Multi-Drug Resistant Organisms: None Reported Past Surgical History: Orthopedic Surgery, Tonsillectomy Additional Past Surgical History / Comment(s): left ankle Past Anesthesia/Blood Transfusion Reactions: No Reported Reaction Past Psychological History: Depression Smoking Status: Never smoker Past Alcohol Use History: None Reported, Rare Past Drug Use History: None Reported - Past Family History Mother Family Medical History: Hearing Disorder / Deafness Father Family Medical History: Cancer General Exam Limitations: no limitations General appearance: alert, in no apparent distress Head exam: Present: atraumatic, normocephalic Eye exam: Present: normal appearance Respiratory exam: Present: normal lung sounds bilaterally. Absent: respiratory distress, wheezes, rales, rhonchi, stridor Cardiovascular Exam: Present: regular rate, normal rhythm, normal heart sounds. Absent: systolic murmur, diastolic murmur, rubs, gallop GI/Abdominal exam: Present: soft. Absent: distended, tenderness, guarding, rebound, rigid, mass Extremities exam: Present: other (General ankle-foot orthotic) Back exam: Present: normal inspection, muscle spasm, paraspinal tenderness (Left > Right). Absent: CVA tenderness (R), CVA tenderness (L), vertebral tenderness Neurological exam: Present: alert. Absent: motor sensory deficit Skin exam: Present: warm, dry, intact, normal color. Absent: rash Course Vital Signs 11/02/23 22:14 Pulse Rate 87 Respiratory 18 Rate Blood Pressure 124/87 O2 Sat by Pulse 97 Oximetry Medical Decision Making - Medical Decision Making Was pt. sent in by a medical professional or institution (FERNANDO Nelson, APPOINTMENT COORDINATOR, urgent care, hospital, or longterm...) When possible be specific @ -[No] Did you speak to anyone other than the patient for history (EMS, parent, family, police, friend...)? What history was obtained from this source @ -[No] Did you review nursing and triage notes (agree or disagree)? Why? @ -[I reviewed and agree with nursing and triage notes] Were old charts reviewed (outside hosp., previous admission, EMS record, old EKG, old radiological studies, urgent care reports/EKG's, longterm records)? Report findings @ -[No old charts were reviewed] Differential Diagnosis (chest pain, altered mental status, abdominal pain women, abdominal pain men, vaginal bleeding, weakness, fever, dyspnea, syncope, headache, dizziness, GI bleed, back pain, seizure, CVA, palpatations, mental health, musculoskeletal)? @ -[Differential Back Pain: Strain, zoster, cauda equina syndrome, epidural abscess, vertebral osteomyelitis, discitis, fracture, subluxation, disc herniation, DJD, spinal stenosis, dissection, AAA, pancreatitis, peptic ulcer disease, pyelonephritis, kidney stone, this is not meant to be an all-inclusive list. EKG interpreted by me (3pts min.). @ -[As above] X-rays interpreted by me (1pt min.). @ -[None done] CT interpreted by me (1pt min.). @ -[None done] U/S interpreted by me (1pt. min.). @ -[None done] What testing was considered but not performed or refused? (CT, X-rays, U/S, labs)? Why? @ -[None] What meds were considered but not given or refused? Why? @ -[None] Did you discuss the management of the patient with other professionals (professionals i.e. , PA, APPOINTMENT COORDINATOR, lab, RT, psych nurse, social sciences research scientist, doctor of dental surgery, teacher, special service officer, telephonic case manager)? Give summary @ -[No] Was smoking cessation discussed for >3mins.? @ -[No] Was critical care preformed (if so, how long)? @ -[No] Were there social determinants of health that impacted care today? How? (Homelessness, low income, unemployed, alcoholism, drug addiction, transportation, low edu. Level, literacy, decrease access to med. care, custodial, rehab)? @ -[No] Was there de-escalation of care discussed even if they declined (Discuss DNR or withdrawal of care, Hospice)? DNR status @ -[No] What co-morbidities impacted this encounter? (DM, HTN, Smoking, COPD, CAD, Cancer, CVA, ARF, Chemo, Hep., AIDS, mental health diagnosis, sleep apnea, morbid obesity)? @ -[None] Was patient admitted / discharged? Hospital course, mention meds given and route, prescriptions, significant lab abnormalities, going to OR and other pertinent info. @ -[Patient feeling better following treatment here. Discussed appropriate further care and follow-up as well as return parameters. Undiagnosed new problem with uncertain prognosis? @ -[No] Drug Therapy requiring intensive monitoring for toxicity (Heparin, Nitro, Insulin, Cardizem)? @ -[No] Were any procedures done? @ -[No] Diagnosis/symptom? @ -[Acute low back pain Acute, or Chronic, or Acute on Chronic? @ -[Acute Uncomplicated (without systemic symptoms) or Complicated (systemic symptoms)? @ -[Uncomplicated Side effects of treatment? @ -[No] Exacerbation, Progression, or Severe Exacerbation? @ -[No] Poses a threat to life or bodily function? How? (Chest pain, [place], [place], pneumonia, PE, COPD, DKA, ARF, appy, cholecystitis, CVA, Diverticulitis, Homicidal, Suicidal, threat to staff... and all critical care pts) @ -[No] Disposition Clinical Impression: Strain of lumbar region Disposition: HOME SELF-CARE Condition: Good Instructions (If sedation given, give patient instructions): Acute Low Back Pain (ED) Prescriptions: Ibuprofen [Motrin] 800 mg PO Q8H #21 tab methocarbamoL [Robaxin-750] 1,500 mg PO TID #42 tab Is patient prescribed a controlled substance at d/c from ED?: No Referrals: Louie Stockton MD [Primary Care Provider] - 1-2 days
[2023-11-02] MEDS: KETOROLAC 15 MG/ML 1 ML VIAL IM STA (22:32)
[2023-11-02] MEDS: ORPHENADRINE 30 MG/ML 2 ML VIAL IM STA (22:32)
[2023-11-02] MEDS: HYDROmorphone 0.5 MG/0.5 ML SYRINGE IM STA (23:43)
== END 2023-11-03 00:25 | disposition home or self-care (01) ==
LOC: EC 22:11
DX: S39.012A Strain of muscle, fascia and tendon of lower back, initial encounter (principal); X58.XXXA Exposure to other specified factors, initial encounter
CPT/HCPCS: 99283; 96372 ×3; J2360; J1885; J1170; 99284

== ENCOUNTER 2023-12-06 23:25 | Inpatient (IN) | payer MEDICARE, MEDICAID ==
--- NOTE | 2023-12-06 23:58 | ED ---
General Adult HPI - General Source: patient, EMS, RN notes reviewed, old records reviewed Mode of arrival: EMS Limitations: no limitations <Mohan Singer - Last Filed: 12/07/23 01:05> <Dimitri Wilkins - Last Filed: 12/07/23 10:07> - General Chief complaint: Psychiatric Symptoms Stated complaint: Mental Health Time Seen by Provider: 12/06/23 23:35 - History of Present Illness Initial comments: Patient is a 38-year-old male who presents emergency department for suicidal ideations. Has been seen here previously for homicidal ideations as well as suicidal ideations in the past. He denies any physical complaints. States he was trying to break-up with his girlfriend and she would not break up with him which caused him to state he was thinking of hurting himself. Patient's plan is to drive his car into into a body of water. Denies attempt. Denies any hallucinations. Denies any other acute complaints at this time. Presents for further evaluation. Does not follow-up with therapist. (Mohan Singer) - Related Data Home Medications Medication Instructions Recorded Confirmed Omeprazole 40 mg PO DAILY PRN 02/20/22 07/06/23 Ibuprofen [Motrin] 800 mg PO Q6H PRN 07/06/23 07/06/23 Previous Rx's Medication Instructions Recorded Ibuprofen [Motrin] 800 mg PO Q8H #21 tab 11/02/23 methocarbamoL [Robaxin-750] 1,500 mg PO TID #42 tab 11/02/23 Allergies Allergy/AdvReac Type Severity Reaction Status Date / Time No Known Allergies Allergy Verified 07/06/23 15:56 Review of Systems ROS Other: All systems not noted in ROS Statement are negative. <Mohan Singer - Last Filed: 12/07/23 01:05> ROS Other: All systems not noted in ROS Statement are negative. <Dimitri Wilkins - Last Filed: 12/07/23 10:07> ROS Statement: Those systems with pertinent positive or pertinent negative responses have been documented in the HPI. Review of Systems: CONST: Denies fever EYES: Denies blurry vision ENT: Denies nasal congestion C/V: Denies Chest pain RESP: Denies shortness of breath GI: Denies abdominal pain : Denies dysuria SKIN: Denies rash. MSK: Denies joint pain. NEURO: Denies headache (Mohan Singer) Past Medical History Past Medical History: No Reported History, Diabetes Mellitus Additional Past Medical History / Comment(s): neuropathy, foot drop History of Any Multi-Drug Resistant Organisms: None Reported Past Surgical History: Orthopedic Surgery, Tonsillectomy Additional Past Surgical History / Comment(s): left ankle Past Anesthesia/Blood Transfusion Reactions: No Reported Reaction Past Psychological History: Depression Smoking Status: Never smoker Past Alcohol Use History: None Reported, Rare Past Drug Use History: None Reported - Past Family History Mother Family Medical History: Hearing Disorder / Deafness Father Family Medical History: Cancer <Mohan Singer - Last Filed: 12/07/23 01:05> General Exam Limitations: no limitations <Mohan Singer - Last Filed: 12/07/23 01:05> - General Exam Comments Initial Comments: General: Appears in no acute distress. HEAD: Normal with no signs of head trauma. EYES: EOMI. ENT: Hearing grossly intact. RESPIRATORY: No respiratory distress. C/V: Regular rate and rhythm. ABD: Abdomen is nondistended. EXT: No obvious deformity. SKIN: No rashes or lesions observed on exposed skin. NEURO: Alert and oriented. (Mohan Singer) Course Vital Signs 12/06/23 12/07/23 23:28 06:27 Temperature 98.2 F 98.5 F Pulse Rate 90 88 Respiratory 16 18 Rate Blood Pressure 112/76 127/81 O2 Sat by Pulse 95 97 Oximetry Medical Decision Making <Mohan Singer - Last Filed: 12/07/23 01:05> <Dimitri Wilkins - Last Filed: 12/07/23 10:07> - Medical Decision Making Was pt. sent in by a medical professional or institution (, PA, PARACHUTE PACKER, urgent care, hospital, or fpc...) When possible be specific @ -No Did you speak to anyone other than the patient for history (EMS, parent, family, police, friend...)? What history was obtained from this source @ -No Did you review nursing and triage notes (agree or disagree)? Why? @ -I reviewed and agree with nursing and triage notes Were old charts reviewed (outside hosp., previous admission, EMS record, old EKG, old radiological studies, urgent care reports/EKG's, fpc records)? Report findings @ -old charts were which revealed the patient was previously admitted for suicidal ideations. In July 2023. Differential Diagnosis (chest pain, altered mental status, abdominal pain women, abdominal pain men, vaginal bleeding, weakness, fever, dyspnea, syncope, headache, dizziness, GI bleed, back pain, seizure, CVA, palpatations, mental health, musculoskeletal)? @ -Differential Mental Health Depression, anxiety, bipolar, psychosis, schizophrenia, borderline personality, situational depression, adjustment disorder, behavioral disorder, brain tumor, malingering, substance abuse, encephalopathy, medication reaction, dementia, hypothyroidism, degenerative neurologic disorder, lupus.... This is not meant to be all-inclusive list EKG interpreted by me (3pts min.). @ -None done X-rays interpreted by me (1pt min.). @ -None done CT interpreted by me (1pt min.). @ -None done U/S interpreted by me (1pt. min.). @ -None done What testing was considered but not performed or refused? (CT, X-rays, U/S, labs)? Why? @ -None What meds were considered but not given or refused? Why? @ -None Did you discuss the management of the patient with other professionals (professionals i.e. , PA, PARACHUTE PACKER, lab, RT, psych nurse, forensic social worker, grain commodity manager, teacher, airport operations officer, rn case management)? Give summary @ -EPS notified of the consult. Was smoking cessation discussed for >3mins.? @ -No Was critical care preformed (if so, how long)? @ -No Were there social determinants of health that impacted care today? How? ( Homelessness, low income, unemployed, alcoholism, drug addiction, transportation, low edu. Level, literacy, decrease access to med. care, prison, rehab)? @ -No Was there de-escalation of care discussed even if they declined (Discuss DNR or withdrawal of care, Hospice)? DNR status @ -No What co-morbidities impacted this encounter? (DM, HTN, Smoking, COPD, CAD, Cancer, CVA, ARF, Chemo, Hep., AIDS, mental health diagnosis, sleep apnea, morbid obesity)? @ -None Was patient admitted / discharged? Hospital course, mention meds given and route, prescriptions, significant lab abnormalities, going to OR and other pertinent info. @ -Patient presents for suicidal ideations with plan. Vital signs within acceptable limits. Sitter ordered. Suicide precautions ordered. BAT is 0. UDS is pending. At this time, patient is medically cleared for evaluation by psychiatry. Disposition pending psychiatric evaluation. EPS notified of the consult. Undiagnosed new problem with uncertain prognosis? @ -No Drug Therapy requiring intensive monitoring for toxicity (Heparin, Nitro, Insulin, Cardizem)? @ -No Were any procedures done? @ -No (Mohan Singer) Was patient admitted / discharged? Hospital course, mention meds given and route, prescriptions, significant lab abnormalities, going to OR and other pertinent info. @ -EPS evaluated the patient EPS spoke with me and the psychiatrist and it was determined the patient will be admitted. Undiagnosed new problem with uncertain prognosis? @ -No Drug Therapy requiring intensive monitoring for toxicity (Heparin, Nitro, I nsulin, Cardizem)? @ -No Were any procedures done? @ -No Diagnosis/symptom? @ -Suicidal ideation Acute, or Chronic, or Acute on Chronic? @ -Acute Uncomplicated (without systemic symptoms) or Complicated (systemic symptoms)? @ -Complicated Side effects of treatment? @ -No Exacerbation, Progression, or Severe Exacerbation? @ -No Poses a threat to life or bodily function? How? (Chest pain, [place], [place], pneumonia, PE, COPD, DKA, ARF, appy, cholecystitis, CVA, Diverticulitis, Homicidal, Suicidal, threat to staff... and all critical care pts) @ -No (Dimitri Wilkins) - Lab Data Lab Results 12/07/23 12/07/23 Range/Units 04:56 09:08 POC Glucose (mg/dL) 163 H (70-110) mg/dL POC Glu Postmaster Relief ID Urine Opiates Screen Not Detected (NotDetected) Ur Oxycodone Screen Not Detected (NotDetected) Urine Methadone Screen Not Detected (NotDetected) Ur Barbiturates Screen Not Detected (NotDetected) U Tricyclic Antidepress Not Detected (NotDetected) Ur Phencyclidine Scrn Not Detected (NotDetected) Ur Amphetamines Screen Not Detected (NotDetected) U Methamphetamines Scrn Not Detected (NotDetected) U Benzodiazepines Scrn Not Detected (NotDetected) Urine Cocaine Screen Not Detected (NotDetected) U Marijuana (THC) Screen Not Detected (NotDetected) Disposition <Mohan Singer - Last Filed: 12/07/23 01:05> Time of Disposition: 10:07 <Dimitri Wilkins - Last Filed: 12/07/23 10:07> Clinical Impression: Suicidal ideation, Homicidal ideation Disposition: ADMITTED IP TO THIS HOSP Referrals: Louie Stockton MD [Primary Care Provider] - 1-2 days
[2023-12-07 05:50] LABS: Amphetamine Screen,Urine Not Detected (NotDetected); Barbiturate Screen,Urine Not Detected (NotDetected); Benzodiazepines Screen,Urine Not Detected (NotDetected); Cocaine Screen,Urine Not Detected (NotDetected); Methadone Screen, Urine Not Detected (NotDetected); Opiate Screen,Urine Not Detected (NotDetected); Oxycodone Screen, Urine Not Detected (NotDetected); Phencyclidine Screen,Urine Not Detected (NotDetected); Tricyclic Antidepressant,Urine Not Detected (NotDetected); Urn Cannabinoid Scrn Not Detected (NotDetected)
[2023-12-07 09:09] LABS: Glucose,Whole Blood 163 mg/dL (70-110)
[2023-12-07] MEDS ORDERED: PANTOPRAZOLE 40 MG TABLET PO PRN (11:22)
[2023-12-07] MEDS ORDERED: DEXTROSE 50% SYRINGE 50 ML IVP PRN ×4 (11:24→22:17)
[2023-12-07] MEDS ORDERED: haloperidoL 5 MG TAB PO PRN (11:27)
[2023-12-07] MEDS ORDERED: LORazepam 1 MG TAB PO PRN ×2 (11:27)
[2023-12-07] MEDS ORDERED: HALOPERIDOL LACTATE 5 MG/ML 1 ML VIAL IM PRN (11:27)
[2023-12-07] MEDS ORDERED: MAGNESIUM HYDROXIDE 2,400 MG/30 ML CUP PO PRN (11:27)
[2023-12-07] MEDS ORDERED: ACETAMINOPHEN TAB 325 MG TAB PO PRN (11:27)
[2023-12-07] MEDS ORDERED: MAG HYDROX/AL HYDROX/SIMETH 355 ML BOTTLE PO PRN (11:27)
[2023-12-07 13:50] LABS: Glucose,Whole Blood 130 mg/dL (70-110)
[2023-12-07] MEDS: INSULIN ASPART (NovoLOG) 100 UNIT/ML VIAL SQ SCH (13:52)
[2023-12-07] MEDS: IBUPROFEN 800 MG TAB PO SCH (13:52)
[2023-12-07 17:37] LABS: Glucose,Whole Blood 108 mg/dL (70-110)
[2023-12-07 20:05] LABS: Glucose,Whole Blood 97 mg/dL (70-110)
--- NOTE | 2023-12-07 22:11 | P.MDCNMH ---
History of Present Illness H&P Date: 12/07/23 Chief Complaint: Medical evaluation 38-year-old male with peripheral neuropathy Patient coming in to the ED for evaluation of suicidal ideation. Patient endorses suicidal ideation as he was trying to leave his girlfriend and having some social challenges. Patient denies any medical concerns at this time denies any fevers chills coughing chest pain trouble breathing nausea vomiting abdominal pain diarrhea or GI bleeding review of systems Pertinent positives as noted in HPI. All other systems were reviewed and are negative on exam Constitutional: No acute distress, Eyes: Anicteric sclerae, moist conjunctiva, Pupils equal round reactive to light Lungs: Clear to auscultation Clear to percussion Normal respiratory effort, no accessory muscle use Cardiovascular: Heart regular in rate and rhythm, No murmurs, gallops, or rubs No peripheral edema Abdominal: Soft Nontender, no guarding, rebound or rigidity Abdomen moving with respiration Normoactive bowel sounds Extremities: No digital cyanosis No clubbing Pedal pulses intact and symmetrical Radial pulses intact and symmetrical No calf tenderness Psychiatric: Alert and oriented to person, place and time Neuro Muscles Strength 4/5 in all 4 extremities Sensation to light touch decreased over bilateral distal mid legs Cranial nerves II-XII grossly intact Past Medical History Past Medical History: No Reported History, Diabetes Mellitus Additional Past Medical History / Comment(s): neuropathy, foot drop History of Any Multi-Drug Resistant Organisms: None Reported Past Surgical History: Orthopedic Surgery, Tonsillectomy Additional Past Surgical History / Comment(s): left ankle Past Anesthesia/Blood Transfusion Reactions: No Reported Reaction Past Psychological History: Depression Smoking Status: Never smoker Past Alcohol Use History: None Reported, Rare Past Drug Use History: None Reported - Past Family History Mother Family Medical History: Hearing Disorder / Deafness Father Family Medical History: Cancer Medications and Allergies Home Medications Medication Instructions Recorded Confirmed Type Omeprazole 40 mg PO DAILY PRN 02/20/22 12/07/23 History Ibuprofen [Motrin] 800 mg PO Q8H #21 tab 11/02/23 12/07/23 Rx methocarbamoL [Robaxin-750] 1,500 mg PO TID #42 tab 11/02/23 Rx Semaglutide [Ozempic] 2 mg SQ Q7DAYS 12/07/23 12/07/23 History Allergies Allergy/AdvReac Type Severity Reaction Status Date / Time No Known Allergies Allergy Verified 07/06/23 15:56 Physical Exam Vitals: Vital Signs Temp Pulse Pulse Resp BP BP Pulse Ox 12/07/23 13:17 97.2 F L 100 20 135/72 12/07/23 12:40 98 F 75 16 132/78 96 12/07/23 06:27 98.5 F 88 18 127/81 97 12/06/23 23:28 98.2 F 90 16 112/76 95 Intake and Output 12/07/23 12/07/23 12/07/23 06:59 14:59 22:59 Other: Weight 125.645 kg 121.291 kg Cranial Nerve Examination - Cranial Nerves Cranial Nerve II- Optic: Intact Cranial Nerve III- Oculomotor: Intact Cranial Nerve IV- Trochlear: Intact Cranial Nerve V- Trigeminal: Intact Cranial Nerve - Abducens: Intact Cranial Nerve VII- Facial: Intact Cranial Nerve VIII- Auditory: Intact Cranial Nerve IX- Glossopharyngeal: Intact Cranial Nerve X- Vagus: Intact Cranial Nerve XI- Accessory: Intact Cranial Nerve XII- Hypoglossal: Intact Results Labs: Abnormal Lab Results - Last 24 Hours (Table) 12/07/23 12/07/23 Range/Units 09:08 13:49 POC Glucose (mg/dL) 163 H 130 H (70-110) mg/dL Assessment and Plan Assessment: Prediabetes mellitus Insulin sliding scale low-dose Check A1c Suicidal ideation management per psych Morbid obesity Patient counseled regarding lifestyle modification weight loss Urine drug screen negative COVID test negative Patient stable overall from medical standpoint Fall precautions Thank you for this consultation
[2023-12-08 00:33] LABS: Appearance,Urine Turbid (Clear); Bilirubin,Urine Negative (Negative); Blood,Urine Negative (Negative); Color,Urine Yellow; Glucose,Urine (UA) Negative (Negative); Ketones,Urine Negative (Negative); Leukocyte Esterase,Urine Negative (Negative); Mucus,Urine Many /hpf; Nitrite,Urine Negative (Negative); Protein,Urine Trace (Negative); Specific Gravity,Urine 1.025 (1.001-1.035); Urobilinogen,Urine <2.0 mg/dL (<2.0); WBC,Urine 5 /hpf (0-5)
[2023-12-08 06:55] VITALS: BP 112/77; PULSE 91; RESP 16; TEMP 98
[2023-12-08] MEDS ORDERED: INSULIN ASPART (NovoLOG) 100 UNIT/ML VIAL SQ SCH (07:30)
[2023-12-08 07:38] LABS: Glucose,Whole Blood 115 mg/dL (70-110)
[2023-12-08 12:34] LABS: Glucose,Whole Blood 96 mg/dL (70-110)
[2023-12-08] MEDS ORDERED: ESCITALOPRAM 10 MG TAB ONE (16:09)
[2023-12-08 17:50] LABS: Glucose,Whole Blood 122 mg/dL (70-110)
[2023-12-08 19:55] LABS: Glucose,Whole Blood 94 mg/dL (70-110)
[2023-12-09 07:47] LABS: Glucose,Whole Blood 93 mg/dL (70-110)
[2023-12-09] MEDS ORDERED: ESCITALOPRAM 10 MG TAB ONE (08:07)
[2023-12-09 12:49] LABS: Glucose,Whole Blood 89 mg/dL (70-110)
[2023-12-09 17:39] LABS: Glucose,Whole Blood 111 mg/dL (70-110)
[2023-12-09 19:52] LABS: Glucose,Whole Blood 90 mg/dL (70-110)
[2023-12-10 07:51] LABS: Glucose,Whole Blood 107 mg/dL (70-110)
[2023-12-10] MEDS ORDERED: ESCITALOPRAM 10 MG TAB ONE (07:51)
[2023-12-10 12:48] LABS: Glucose,Whole Blood 119 mg/dL (70-110)
== END 2023-12-10 16:16 | disposition home or self-care (01) | DRG 881 ==
LOC: EC 23:25 → 3MHU 12-07 11:19
PROVIDERS: ADMIT Psychiatry & Neurology Psychiatry; ATTEND Psychiatry & Neurology Psychiatry
DX: F32.A Depression, unspecified (principal); R45.851 Suicidal ideations; Z68.41 Body mass index [BMI] 40.0-44.9, adult; E66.01 Morbid (severe) obesity due to excess calories; G62.9 Polyneuropathy, unspecified; R45.850 Homicidal ideations; R73.03 Prediabetes
CPT/HCPCS: 36415; 80306; 81001; 82075; 87635; 99285

== ENCOUNTER 2024-03-15 16:14 | Inpatient (IN) | payer MEDICARE, MEDICAID ==
--- NOTE | 2024-03-15 16:58 | ED ---
General Adult HPI - General Chief complaint: Psychiatric Symptoms Stated complaint: petition Time Seen by Provider: 03/15/24 16:42 Source: patient, RN notes reviewed, old records reviewed Mode of arrival: ambulatory Limitations: no limitations - History of Present Illness Initial comments: 38-year-old male presenting for psychiatric evaluation. Patient admits to suicidal thoughts with plan to commit suicide with fentanyl. Patient denies new physical complaints. Denies suicide attempt. He states he was recently admitted to mental health several months prior. Patient has been petitioned. - Related Data Home Medications Medication Instructions Recorded Confirmed Omeprazole 40 mg PO DAILY 02/20/22 03/15/24 Escitalopram [Lexapro] 5 mg PO DAILY 03/15/24 03/15/24 Ibuprofen [Motrin] 800 mg PO Q6H PRN 03/15/24 03/15/24 Allergies Allergy/AdvReac Type Severity Reaction Status Date / Time No Known Allergies Allergy Verified 03/15/24 17:57 Review of Systems ROS Statement: Those systems with pertinent positive or pertinent negative responses have been documented in the HPI. ROS Other: All systems not noted in ROS Statement are negative. Past Medical History Past Medical History: No Reported History, Diabetes Mellitus Additional Past Medical History / Comment(s): neuropathy, foot drop History of Any Multi-Drug Resistant Organisms: None Reported Past Surgical History: Orthopedic Surgery, Tonsillectomy Additional Past Surgical History / Comment(s): left ankle Past Anesthesia/Blood Transfusion Reactions: No Reported Reaction Past Psychological History: Depression Smoking Status: Never smoker Past Alcohol Use History: None Reported, Rare Past Drug Use History: None Reported - Past Family History Mother Family Medical History: Hearing Disorder / Deafness Father Family Medical History: Cancer General Exam Limitations: no limitations General appearance: alert, in no apparent distress Head exam: Present: atraumatic, normocephalic Eye exam: Present: normal appearance, PERRL ENT exam: Present: normal exam Neck exam: Present: normal inspection. Absent: tenderness, meningismus Respiratory exam: Present: normal lung sounds bilaterally. Absent: respiratory distress, wheezes Cardiovascular Exam: Present: regular rate, normal rhythm GI/Abdominal exam: Present: soft. Absent: distended, tenderness, guarding Extremities exam: Present: normal inspection Neurological exam: Present: alert, oriented X3 Psychiatric exam: Present: depressed, flat affect, suicidal ideation Skin exam: Present: warm, dry, intact Course Vital Signs 03/15/24 03/15/24 03/15/24 16:33 16:36 18:54 Temperature 98.3 F 98.7 F Pulse Rate 80 70 80 Respiratory 20 19 18 Rate Blood Pressure 135/82 112/75 125/80 O2 Sat by Pulse 99 99 96 Oximetry - Reevaluation(s) Reevaluation #1: 03/15/24 16:57 Patient cleared for mental health evaluation Medical Decision Making - Medical Decision Making Was pt. sent in by a medical professional or institution (, [facility], [employer]AIGHTENER, urgent care, hospital, or assisted...) When possible be specific @ -No Did you speak to anyone other than the patient for history (EMS, parent, family, police, friend...)? What history was obtained from this source @ -No Did you review nursing and triage notes (agree or disagree)? Why? @ -I reviewed and agree with nursing and triage notes Were old charts reviewed (outside hosp., previous admission, EMS record, old EKG, old radiological studies, urgent care reports/EKG's, assisted records)? Report findings @ -No old charts were reviewed Differential Mental Health Depression, anxiety, bipolar, psychosis, schizophrenia, borderline personality, situational depression, adjustment disorder, behavioral disorder, brain tumor, malingering, substance abuse, encephalopathy, medication reaction, dementia, hypothyroidism, degenerative neurologic disorder, lupus.... This is not meant to be all-inclusive list EKG interpreted by me (3pts min.). @ -As above X-rays interpreted by me (1pt min.). @ -None done CT interpreted by me (1pt min.). @ -None done U/S interpreted by me (1pt. min.). @ -None done What testing was considered but not performed or refused? (CT, X-rays, U/S, labs)? Why? @ -None What meds were considered but not given or refused? Why? @ -None Did you discuss the management of the patient with other professionals (professionals i.e. , [facility], T[employer] SPOOL STRAIGHTENER, lab, RT, psych nurse, community mental health social worker, emergency vehicle operations instructor, teacher, product safety officer, briefcase sewer)? Give summary @Patient evaluated by EPS and felt to require inpatient admission Was smoking cessation discussed for >3mins.? @ -No Was critical care preformed (if so, how long)? @ -No Were there social determinants of health that impacted care today? How? (Homelessness, low income, unemployed, alcoholism, drug addiction, transportat ion, low edu. Level, literacy, decrease access to med. care, intermediate, rehab)? @ -No Was there de-escalation of care discussed even if they declined (Discuss DNR or withdrawal of care, Hospice)? DNR status @ -No What co-morbidities impacted this encounter? (DM, HTN, Smoking, COPD, CAD, Cancer, CVA, ARF, Chemo, Hep., AIDS, mental health diagnosis, sleep apnea, morbid obesity)? @ -[Depression Was patient admitted / discharged? Hospital course, mention meds given and route, prescriptions, significant lab abnormalities, going to OR and other pertinent info. @ -Patient medically cleared and evaluated by EPS and will be admitted to this institution for further psychiatric care. Undiagnosed new problem with uncertain prognosis? @ -[No Drug Therapy requiring intensive monitoring for toxicity (Heparin, Nitro, Insulin, Cardizem)? @ -No Were any procedures done? @ -No Diagnosis/symptom? @ -[Depression, suicidal ideation Acute, or Chronic, or Acute on Chronic? @ -Default Uncomplicated (without systemic symptoms) or Complicated (systemic symptoms)? @ -Default Side effects of treatment? @ -No Exacerbation, Progression, or Severe Exacerbation? @ -No Poses a threat to life or bodily function? How? (Chest pain, [place], [place], pneumonia, PE, COPD, DKA, ARF, appy, cholecystitis, CVA, Diverticulitis, Homicidal, Suicidal, threat to staff... and all critical care pts) @ -[Yes, self-harm - Lab Data Lab Results 03/15/24 Range/Units 16:42 Urine Opiates Screen Not Detected (NotDetected) Ur Oxycodone Screen Not Detected (NotDetected) Urine Methadone Screen Not Detected (NotDetected) Ur Barbiturates Screen Not Detected (NotDetected) U Tricyclic Antidepress Not Detected (NotDetected) Ur Phencyclidine Scrn Not Detected (NotDetected) Ur Amphetamines Screen Not Detected (NotDetected) U Methamphetamines Scrn Not Detected (NotDetected) U Benzodiazepines Scrn Not Detected (NotDetected) Urine Cocaine Screen Not Detected (NotDetected) U Marijuana (THC) Screen Not Detected (NotDetected) Disposition Clinical Impression: Depression, Suicidal ideation Disposition: ADMITTED IP TO THIS HOSP Condition: Stable Is patient prescribed a controlled substance at d/c from ED?: No Referrals: Louie Stockton MD [Primary Care Provider] - 1-2 days Time of Disposition: 21:11
[2024-03-15 19:39] LABS: Amphetamine Screen,Urine Not Detected (NotDetected); Barbiturate Screen,Urine Not Detected (NotDetected); Benzodiazepines Screen,Urine Not Detected (NotDetected); Cocaine Screen,Urine Not Detected (NotDetected); Methadone Screen, Urine Not Detected (NotDetected); Opiate Screen,Urine Not Detected (NotDetected); Oxycodone Screen, Urine Not Detected (NotDetected); Phencyclidine Screen,Urine Not Detected (NotDetected); Tricyclic Antidepressant,Urine Not Detected (NotDetected); Urn Cannabinoid Scrn Not Detected (NotDetected)
[2024-03-15 21:33] LABS: Glucose,Whole Blood 106 mg/dL (70-110)
[2024-03-15] MEDS ORDERED: MAG HYDROX/AL HYDROX/SIMETH 355 ML BOTTLE PO PRN (22:17)
[2024-03-15] MEDS ORDERED: IBUPROFEN 600 MG TAB PO PRN (22:17)
[2024-03-15] MEDS ORDERED: haloperidoL 5 MG TAB PO PRN (22:17)
[2024-03-15] MEDS ORDERED: LORazepam 2 MG/ML INJ IM PRN (22:17)
[2024-03-15] MEDS ORDERED: LORazepam 1 MG TAB PO PRN (22:17)
[2024-03-15] MEDS ORDERED: MAGNESIUM HYDROXIDE 2,400 MG/30 ML CUP PO PRN (22:17)
[2024-03-15] MEDS ORDERED: HALOPERIDOL LACTATE 5 MG/ML 1 ML VIAL IM PRN (22:17)
[2024-03-15] MEDS: NICOTINE 14MG/24HR PATCH TRANSDERM SCH (23:10)
[2024-03-15 23:55] LABS: Appearance,Urine Clear (Clear); Bilirubin,Urine Negative (Negative); Blood,Urine Negative (Negative); Color,Urine Colorless; Glucose,Urine (UA) Negative (Negative); Ketones,Urine Negative (Negative); Leukocyte Esterase,Urine Negative (Negative); Nitrite,Urine Negative (Negative); Protein,Urine Negative (Negative); Specific Gravity,Urine 1.019 (1.001-1.035); Urobilinogen,Urine <2.0 mg/dL (<2.0)
[2024-03-16 06:34] LABS: ALT 22 U/L (4-49); AST 22 U/L (17-59); African American GFR (CKD) >90 (>60 ml/min/1.73 sqM); Albumin 3.7 g/dL (3.5-5.0); Alkaline Phosphatase 72 U/L (38-126); Anion Gap 3 mmol/L; Bilirubin, Delta 0.1 mg/dL (0.0-0.2); Bilirubin,Unconjugated 0.7 mg/dL (0.0-1.1); Blood Urea Nitrogen 14 mg/dL (9-20); Calcium 8.8 mg/dL (8.4-10.2); Carbon Dioxide 29 mmol/L (22-30); Chloride 106 mmol/L (98-107); Glucose 98 mg/dL (74-99); Non-African American GFR(CKD) >90 (>60 ml/min/1.73 sqM); Potassium 4.2 mmol/L (3.5-5.1); Sodium 138 mmol/L (137-145); Total Bilirubin 0.8 mg/dL (0.2-1.3); Total Protein 6.3 g/dL (6.3-8.2)
[2024-03-16 06:37] LABS: Basophils % (A) 0 %; Eosinophils # (A) 0.1 k/uL (0-0.7); Eosinophils % (A) 2 %; HCT 43.4 % (39.0-53.0); HGB 14.2 gm/dL (13.0-17.5); Lymphocytes # (A) 2.4 k/uL (1.0-4.8); Lymphocytes % (A) 29 %; MCH 32.7 pg (25.0-35.0); MCHC 32.7 g/dL (31.0-37.0); MCV 100.1 fL (80.0-100.0); Macrocytosis Slight; Mean Platelet Volume 7.6; Monocytes # (A) 0.4 k/uL (0-1.0); Monocytes % (A) 5 %; Neutrophils # (A) 5.2 k/uL (1.3-7.7); Neutrophils % (A) 63 %; Platelet Count 184 k/uL (150-450); RBC 4.34 m/uL (4.30-5.90); RDW 15.3 % (11.5-15.5); WBC 8.3 k/uL (3.8-10.6)
[2024-03-16 08:23] LABS: Glucose,Whole Blood 103 mg/dL (70-110)
[2024-03-16 12:42] LABS: Glucose,Whole Blood 100 mg/dL (70-110)
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
[2024-03-16] MEDS: ESCITALOPRAM 10 MG TAB PO SCH (13:21)
[2024-03-16] MEDS: PANTOPRAZOLE 40 MG TABLET PO SCH (13:21)
[2024-03-16 16:24] LABS: Chol/HDL Ratio 3.78 Ratio; LDL Cholesterol,Calculated 107.8 mg/dL (0.0-131.0); VLDL Calculation 15.78 mg/dL (5.00-40.00)
[2024-03-16] MEDS: ACETAMINOPHEN TAB 325 MG TAB PO PRN (16:58)
[2024-03-16 17:52] LABS: Glucose,Whole Blood 126 mg/dL (70-110)
[2024-03-16 21:14] LABS: Glucose,Whole Blood 126 mg/dL (70-110)
[2024-03-16] MEDS: traZODone HCL 50 MG TAB PO PRN (22:14)
[2024-03-17 08:13] LABS: Glucose,Whole Blood 105 mg/dL (70-110)
--- NOTE | 2024-03-17 12:23 | P.PN ---
Progress Note - Text Progress Note Date: 03/17/24 Interval history: Patient was seen today for psychiatric follow up. Patient claims that he is d oing a bit better today with regards to his mood and anxiety. States that he spoke with his girlfriend over the phone, that went well. He has not been going to groups yet, was encouraged to do so. States that he feels that he overslept last night with the higher dose of trazodone, requested to have a decrease. Claims that his appetite is fair at this time. At this time he is denying any suicidal homicidal ideations intent or plan, denying any auditory or visual [place]. MENTAL STATUS EXAM: General Appearance: Patient appears to be stated age is alert, directable, and attempts to cooperate. Patient appears to have improving mildly hygiene and grooming, wearing glasses. Disheveled. Casually dressed, wearing glasses. Overweight Behavior: Patient is seated without any agitated behavior. Speech: Patient's speech is fluent and nonpressured. Mood/Affect: Patient reports their mood is improving mildly, affect is congruent and constricted. Suicidality/Homicidality: Patient denies having any homicidal ideation intent or plan. Denies any suicidal ideations intent or plan Perceptions: Patient denies any visual hallucinations [and denies any auditory hallucinations Though content/process: There is no evidence of any delusional thought content and thought process is linear and goal-directed. [place] Memory and concentration: AOX3, grossly intact for the purposes of this session Judgment and insight: Poor, improving mildly IMPRESSIONS: major depressive disorder without psychotic features PLAN: -Patient is admitted under voluntary status to MHU for stabilization of p sychiatric symptoms and safety. Patient has signed adult voluntary form and] medication consent and is placed in patient's chart. -Medications : Lexapro 10mg daily, for depression/anxiety, decrease trazodone 25 mg qhs for sleep -Ativan and Haldol PRN for agitation/aggression -NRT - nonsmoker -SW on board for discharge planning. Encourage patient to participate in groups to work on coping skills. likely discharge friday if patient is improving.
[2024-03-17 12:34] LABS: Glucose,Whole Blood 94 mg/dL (70-110)
[2024-03-17 17:33] LABS: Glucose,Whole Blood 125 mg/dL (70-110)
[2024-03-17 20:49] LABS: Glucose,Whole Blood 88 mg/dL (70-110)
--- NOTE | 2024-03-17 20:59 | P.MDCNMH ---
<JacquelineArielmaryjane - Last Filed: 03/17/24 22:07> History of Present Illness H&P Date: 03/17/24 History of present illness; 38-year-old male with GERD presents with complaints of suicidal thoughts with plan to commit suicide with fentanyl. Reports he called his mother 2 days ago saying he wanted to sleep and not wake up and had a plan of going to [place] to buy fentanyl pills in order to overdose. Patient is sitting up in bed resting with no complaints of pain. Denies experiencing chest discomfort, shortness of breath, fever, chills, cough, nausea, vomiting, abdominal pain, diarrhea. Social history: Denies illicit substance, tobacco, or alcohol use. REVIEW OF SYSTEMS: All systems reviewed, pertinent positives and negatives noted in HPI. All other symptoms are negative. PHYSICAL EXAMINATION: Vitals reviewed GENERAL: No acute distress. Well developed, well nourished. HEENT: Pupils are round and equally reacting to light. EOMI. No scleral icterus. Normocephalic, atraumatic. CARDIOVASCULAR: S1 and S2 present. No murmurs, rubs, or gallops. PULMONARY: Chest is clear to auscultation, no wheezing, rhonchi, or crackles. ABDOMEN: Soft, nontender, nondistended, normoactive bowel sounds. No palpable organomegaly. MUSCULOSKELETAL: No apparent joint swelling and deformities. EXTREMITIES: No apparent cyanosis, clubbing, or pedal edema. NEUROLOGICAL: The patient is alert and oriented x3, Gross neurological exam ination did not reveal any focal deficits. 5/5 strength bilateral UE and LE. Cranial nerves II through XII intact. SKIN: No apparent rashes. Assessment and plan 38-year-old male with GERD presents with complaints of suicidal thoughts with plan to commit suicide with fentanyl. Internal medicine is consulted for medical management. Chronic Medical Conditions #GERD: -Continue Protonix 40 mg p.o. daily # Major depressive disorder without psychotic features -Psychiatric medicine management per primary psychiatry team Code status: Full code Patient is stable from medical stand point Past Medical History Past Medical History: Diabetes Mellitus Additional Past Medical History / Comment(s): neuropathy, foot drop History of Any Multi-Drug Resistant Organisms: None Reported Past Surgical History: Orthopedic Surgery, Tonsillectomy Additional Past Surgical History / Comment(s): left ankle Past Anesthesia/Blood Transfusion Reactions: No Reported Reaction Smoking Status: Never smoker - Past Family History Mother Family Medical History: Hearing Disorder / Deafness Father Family Medical History: Cancer Medications and Allergies Home Medications Medication Instructions Recorded Confirmed Type Omeprazole 40 mg PO DAILY 02/20/22 03/15/24 History Escitalopram [Lexapro] 5 mg PO DAILY 03/15/24 03/15/24 History Ibuprofen [Motrin] 800 mg PO Q6H PRN 03/15/24 03/15/24 History Allergies Allergy/AdvReac Type Severity Reaction Status Date / Time No Known Allergies Allergy Verified 03/15/24 17:57 Physical Exam Vitals: Vital Signs Temp Pulse Resp BP Pulse Ox 03/17/24 06:50 97.3 F L 48 L 16 108/70 97 Results CBC & Chem 7: 03/16/24 05:56 03/16/24 05:56 Labs: Abnormal Lab Results - Last 24 Hours (Table) 03/16/24 03/17/24 Range/Units 21:13 17:30 POC Glucose (mg/dL) 126 H 125 H (70-110) mg/dL <Manish St M - Last Filed: 03/17/24 23:13> Physical Exam Vitals: Vital Signs Temp Pulse Resp BP Pulse Ox 03/17/24 06:50 97.3 F L 48 L 16 108/70 97 Cranial Nerve Examination - Cranial Nerves Cranial Nerve II- Optic: Intact Cranial Nerve III- Oculomotor: Intact Cranial Nerve IV- Trochlear: Intact Cranial Nerve V- Trigeminal: Intact Cranial Nerve - Abducens: Intact Cranial Nerve VII- Facial: Intact Cranial Nerve VIII- Auditory: Intact Cranial Nerve IX- Glossopharyngeal: Intact Cranial Nerve X- Vagus: Intact Cranial Nerve XI- Accessory: Intact Cranial Nerve XII- Hypoglossal: Intact Results CBC & Chem 7: 03/16/24 05:56 03/16/24 05:56 Labs: Abnormal Lab Results - Last 24 Hours (Table) 03/17/24 Range/Units 17:30 POC Glucose (mg/dL) 125 H (70-110) mg/dL Assessment and Plan Assessment: I have seen and evaluated the patient today. I Discussed the case with the resident and agree with the resident's findings I edited the assessment and plan as necessary as documented in the resident's note.
[2024-03-17] MEDS: traZODone HCL 50 MG TAB PO SCH (22:41)
[2024-03-18 07:02] VITALS: RESP 14; TEMP 98
[2024-03-18 07:54] LABS: Glucose,Whole Blood 98 mg/dL (70-110)
--- NOTE | 2024-03-18 10:26 | P.PN ---
Progress Note - Text Progress Note Date: 03/18/24 Interval history: Patient was seen today for psychiatric follow up. Patient claims that he is do ing a bit better today, he did not endorse any overnight issues. Claims that he feels the medications have been helping with his mood and anxiety. Claims that he is still not been going to many groups. He spoke about possibly going home tomorrow. He likes the decreased dose of trazodone at nighttime and claims that he is feeling less groggy today. Appetite is fair. At this time he is denying any suicidal homicidal ideations intent or plan, denying any auditory or visual loose Nations. MENTAL STATUS EXAM: General Appearance: Patient appears to be stated age is alert, directable, and attempts to cooperate. Patient appears to have improving mildly hygiene and grooming, wearing glasses. Casually dressed, wearing glasses. Overweight Behavior: Patient is seated without any agitated behavior. Speech: Patient's speech is fluent and nonpressured. Fairly concrete Mood/Affect: Patient reports their mood is improving mildly, affect is congruent and constricted. Improving mildly Suicidality/Homicidality: Patient denies having any homicidal ideation intent or plan. Denies any suicidal ideations intent or plan Perceptions: Patient denies any visual hallucinations [and denies any auditory hallucinations Though content/process: There is no evidence of any delusional thought content and thought process is linear and goal-directed. Varina Memory and concentration: AOX3, grossly intact for the purposes of this session Judgment and insight: improving mildly IMPRESSIONS: major depressive disorder without psychotic features PLAN: -Patient is admitted under voluntary status to MHU for stabilization of psychiatric symptoms and safety. Patient has signed adult voluntary form and] medication consent and is placed in patient's chart. -Medications : Lexapro 10mg daily, for depression/anxiety, trazodone 25 mg qhs for sleep -Ativan and Haldol PRN for agitation/aggression -NRT - nonsmoker -SW on board for discharge planning. Encourage patient to participate in groups to work on coping skills. likely discharge friday if patient is improving.
[2024-03-18 12:49] LABS: Glucose,Whole Blood 97 mg/dL (70-110)
[2024-03-18 17:31] LABS: Glucose,Whole Blood 109 mg/dL (70-110)
[2024-03-18 20:01] LABS: Glucose,Whole Blood 112 mg/dL (70-110)
[2024-03-19 06:46] VITALS: BP 112/71; PULSE 65
[2024-03-19 07:55] LABS: Glucose,Whole Blood 112 mg/dL (70-110)
--- NOTE | 2024-03-19 11:04 | P.DS ---
Providers Date of admission: 03/15/24 22:15 Expected date of discharge: 03/19/24 Attending physician: Derek Mckay MD Consults: 03/15/24 22:17 Consult Physician Routine Consulting Provider: Maryanne Burton Consult Reason/Comments: H & P Do you want consulting provider notified?: Yes, Notify in am Primary care physician: Louie Stockton - Discharge Diagnosis(es) (1) Major depressive disorder without psychotic features Current Visit: Yes Status: Acute Priority: High Hospital Course: Admission HPI: Admission note was completed by promotion writer "Patient presented to the hospital on 03/15. As per EPS note, "Patient brought self to ER and petitioned by PD for suicidal ideation with a plan to go to [place] to get Fentanyl to overdose. Patient assessed in ER13 from [id number]. Patient verbalizes same suicidal plan when inquired about arrival to ED. Patient states he has been feeling overwhelmed because his mother is in [place] but she continues to try to come home and he used to be her caregiver and she cannot complete her ADLs on her own. Patient verbalizes he has also recently been getting into arguments with his girlfriend. Patient states he does not work. Patient denies homicidal ideation. Patient denies auditory or visual hallucinations. Patient denies paranoia and no delusional statements noted on assessment. Patient appears depressed, hopeless, and helpless. Patient verbalizes previous suicide attempt by drinking cleaner. Patient has public guardian. Upon today's assessment, he states that he was very depressed because he felt no one was helping him with essential needs, and his mother is trying to come back home, and he can not take care of her any longer. He states that he wanted to go to [place] to get fentanyl pills to overdose, however, he does not have gas to get to [place], and he does not know where to go to get these drugs. He states he feels helpless and hopeless. He states he gets good sleep, and reports a good appetite. Patient currently denies any suicidal or homicidal ideations intent or plan. At this time patient denies any auditory or visual hallucinations. Patient denies any flight of ideas racing thoughts and increased in goal directed behavior. Patient denies using any recreational drugs or cigarettes. Drinks alcohol rarely." Hospital course: Upon admission to the unit patient was directable and agreeable to commence treatment and signed adult voluntary form. Patient got along well with other patients on the unit and followed unit protocol. Patient was compliant with the medications and denied any side effects throughout hospital course. Patient was started on Lexapro increased to dose of 10 mg daily for depression/anxiety, trazodone 25 mg nightly for sleep/mood. Patient spoke of his stressors and engaged in therapy both group and individual. Patient was also seen by medical team for history and physical exam. Throughout the course of the hospitalization patient gradually improved with regards to mood, anxiety, sleep and became more future oriented with improved insight and judgment. On the day of discharge patient denied any suicidal or homicidal ideations intent or plan denied any auditory or visual hallucinations. Patient endorsed wanting to live for his health and family. The patient denied any access to guns or weapons. Patient denied any paranoia and did not endorse any delusions. Patient does not have a significant history of substance abuse and was counseled on abstaining f rom all substances including alcohol and marijuana. Patient was also counseled on the medications and need for regular compliance and was encouraged to follow- up with their outpatient appointment for mental health and also for primary care. Prior to discharge a family meeting will be arranged by protective services social worker to answer any questions and ensure safety upon discharge. Patient will be discharged back home today with [facility] follow-up. Mental status exam: General Appearance: Patient appears to be overweight, has a lerner, wearing glasses, stated age is alert, pleasant, and cooperative. Patient is in no acute distress and has improved hygiene and grooming Behavior: Patient is calmly seated without any agitated behavior. Speech: Patient's speech is fluent and nonpressured. Mood/Affect: Patient reports their mood is "better", affect is congruent and euthymic. Suicidality/Homicidality: Patient denies having any suicidal or homicidal ideation intent or plan. Perceptions: Patient denies any auditory or visual hallucinations. Though content/process: There is no evidence of any delusional thought content and thought process is linear and goal-directed. Memory and concentration: AOX3, grossly intact for the purposes of this session. Can spell "WORLD" backwards correctly. Judgment and insight: Chronically poor, however has improved with guarded prognosis Impression: major depressive disorder without psychotic features Plan: -Continue with discharge today as patient has improved and stabilized psychiatrically and is not currently an imminent threat to himself and/or others. -Continue medications: Lexapro 10 mg daily for mood/anxiety, trazodone 25 mg nightly for sleep/mood. -Patient was counseled on the need for medication compliance and appropriate follow-up at mental health and also primary care for medical issues. Patient verbalized understanding and agreed. -Social work to arrange for and conduct family meeting to ensure safety upon discharge and answer any questions/concerns. Social work also to arrange for patients follow up appointments with [facility] for psychiatric care along with follow up with primary care provider. -Patient counseled on abstaining from recreational drugs and marijuana and alcohol. Was informed/educated on the adverse effects on their physical and mental health. Patient verbally agreed and understood. -Patient was instructed to return to the hospital or seek immediate medical care if their psychiatric or medical symptoms do worsen or reoccur. Allergies Allergy/AdvReac Type Severity Reaction Status Date / Time No Known Allergies Allergy Verified 03/15/24 17:57 Laboratory Results WBC 8.3 k/uL (3.8-10.6) 03/16/24 05:56 RBC 4.34 m/uL (4.30-5.90) 03/16/24 05:56 Hgb 14.2 gm/dL (13.0-17.5) 03/16/24 05:56 Hct 43.4 % (39.0-53.0) 03/16/24 05:56 MCV 100.1 fL (80.0-100.0) H 03/16/24 05:56 MCH 32.7 pg (25.0-35.0) 03/16/24 05:56 MCHC 32.7 g/dL (31.0-37.0) 03/16/24 05:56 RDW 15.3 % (11.5-15.5) 03/16/24 05:56 Plt Count 184 k/uL (150-450) 03/16/24 05:56 MPV 7.6 03/16/24 05:56 Neutrophils % 63 % 03/16/24 05:56 Lymphocytes % 29 % 03/16/24 05:56 Monocytes % 5 % 03/16/24 05:56 Eosinophils % 2 % 03/16/24 05:56 Basophils % 0 % 03/16/24 05:56 Neutrophils # 5.2 k/uL (1.3-7.7) 03/16/24 05:56 Lymphocytes # 2.4 k/uL (1.0-4.8) 03/16/24 05:56 Monocytes # 0.4 k/uL (0-1.0) 03/16/24 05:56 Eosinophils # 0.1 k/uL (0-0.7) 03/16/24 05:56 Basophils # 0.0 k/uL (0-0.2) 03/16/24 05:56 Macrocytosis Slight 03/16/24 05:56 Sodium 138 mmol/L (137-145) 03/16/24 05:56 Potassium 4.2 mmol/L (3.5-5.1) 03/16/24 05:56 Chloride 106 mmol/L (98-107) 03/16/24 05:56 Carbon Dioxide 29 mmol/L (22-30) 03/16/24 05:56 Anion Gap 3 mmol/L 03/16/24 05:56 BUN 14 mg/dL (9-20) 03/16/24 05:56 Creatinine 0.80 mg/dL (0.66-1.25) 03/16/24 05:56 Est GFR (CKD-EPI)AfAm >90 (>60 ml/min/1.73 sqM) 03/16/24 05:56 Est GFR (CKD-EPI)NonAf >90 (>60 ml/min/1.73 sqM) 03/16/24 05:56 Glucose 98 mg/dL (74-99) 03/16/24 05:56 POC Glucose (mg/dL) 112 mg/dL (70-110) H 03/19/24 07:52 POC Glu It Application Development Manager ID Jaylen Medina 03/19/24 07:[address] Glu mg/dL 117 mg/dL 03/16/24 05:56 Hemoglobin A1c 5.7 % (<=6.0) 03/16/24 05:56 Calcium 8.8 mg/dL (8.4-10.2) 03/16/24 05:56 Total Bilirubin 0.8 mg/dL (0.2-1.3) 03/16/24 05:56 Conjugated Bilirubin 0.0 mg/dL (0.0-0.3) 03/16/24 05:56 Unconjugated Bilirubin 0.7 mg/dL (0.0-1.1) 03/16/24 05:56 Delta Bilirubin 0.1 mg/dL (0.0-0.2) 03/16/24 05:56 AST 22 U/L (17-59) 03/16/24 05:56 ALT 22 U/L (4-49) 03/16/24 05:56 Alkaline Phosphatase 72 U/L (38-126) 03/16/24 05:56 Total Protein 6.3 g/dL (6.3-8.2) 03/16/24 05:56 Albumin 3.7 g/dL (3.5-5.0) 03/16/24 05:56 Triglycerides 78.90 mg/dL (0.00-149.00) 03/16/24 05:56 Cholesterol 168.00 mg/dL (0.00-200.00) 03/16/24 05:56 LDL Cholesterol, Calc 107.8 mg/dL (0.0-131.0) 03/16/24 05:56 VLDL Cholesterol, Calc 15.78 mg/dL (5.00-40.00) 03/16/24 05:56 HDL Cholesterol 44.40 mg/dL (40.00-60.00) 03/16/24 05:56 Cholesterol/HDL Ratio 3.78 Ratio 03/16/24 05:56 TSH 1.540 mIU/L (0.465-4.680) 03/16/24 05:56 Urine Color Colorless 03/15/24 16:42 Urine Appearance Clear (Clear) 03/15/24 16:42 Urine pH 6.0 (5.0-8.0) 03/15/24 16:42 Ur Specific [place] 1.019 (1.001-1.035) 03/15/24 16:42 Urine Protein Negative (Negative) 03/15/24 16:42 Urine Glucose (UA) Negative (Negative) 03/15/24 16:42 Urine Ketones Negative (Negative) 03/15/24 16:42 Urine Blood Negative (Negative) 03/15/24 16:42 Urine Nitrite Negative (Negative) 03/15/24 16:42 Urine Bilirubin Negative (Negative) 03/15/24 16:42 Urine Urobilinogen <2.0 mg/dL (<2.0) 03/15/24 16:42 Ur Leukocyte Esterase Negative (Negative) 03/15/24 16:42 Urine Opiates Screen Not Detected (NotDetected) 03/15/24 16:42 Ur Oxycodone Screen Not Detected (NotDetected) 03/15/24 16:42 Urine Methadone Screen Not Detected (NotDetected) 03/15/24 16:42 Ur Barbiturates Screen Not Detected (NotDetected) 03/15/24 16:42 U Tricyclic Antidepress Not Detected (NotDetected) 03/15/24 16:42 Ur Phencyclidine Scrn Not Detected (NotDetected) 03/15/24 16:42 Ur Amphetamines Screen Not Detected (NotDetected) 03/15/24 16:42 U Methamphetamines Scrn Not Detected (NotDetected) 03/15/24 16:42 U Benzodiazepines Scrn Not Detected (NotDetected) 03/15/24 16:42 Urine Cocaine Screen Not Detected (NotDetected) 03/15/24 16:42 U Marijuana (THC) Screen Not Detected (NotDetected) 03/15/24 16:42 Influenza Type A (PCR) Not Detected (Not Detectd) 03/15/24 20:58 Influenza Type B (PCR) Not Detected (Not Detectd) 03/15/24 20:58 RSV (PCR) Not Detected (Not Detectd) 03/15/24 20:58 SARS-CoV-2 (PCR) Not Detected (Not Detectd) 03/15/24 20:58 Vital Signs Temp 98.0 F 03/18/24 06:00 Pulse 65 03/19/24 06:00 Resp 14 03/19/24 06:00 BP 112/71 03/19/24 06:00 Pulse Ox 98 03/19/24 06:00 FiO2 Patient Condition at Discharge: Stable Plan - Discharge Summary Discharge Rx Participant: No New Discharge Prescriptions: New traZODone HCL [Desyrel] 25 mg PO HS PRN 28 Days #14 tab PRN Reason: Insomnia Ibuprofen [Motrin] 600 mg PO Q6HR PRN tab PRN Reason: Moderate Pain (Scale 4 To 6) Escitalopram [Lexapro] 10 mg PO DAILY 30 Days #30 tab Acetaminophen Tab [Tylenol] 650 mg PO Q4HR PRN tab PRN Reason: Mild Pain (Scale 1 To 3) Continue Omeprazole 40 mg PO DAILY 30 Days #30 cap Discontinued Escitalopram [Lexapro] 5 mg PO DAILY Ibuprofen [Motrin] 800 mg PO Q6H PRN PRN Reason: Pain Or Fever > 100.5 Discharge Medication List Acetaminophen Tab [Tylenol] 650 mg PO Q4HR PRN tab 03/19/24 [Rx] Escitalopram [Lexapro] 10 mg PO DAILY 30 Days #30 tab 03/19/24 [Rx] Ibuprofen [Motrin] 600 mg PO Q6HR PRN tab 03/19/24 [Rx] Omeprazole 40 mg PO DAILY 30 Days #30 cap 03/19/24 [Rx] traZODone HCL [Desyrel] 25 mg PO HS PRN 28 Days #14 tab 03/19/24 [Rx] Follow up Appointment(s)/Referral(s): Louie Stockton MD [Primary Care Provider] - 1-2 days Patient Instructions/Handouts: Depression (DC) Activity/Diet/Wound Care/Special Instructions: Avoid the use of street drugs and alcohol. Take all medications as prescribed. When you are in need of refills on your medications, please contact your medical provider and/or outpatient psychiatrist/provider to have this done. Please go to your scheduled outpatient appointment for aftercare treatment. If symptoms return or become worse, call the crisis line at and/or go to the nearest emergency room for evaluation. National Suicide Hotline 988 Discharge Disposition: HOME SELF-CARE
[2024-03-19 12:26] LABS: Glucose,Whole Blood 115 mg/dL (70-110)
== END 2024-03-19 15:52 | disposition home or self-care (01) | DRG 881 ==
LOC: EC 16:14 → SUPCPDRO 16:14 → 3MHU 22:15
PROVIDERS: ADMIT Psychiatry & Neurology Psychiatry; ATTEND Psychiatry & Neurology Psychiatry
DX: F32.9 Major depressive disorder, single episode, unspecified (principal); R45.851 Suicidal ideations; E66.3 Overweight; E11.9 Type 2 diabetes mellitus without complications; M21.379 Foot drop, unspecified foot; E11.42 Type 2 diabetes mellitus with diabetic polyneuropathy; F41.9 Anxiety disorder, unspecified; K21.9 Gastro-esophageal reflux disease without esophagitis; Z79.899 Other long term (current) drug therapy; Z91.51 Personal history of suicidal behavior
CPT/HCPCS: 36415; 80053; 80061; 80306; 81003; 82075; 82248; 83036; 84443; 85025; 87636; 99285

== ENCOUNTER 2024-04-22 00:05 | Emergency (ER) | payer MEDICARE, OTHER ==
[2024-04-22] MEDS: IBUPROFEN 800 MG TAB PO STA (01:04)
--- NOTE | 2024-04-22 03:14 | ED ---
General Adult HPI - General Chief complaint: Extremity Injury, Lower Stated complaint: Fall- left leg injury Time Seen by Provider: 04/22/24 00:55 Source: patient, RN notes reviewed, old records reviewed Mode of arrival: wheelchair Limitations: physical limitation - History of Present Illness Initial comments: Patient is a 38-year-old male who presents emergency department complaining of left knee pain following a fall. Fell greater than 24 hours ago. States his left knee gave out on him. Does chronically wear lower extremity braces. D enied his head. History of diabetes. Complaining of left knee swelling as well as pain. Presents for further evaluation at this time. States he was attempting to help his mother when he suffered a mechanical fall. - Related Data Previous Rx's Medication Instructions Recorded Acetaminophen Tab [Tylenol] 650 mg PO Q4HR PRN tab 03/19/24 Escitalopram [Lexapro] 10 mg PO DAILY 30 Days #30 tab 03/19/24 Ibuprofen [Motrin] 600 mg PO Q6HR PRN tab 03/19/24 Omeprazole 40 mg PO DAILY 30 Days #30 cap 03/19/24 traZODone HCL [Desyrel] 25 mg PO HS PRN 28 Days #14 tab 03/19/24 Allergies Allergy/AdvReac Type Severity Reaction Status Date / Time No Known Allergies Allergy Verified 04/22/24 00:18 Review of Systems ROS Statement: Those systems with pertinent positive or pertinent negative responses have been documented in the HPI. Review of Systems: CONST: Denies fever EYES: Denies blurry vision ENT: Denies nasal congestion C/V: Denies Chest pain RESP: Denies shortness of breath GI: Denies abdominal pain : Denies dysuria SKIN: Denies rash. MSK: Endorses left knee pain NEURO: Denies headache ROS Other: All systems not noted in ROS Statement are negative. Past Medical History Past Medical History: Diabetes Mellitus Additional Past Medical History / Comment(s): neuropathy, foot drop History of Any Multi-Drug Resistant Organisms: None Reported Past Surgical History: Orthopedic Surgery, Tonsillectomy Additional Past Surgical History / Comment(s): left ankle Past Anesthesia/Blood Transfusion Reactions: No Reported Reaction Past Psychological History: Depression Smoking Status: Never smoker Past Alcohol Use History: None Reported Past Drug Use History: None Reported - Past Family History Mother Family Medical History: Hearing Disorder / Deafness Father Family Medical History: Cancer General Exam - General Exam Comments Initial Comments: General: Appears in no acute distress. HEAD: Normal with no signs of head trauma. EYES: EOMI. ENT: Hearing grossly intact. RESPIRATORY: No respiratory distress. C/V: Regular rate and rhythm. ABD: Abdomen is nondistended. EXT: Left knee swelling and pain on palpation. Reduced range of motion secondary to pain. No obvious deformities. Neurovascularly intact throughout. SKIN: No rashes or lesions observed on exposed skin. NEURO: Alert and oriented. Limitations: physical limitation Course Vital Signs 04/22/24 04/22/24 00:19 04:35 Temperature 98.4 F 98.2 F Pulse Rate 78 71 Respiratory 16 17 Rate Blood Pressure 124/79 118/81 O2 Sat by Pulse 98 98 Oximetry Medical Decision Making - Medical Decision Making Was pt. sent in by a medical professional or institution (Dr. PA, STABILIZER OPERATOR, urgent care, hospital, or fpc...) When possible be specific @ -No Did you speak to anyone other than the patient for history (EMS, parent, family, police, friend...)? What history was obtained from this source @ -No Did you review nursing and triage notes (agree or disagree)? Why? @ -I reviewed and agree with nursing and triage notes Were old charts reviewed (outside hosp., previous admission, EMS record, old EKG, old radiological studies, urgent care reports/EKG's, fpc records)? Report findings @ -No old charts were reviewed Differential Diagnosis (chest pain, altered mental status, abdominal pain women, abdominal pain men, vaginal bleeding, weakness, fever, dyspnea, syncope, headache, dizziness, GI bleed, back pain, seizure, CVA, palpatations, mental health, musculoskeletal)? @ -Differential Musculoskeletal Muscular strain, contusion, ligament sprain, fracture, arthritis, septic arthritis, bursitis, cellulitis, muscle spasm, nerve compression, DVT, arterial occlusion, herpes zoster, electrolyte abnormality, tumor.... This is not meant to be in all inclusive list EKG interpreted by me (3pts min.). @ -None done X-rays interpreted by me (1pt min.). @ -None done CT interpreted by me (1pt min.). @ -None done U/S interpreted by me (1pt. min.). @ -None done What testing was considered but not performed or refused? (CT, X-rays, U/S, labs)? Why? @ -None What meds were considered but not given or refused? Why? @ -None Did you discuss the management of the patient with other professionals (professionals i.e. , PA, STABILIZER OPERATOR, lab, RT, psych nurse, delinquency prevention social worker, restaurant culinary manager, teacher, personnel officer, registered nurse hh case manager)? Give summary @ -No Was smoking cessation discussed for >3mins.? @ -No Was critical care preformed (if so, how long)? @ -No Were there social determinants of health that impacted care today? How? (Homelessness, low income, unemployed, alcoholism, drug addiction, transportation, low edu. Level, literacy, decrease access to med. care, [facility], rehab)? @ -No Was there de-escalation of care discussed even if they declined (Discuss DNR or withdrawal of care, Hospice)? DNR status @ -No What co-morbidities impacted this encounter? (DM, HTN, Smoking, COPD, CAD, Cancer, CVA, ARF, Chemo, Hep., AIDS, mental health diagnosis, sleep apnea, morbid obesity)? @ -None Was patient admitted / discharged? Hospital course, mention meds given and route, prescriptions, significant lab abnormalities, going to OR and other pertinent info. @ -Presents with a fall with left knee pain. Fall occurred over 24 hours ago. Reduced range of motion of left knee and swelling and pain on palpation. Will obtain x-ray. Patient given Motrin. Patient given ice pack. Vital signs within acceptable limits. He was in agreement this plan. Knee x-ray reveals no obvious acute injury. There are posterior loose bodies present which are likely not acute at this time. No obvious fracture or subluxation. I discussed results with the patient. He will be discharged home at this time. Discharged home with knee immobilizer and crutches as well as instructions to follow-up with orthopedic surgery. He was in agreement this plan. Patient can use [id number] analgesia medications as needed. Recommended icing, elevation of the left lower extremity. I instructed the patient to follow up with their PCP in the next 1-3 days.. I explained that the patient should return to the emergency department if they experience any worsening symptoms. Strict return precautions were discussed with the patient. The patient expressed understanding of these instructions. I answered all questions that the patient had. The patient was discharged home in good condition with their prescriptions and follow up information. Undiagnosed new problem with uncertain prognosis? @ -No Drug Therapy requiring intensive monitoring for toxicity (Heparin, Nitro, Insulin, Cardizem)? @ -No Were any procedures done? @ -No Diagnosis/symptom? @ -Left knee sprain Acute, or Chronic, or Acute on Chronic? @ -Acute Uncomplicated (without systemic symptoms) or Complicated (systemic symptoms)? @ -Uncomplicated Side effects of treatment? @ -None Exacerbation, Progression, or Severe Exacerbation] @ -No Poses a threat to life or bodily function? @ -Unlikely Disposition Clinical Impression: Left knee sprain Disposition: HOME SELF-CARE Condition: Good Instructions (If sedation given, give patient instructions): Knee Sprain (ED) Additional Instructions: Follow-up with orthopedics regarding your knee sprain. Return if any worsening symptoms. Attempt to remain nonweightbearing. Use knee immobilizer for stability. Is patient prescribed a controlled substance at d/c from ED?: No Referrals: Louie Stockton MD [Primary Care Provider] - 1-2 days Víctor Torres DO [Doctor of Osteopathic Medicine] - 1-2 days Time of Disposition: 04:00
--- NOTE | 2024-04-22 03:56 | XR ---
EXAM: XR Left Knee, 3 Views CLINICAL HISTORY: ITS.REASON XR Reason: pain TECHNIQUE: Three views of the left knee. COMPARISON: No relevant prior studies available. FINDINGS: Bones/joints: Large posterior loose bodies, measuring 2.4 x 1.2 cm and 2.3 x 1.16 cm. Diffuse osseous demineralization. No acute fracture or subluxation. Soft tissues: Unremarkable. IMPRESSION: No acute fracture or subluxation. Posterior loose bodies.
[2024-04-22 04:37] VITALS: BP 118/81; PULSE 71; RESP 17; TEMP 98.2
== END 2024-04-22 04:36 | disposition home or self-care (01) ==
LOC: EC 00:05
DX: S83.92XA Sprain of unspecified site of left knee, initial encounter (principal); W18.2XXA Fall in (into) shower or empty bathtub, initial encounter
CPT/HCPCS: 73562; 99283; L1830

== ENCOUNTER 2024-08-16 16:03 | Emergency (ER) | payer MEDICARE, OTHER ==
[2024-08-16 16:10] VITALS: PULSE 92
--- NOTE | 2024-08-16 17:22 | XR ---
EXAMINATION TYPE: XR toes RT DATE OF EXAM: 08/16/2024 5:05 PM INDICATION: Patient age:Male; 38 years old; Reason for study: deep laceration; PHH. pain COMPARISON: Right foot radiograph 08/25/2021 TECHNIQUE: The third toe of right foot was examined in the AP, oblique, and lateral projections. FINDINGS: No evidence of any acute osseous pathology. No evidence of soft tissue swelling. Joints are preserve d. No radiopaque foreign body. IMPRESSION: No evidence of acute fracture. [facility], , 08/16/2024 5:19 PM
[2024-08-16] MEDS: LIDOCAINE 1% INJ 10MG/ML (5 ML VIAL-PF) SQ STA (17:41)
[2024-08-16] MEDS: SILVER NITRATE APPLICATOR 1 EACH STICK..EA. TOPICAL STA (18:10)
--- NOTE | 2024-08-16 18:28 | ED ---
Lower Extremity Injury HPI - General Chief Complaint: Extremity Injury, Lower Stated Complaint: R Toe Injury Source: patient Mode of arrival: ambulatory Limitations: no limitations - History of Present Illness Initial Comments: 38-year-old male presents to the ER with right toe laceration. Patient went to [facility] urgent care and was sent here from there. Patient reports that at baseline he has neuropathy at baseline but is able to move the toe. Patient denies any allergies to any medications. Denies any history of blood thinner use. - Related Data Previous Rx's Medication Instructions Recorded Acetaminophen Tab [Tylenol] 650 mg PO Q4HR PRN tab 03/19/24 Escitalopram [Lexapro] 10 mg PO DAILY 30 Days #30 tab 03/19/24 Ibuprofen [Motrin] 600 mg PO Q6HR PRN tab 03/19/24 Omeprazole 40 mg PO DAILY 30 Days #30 cap 03/19/24 traZODone HCL [Desyrel] 25 mg PO HS PRN 28 Days #14 tab 03/19/24 Allergies Allergy/AdvReac Type Severity Reaction Status Date / Time No Known Allergies Allergy Verified 04/22/24 00:18 Review of Systems ROS Statement: Those systems with pertinent positive or pertinent negative responses have been documented in the HPI. ROS Other: All systems not noted in ROS Statement are negative. Constitutional: Denies: fever, chills Respiratory: Denies: cough, dyspnea Cardiovascular: Denies: chest pain, palpitations Neurological: Denies: headache, weakness Psychiatric: Denies: anxiety, depression Past Medical History Past Medical History: Diabetes Mellitus Additional Past Medical History / Comment(s): neuropathy, foot drop History of Any Multi-Drug Resistant Organisms: None Reported Past Surgical History: Orthopedic Surgery, Tonsillectomy Additional Past Surgical History / Comment(s): left ankle Past Anesthesia/Blood Transfusion Reactions: No Reported Reaction Past Psychological History: Depression Smoking Status: Never smoker Past Alcohol Use History: None Reported Past Drug Use History: None Reported - Past Family History Mother Family Medical History: Hearing Disorder / Deafness Father Family Medical History: Cancer General Exam Limitations: no limitations General appearance: alert, in no apparent distress Head exam: Present: atraumatic, normocephalic Right Hip exam: Present: normal inspection Upper Leg exam: Present: normal inspection Knee exam: Present: normal inspection Lower Leg exam: Present: normal inspection Ankle exam: Present: normal inspection Foot/Toe exam: Present: laceration (Deep laceration of third digit no visible fracture) Neurovascular tendon exam: Present: no vascular compromise. Absent: pulse deficit, sensory deficit Course Vital Signs 08/16/24 16:05 Temperature 99.2 F Pulse Rate 92 Respiratory 18 Rate Blood Pressure 147/92 O2 Sat by Pulse 99 Oximetry Procedures - Laceration Laceration #1 Consent Obtained: verbal consent Indication: laceration Site: foot (Right third digit) Description: linear, clean Depth: involves muscle layer Anesthetic Used: lidocaine 1% Anesthesia Technique: nerve block Pre-repair: wound explored Type of Sutures: vicryl Size of Sutures: 3-0 Technique: running Patient Tolerated Procedure: well, no complications Medical Decision Making - Medical Decision Making Was pt. sent in by a medical professional or institution (, FERNANDO, ELEVATOR DISPATCHER, urgent care, hospital, or fdc...) When possible be specific @ -No Did you speak to anyone other than the patient for history (EMS, parent, family, police, friend...)? What history was obtained from this source @ -No Did you review nursing and triage notes (agree or disagree)? Why? @ -I reviewed and agree with nursing and triage notes Were old charts reviewed (outside hosp., previous admission, EMS record, old EKG, old radiological studies, urgent care reports/EKG's, fdc records)? Report findings @ -No old charts were reviewed Differential Diagnosis? @ -Right toe laceration EKG interpreted by me (3pts min.). @ -As above X-rays interpreted by me (1pt min.). @ -None done CT interpreted by me (1pt min.). @ -None done U/S interpreted by me (1pt. min.). @ -None done What testing was considered but not performed or refused? (CT, X-rays, U/S, labs)? Why? @ -None What meds were considered but not given or refused? Why? @ -None Did you discuss the management of the patient with other professionals (professionals i.e. FERNANDO Nelson, ELEVATOR DISPATCHER, lab, RT, psych nurse, social worker health services, django developer, teacher, environmental conservation officer, medical case manager)? Give summary @ -Case was discussed with the ED attending Dr. Wilkins. Was smoking cessation discussed for >3mins.? @ -No Was critical care preformed (if so, how long)? @ -No Were there social determinants of health that impacted care today? How? (Homelessness, low income, unemployed, alcoholism, drug addiction, transportation, low edu. Level, literacy, decrease access to med. care, fpc, rehab)? @ -No Was there de-escalation of care discussed even if they declined (Discuss DNR or withdrawal of care, Hospice)? DNR status @ -No What co-morbidities impacted this encounter? (DM, HTN, Smoking, COPD, CAD, Cancer, CVA, ARF, Chemo, Hep., AIDS, mental health diagnosis, sleep apnea, morbid obesity)? @ -None Was patient admitted / discharged? Hospital course, mention meds given and route, prescriptions, significant lab abnormalities, going to OR and other pertinent info. @ -Right toe laceration was repaired without complication. Patient will be discharged home with self-care. Patient will follow-up with podiatry. Undiagnosed new problem with uncertain prognosis? @ -No Drug Therapy requiring intensive monitoring for toxicity (Heparin, Nitro, Insulin, Cardizem)? @ -No Were any procedures done? @ -No Diagnosis/symptom? @ -Right toes laceration Acute, or Chronic, or Acute on Chronic? @ -Acute Uncomplicated (without systemic symptoms) or Complicated (systemic symptoms)? @ -Default Side effects of treatment? @ -No Exacerbation, Progression, or Severe Exacerbation? @ -No Poses a threat to life or bodily function? How? (Chest pain, [place], [place], pneumonia, PE, COPD, DKA, ARF, appy, cholecystitis, CVA, Diverticulitis, Homicidal, Suicidal, threat to staff... and all critical care pts) @ -No Disposition Clinical Impression: Laceration of toe of right foot Disposition: HOME SELF-CARE Is patient prescribed a controlled substance at d/c from ED?: No Referrals: Louie Stockton MD [Primary Care Provider] - 1-2 days Time of Disposition: 17:00
[2024-08-16 18:45] VITALS: BP 143/87; RESP 20; TEMP 98.5
== END 2024-08-16 18:45 | disposition home or self-care (01) ==
LOC: EC 16:03
DX: S91.114A Laceration without foreign body of right lesser toe(s) without damage to nail, initial encounter (principal); X58.XXXA Exposure to other specified factors, initial encounter
CPT/HCPCS: 73660; 99283; 12001; J2003

== ENCOUNTER 2024-09-07 21:43 | Inpatient (IN) | payer MEDICARE, MEDICAID ==
--- NOTE | 2024-09-08 01:09 | ED ---
Psych HPI - General Chief Complaint: Psychiatric Symptoms Stated Complaint: Mental health Time Seen by Provider: 09/07/24 22:31 Source: patient Mode of arrival: ambulatory - History of Present Illness Initial Comments: 38-year-old male presenting for mental health evaluation. Patient reports that he was having thoughts of harming himself today. He states he had a plan to end his life by jumping into traffic. States that he is stressed out because of the way his fiance's family treats him and his fiance. He has no homicidal ideation. No hallucinations. No other complaints today. - Related Data Previous Rx's Medication Instructions Recorded Acetaminophen Tab [Tylenol] 650 mg PO Q4HR PRN tab 03/19/24 Escitalopram [Lexapro] 10 mg PO DAILY 30 Days #30 tab 03/19/24 Ibuprofen [Motrin] 600 mg PO Q6HR PRN tab 03/19/24 Omeprazole 40 mg PO DAILY 30 Days #30 cap 03/19/24 traZODone HCL [Desyrel] 25 mg PO HS PRN 28 Days #14 tab 03/19/24 Allergies Allergy/AdvReac Type Severity Reaction Status Date / Time No Known Allergies Allergy Verified 09/07/24 21:51 Review of Systems ROS Statement: Those systems with pertinent positive or pertinent negative responses have been documented in the HPI. ROS Other: All systems not noted in ROS Statement are negative. Past Medical History Past Medical History: Diabetes Mellitus Additional Past Medical History / Comment(s): neuropathy, foot drop History of Any Multi-Drug Resistant Organisms: None Reported Past Surgical History: Orthopedic Surgery, Tonsillectomy Additional Past Surgical History / Comment(s): left ankle Past Anesthesia/Blood Transfusion Reactions: No Reported Reaction Past Psychological History: Depression Smoking Status: Never smoker Past Alcohol Use History: None Reported Past Drug Use History: None Reported - Past Family History Mother Family Medical History: Hearing Disorder / Deafness Father Family Medical History: Cancer General Exam Limitations: no limitations General appearance: alert, in no apparent distress Head exam: Present: atraumatic, normocephalic, normal inspection Eye exam: Present: normal appearance, EOMI Neck exam: Present: normal inspection. Absent: meningismus Respiratory exam: Absent: respiratory distress Neurological exam: Present: alert, oriented X3 Psychiatric exam: Present: normal affect, normal mood Skin exam: Present: warm, dry, normal color Course Vital Signs 09/07/24 21:48 Temperature 98.3 F Pulse Rate 111 H Respiratory 20 Rate Blood Pressure 138/84 O2 Sat by Pulse 98 Oximetry Medical Decision Making - Medical Decision Making Was pt. sent in by a medical professional or institution (, FERNANDO, LABEL DRIER, urgent care, hospital, or penitentiary...) When possible be specific @ -No Did you speak to anyone other than the patient for history (EMS, parent, family, police, friend...)? What history was obtained from this source @ -No Did you review nursing and triage notes (agree or disagree)? Why? @ -I reviewed and agree with nursing and triage notes Were old charts reviewed (outside hosp., previous admission, EMS record, old EKG, old radiological studies, urgent care reports/EKG's, penitentiary records)? Report findings @ -No old charts were reviewed Differential Diagnosis (chest pain, altered mental status, abdominal pain women, abdominal pain men, vaginal bleeding, weakness, fever, dyspnea, syncope, headache, dizziness, GI bleed, back pain, seizure, CVA, palpatations, mental health, musculoskeletal)? @ -Differential Mental Health Depression, anxiety, bipolar, psychosis, schizophrenia, borderline personality, situational depression, adjustment disorder, behavioral disorder, brain tumor, malingering, substance abuse, encephalopathy, medication reaction, dementia, hypothyroidism, degenerative neurologic disorder, lupus.... This is not meant to be all-inclusive list EKG interpreted by me (3pts min.). @ -As above X-rays interpreted by me (1pt min.). @ -None done CT interpreted by me (1pt min.). @ -None done U/S interpreted by me (1pt. min.). @ -None done What testing was considered but not performed or refused? (CT, X-rays, U/S, labs)? Why? @ -None What meds were considered but not given or refused? Why? @ -None Did you discuss the management of the patient with other professionals (professionals i.e. , FERNANDO, LABEL DRIER, lab, RT, psych nurse, social media marketing analyst, scrub tech, teacher, licensing officer, bilingual patient support caseworker)? Give summary @ -Spoke with the EPS nurse who recommends admission Was smoking cessation discussed for >3mins.? @ -No Was critical care preformed (if so, how long)? @ -No Were there social determinants of health that impacted care today? How? (Homelessness, low income, unemployed, alcoholism, drug addiction, transportation, low edu. Level, literacy, decrease access to med. care, care home, rehab)? @ -No Was there de-escalation of care discussed even if they declined (Discuss DNR or withdrawal of care, Hospice)? DNR status @ -No What co-morbidities impacted this encounter? (DM, HTN, Smoking, COPD, CAD, Cancer, CVA, ARF, Chemo, Hep., AIDS, mental health diagnosis, sleep apnea, morbid obesity)? @ -None Was patient admitted / discharged? Hospital course, mention meds given and route, prescriptions, significant lab abnormalities, going to OR and other pertinent info. @ -38-year-old male presenting with suicidal ideation. He had plans to jump into traffic. No homicidal ideation. No other complaints today. Evaluated by EPS who determined the patient meets criteria for admission. Patient will be admitted to our psychiatric unit. My attending is Dr. Avila Undiagnosed new problem with uncertain prognosis? @ -No Drug Therapy requiring intensive monitoring for toxicity (Heparin, Nitro, Insulin, Cardizem)? @ -No Were any procedures done? @ -No Diagnosis/symptom? @ -Suicidal ideation Acute, or Chronic, or Acute on Chronic? @ -Acute Uncomplicated (without systemic symptoms) or Complicated (systemic symptoms)? @ -Complicated Side effects of treatment? @ -No Exacerbation, Progression, or Severe Exacerbation? @ -No Poses a threat to life or bodily function? How? (Chest pain, [place], [place], pneumonia, PE, COPD, DKA, ARF, appy, cholecystitis, CVA, Diverticulitis, Homicidal, Suicidal, threat to staff... and all critical care pts) @ -Yes - Lab Data Lab Results 09/08/24 09/08/24 Range/Units 00:34 01:13 Urine Opiates Screen Not Detected (NotDetected) Ur Oxycodone Screen Not Detected (NotDetected) Urine Methadone Screen Not Detected (NotDetected) Ur Barbiturates Screen Not Detected (NotDetected) U Tricyclic Antidepress Not Detected (NotDetected) Ur Phencyclidine Scrn Not Detected (NotDetected) Ur Amphetamines Screen Not Detected (NotDetected) U Methamphetamines Scrn Not Detected (NotDetected) U Benzodiazepines Scrn Not Detected (NotDetected) Urine Cocaine Screen Not Detected (NotDetected) U Marijuana (THC) Screen Not Detected (NotDetected) Influenza Type A (PCR) Not Detected (Not Detectd) Influenza Type B (PCR) Not Detected (Not Detectd) RSV (PCR) Not Detected (Not Detectd) SARS-CoV-2 (PCR) Not Detected (Not Detectd) Disposition Clinical Impression: Suicidal ideation Disposition: ADMITTED IP TO THIS HOSP Condition: Fair Time of Disposition: 01:08
[2024-09-08 01:41] LABS: Amphetamine Screen,Urine Not Detected (NotDetected); Barbiturate Screen,Urine Not Detected (NotDetected); Benzodiazepines Screen,Urine Not Detected (NotDetected); Cocaine Screen,Urine Not Detected (NotDetected); Methadone Screen, Urine Not Detected (NotDetected); Opiate Screen,Urine Not Detected (NotDetected); Oxycodone Screen, Urine Not Detected (NotDetected); Phencyclidine Screen,Urine Not Detected (NotDetected); Tricyclic Antidepressant,Urine Not Detected (NotDetected); Urn Cannabinoid Scrn Not Detected (NotDetected)
[2024-09-08 01:57] LABS: Influenza A Not Detected (Not Detectd); Influenza B Not Detected (Not Detectd); RSV Not Detected (Not Detectd)
[2024-09-08] MEDS ORDERED: OLANZapine 7.5 MG TAB PO PRN (02:43)
[2024-09-08] MEDS ORDERED: hydrOXYzine HCL 25 MG TAB PO PRN (02:43)
[2024-09-08] MEDS ORDERED: hydrOXYzine HCL 50 MG/ML 1 ML VIAL IM PRN (02:43)
[2024-09-08] MEDS ORDERED: MAG HYDROX/AL HYDROX/SIMETH 355 ML BOTTLE PO PRN (02:43)
[2024-09-08] MEDS ORDERED: IBUPROFEN 600 MG TAB PO PRN (02:43)
[2024-09-08] MEDS ORDERED: ACETAMINOPHEN TAB 325 MG TAB PO PRN (02:43)
[2024-09-08] MEDS ORDERED: OLANZapine 10 MG VIAL IM PRN (02:43)
[2024-09-08] MEDS ORDERED: MAGNESIUM HYDROXIDE 2,400 MG/30 ML CUP PO PRN (02:43)
[2024-09-08] MEDS ORDERED: traZODone HCL 50 MG TAB PO PRN ×2 (02:43→09:35)
[2024-09-08] MEDS ORDERED: OLANZapine 5 MG TAB PO PRN (02:58)
[2024-09-08 07:45] LABS: Appearance,Urine Clear (Clear); Bilirubin,Urine Negative (Negative); Blood,Urine Negative (Negative); Color,Urine Yellow; Glucose,Urine (UA) Negative (Negative); Ketones,Urine Negative (Negative); Leukocyte Esterase,Urine Negative (Negative); Nitrite,Urine Negative (Negative); Protein,Urine Negative (Negative); Specific Gravity,Urine 1.027 (1.001-1.035); Urobilinogen,Urine <2.0 mg/dL (<2.0)
[2024-09-08 08:41] LABS: Basophils # (A) 0.04 10*3/uL (0.00-0.10); Basophils % (A) 0.4 %; Eosinophils # (A) 0.12 10*3/uL (0.04-0.35); Eosinophils % (A) 1.3 %; HCT 40.7 % (39.6-50.0); Lymphocytes # (A) 2.27 10*3/uL (0.90-5.00); Lymphocytes % (A) 25.1 %; MCH 33.6 pg (27.0-32.0); MCHC 34.4 g/dL (32.0-37.0); MCV 97.6 fL (80.0-97.0); Mean Platelet Volume 9.2 fL (9.5-12.2); Monocytes % (A) 6.6 %; Neutrophils # (A) 5.96 10*3/uL (1.80-7.70); Neutrophils % (A) 66.2 %; Platelet Count 209 10*3/uL (140-440); RBC 4.17 10*6/uL (4.40-5.60); RDW 14.4 % (11.5-14.5); WBC 9.03 10*3/uL (4.50-10.00)
[2024-09-08 09:34] LABS: ALT 27 U/L (4-49); AST 29 U/L (17-59); African American GFR (CKD) >90 (>60 ml/min/1.73 sqM); Albumin 3.7 g/dL (3.5-5.0); Alkaline Phosphatase 83 U/L (38-126); Anion Gap 10 mmol/L; Bilirubin, Delta 0.3 mg/dL (0.0-0.2); Bilirubin,Unconjugated 0.6 mg/dL (0.0-1.1); Blood Urea Nitrogen 20 mg/dL (9-20); Calcium 9.1 mg/dL (8.4-10.2); Carbon Dioxide 23 mmol/L (22-30); Chloride 105 mmol/L (98-107); Glucose 128 mg/dL (74-99); Non-African American GFR(CKD) >90 (>60 ml/min/1.73 sqM); Sodium 138 mmol/L (137-145); Total Bilirubin 0.9 mg/dL (0.2-1.3); Total Protein 6.7 g/dL (6.3-8.2)
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
[2024-09-08] MEDS: CEPHALEXIN 500 MG CAP PO SCH (10:28)
[2024-09-08] MEDS: NICOTINE 14MG/24HR PATCH TRANSDERM SCH (10:28)
[2024-09-08] MEDS: PANTOPRAZOLE 40 MG TABLET PO SCH (10:29)
[2024-09-08] MEDS: ESCITALOPRAM 10 MG TAB PO SCH (10:29)
[2024-09-08] MEDS: SILVER sulfADIAZINE Cream 400 GM 1 APPLIC APPLIC TOPICAL SCH (10:30)
[2024-09-08 15:24] LABS: Chol/HDL Ratio 3.34 Ratio; LDL Cholesterol,Calculated 89.9 mg/dL (0.0-131.0)
--- NOTE | 2024-09-09 10:20 | P.PN ---
Progress Note - Text Progress Note Date: 09/09/24 Interval History: Patient was seen lying in bed and the interview was done in the patient's room. Patient notes that he had a rough night this was related to pain issues and aches from walking a long distance. He notes that his depression was currently 4 and his anxiety is 0. He notes that he feels tired. He notes that his appetite and concentration are good. He notes that he spoke to his fiance last night we did discuss the relationship between him and her father. He notes that he does not like them because he is not a [employer]. At this time patient denies any suicidal or homical ideations, intent or plan. Patient denies any auditory, visual hallucinations and denies any paranoia or delusions. Patient denies any side effects from the medications and has been compliant with meds. Mental Status Exam: General Appearance: Patient appeared to be groomed and dressed appropriately Behavior: The patient was resting calmly in his bed with no agitated behavior and was easily awaken. Speech: Patient's speech is fluent and nonpressured. Mood/Affect: Mood is improving mildly, affect is congruent and constricted. Suicidality/Homicidality: Patient denies having any suicidal or homicidal ideation intent or plan. Perceptions: Patient denies any visual hallucinations and denies any auditory hallucinations Though content/process: There is no evidence of any delusional thought content and thought process is linear and goal-directed. 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 Patient is limited for mobility due to his health. It is felt that possible discharge tomorrow might be an option. PLAN: -Patient is admitted under voluntary status to MHU for stabilization of psychiatric symptoms and safety. Patient has signed adult voluntary form and medication consent and is placed in patient's chart. -Medications : Continue Lexapro 10 mg take 1 tablet by mouth once daily for depression/anxiety -Ativan and Haldol PRN for agitation/aggression -Patient was informed of the risks, benefits and side effects of the medication and patient verbally consented to taking the medications. Patient signed med consent form and was placed in chart. -Internal Medicine consult to perform medical evaluation and physical. -NRT -not needed as patient does not smoke -SW on board for discharge planning. Encourage patient to participate in groups to work on coping skills.
--- NOTE | 2024-09-09 17:36 | P.CONS ---
History of Present Illness - Reason for Consult Consult date: 09/09/24 - History of Present Illness Patient is a 38-year-old male with a history of major depressive disorder and prediabetes being seen in the mental health unit for medical management. Patient was on Ozempic for some time and was taken off of it last year. Patient was admitted to the mental health unit after he had a plan to end his life by jumping into traffic. Patient does drink coffee and soda daily. Drinks 1 beer and 1 shot of whiskey daily. Denies any recreational drug use. Patient reports a dry cough over the past month. Denies fever, chills, nausea, vomiting, chest pain or palpitations, belly pain, diarrhea, constipation, lower extremity swelling. ED documentation reviewed. In the ED patient was treated with nicotine patch. Vitals on admission temperature 97.6, pulse rate of 96, respirate 16, blood pr essure 131/91, O2 sat 98% on room air Labs on admission show WBC 9.03, hemoglobin 14, hematocrit 40.7, platelet 209, sodium 138, potassium 4.0, chloride 105, carbon oxide 23, BUN 20, creatinine 0.65, glucose 128, AST 29, ALT 27, alkaline phosphatase 83 UA shows negative for nitrite and leukocyte esterase Review of systems: Pertinent positives and negatives as discussed in HPI, a complete review of systems was performed and all other systems are negative. PMH: Diabetes mellitus, neuropathy PSH: Orthopedic surgery tonsillectomy FMH: Sister suffers from mental illness and niece suffers from substance abuse Allergies: No known drug allergies Social history: Tobacco: Never smoker Alcohol: 1 beer and 1 shot of whiskey daily Recreational drugs: Denies any recreational drug use Travel: No travel history Sick contacts: No sick contact Physical examination: Vital signs reviewed General: nontoxic, no distress, appears at stated age Derm: warm, dry, intact Head: atraumatic, normocephalic, symmetric Eyes: EOMI, anicteric sclera Mouth: no lip lesion, mucus membranes moist Cardiovascular: S1 S2 reg, no murmur Lungs: CTA bilateral, no rhonchi, no rales, no accessory muscle use Abdominal: soft, non-tender to palpation Extremities: No cyanosis, clubbing, or pedal edema. Neuro: Alert, Oriented, Gross neurological examination did not reveal any focal deficits. Psych: well appearing, appropriate affect Assessment/Plan: 38-year-old male with history of major depressive disorder diabetes mellitus obesity in the mental health unit for medical management. Patient has been evaluated in the MHU for feeling suicidal. Active: #. Dry cough Advised to use Tylenol and Motrin as needed for symptoms #. Prediabetes Hemoglobin A1c 9.1 #. GERD Restart omeprazole 40 mg daily #. Suicidal ideation Defer psychiatric management to primary team I have seen and evaluated the patient today. Discussed with the resident and agree with the residents finding and plan as documented in the resident's note. Changes highlighted in blue font. Past Medical History Past Medical History: Diabetes Mellitus Additional Past Medical History / Comment(s): neuropathy, foot drop History of Any Multi-Drug Resistant Organisms: None Reported Past Surgical History: Orthopedic Surgery, Tonsillectomy Additional Past Surgical History / Comment(s): left ankle Past Anesthesia/Blood Transfusion Reactions: No Reported Reaction Smoking Status: Never smoker - Past Family History Mother Family Medical History: Cancer, Hearing Disorder / Deafness Father Family Medical History: Cancer Medications and Allergies Home Medications Medication Instructions Recorded Confirmed Type Acetaminophen Tab [Tylenol] 650 mg PO Q4HR PRN tab 03/19/24 Rx Escitalopram [Lexapro] 10 mg PO DAILY 30 Days #30 tab 03/19/24 Rx Ibuprofen [Motrin] 600 mg PO Q6HR PRN tab 03/19/24 Rx Omeprazole 40 mg PO DAILY 30 Days #30 cap 03/19/24 Rx traZODone HCL [Desyrel] 25 mg PO HS PRN 28 Days #14 tab 03/19/24 Rx Allergies Allergy/AdvReac Type Severity Reaction Status Date / Time No Known Allergies Allergy Verified 09/07/24 21:51 Physical Exam Vitals: Vital Signs Temp Pulse Resp BP Pulse Ox 09/09/24 09:00 97.6 F 96 16 131/91 09/08/24 21:41 98.6 F 101 H 18 131/92 98 Results CBC & Chem 7: 09/08/24 08:27 09/08/24 08:27
[2024-09-09 21:38] VITALS: RESP 18
[2024-09-10 09:28] VITALS: BP 126/86; PULSE 99; TEMP 97.6
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
== END 2024-09-10 12:03 | disposition home or self-care (01) | DRG 882 ==
LOC: EC 21:43 → 3MHU 09-08 02:25
PROVIDERS: ADMIT Psychiatry & Neurology Psychiatry; ATTEND Psychiatry & Neurology Psychiatry
DX: F43.25 Adjustment disorder with mixed disturbance of emotions and conduct (principal); R45.851 Suicidal ideations; Z91.148 Patient's other noncompliance with medication regimen for other reason; F32.0 Major depressive disorder, single episode, mild; Z11.52 Encounter for screening for COVID-19; E11.42 Type 2 diabetes mellitus with diabetic polyneuropathy; E66.9 Obesity, unspecified; Z68.42 Body mass index [BMI] 45.0-49.9, adult; F41.9 Anxiety disorder, unspecified; K21.9 Gastro-esophageal reflux disease without esophagitis; R05.8 Other specified cough; Z79.899 Other long term (current) drug therapy; Z81.8 Family history of other mental and behavioral disorders; M21.379 Foot drop, unspecified foot; Z79.85 Long-term (current) use of injectable non-insulin antidiabetic drugs
CPT/HCPCS: 80053; 80061; 80306; 81003; 82075; 82248; 83036; 84443; 85025; 87636; 99285